=== PATIENT | male | born 1960 | race Caucasian/White ===

== ENCOUNTER 2017-07-09 11:06 | Inpatient (IN) ==
[2017-07-09] MEDS ORDERED: IOPAMIDOL 100 ML BOTTLE IJ ONE (11:07)
[2017-07-09] MEDS ORDERED: 0.9 % SODIUM CHLORIDE 1,000 ML IV ONE (11:12)
[2017-07-09] MEDS ORDERED: ONDANSETRON 4 MG/2 ML VIAL IV ONE (11:12)
[2017-07-09 11:42] LABS: Basophils # (Auto) 0.1 K/mcL (0.0-0.3); Basophils % (Auto) 0.5 % (0.0-2.0); Eosinophils # (Auto) 0 K/mcL (0.0-0.7); Eosinophils % (Auto) 0 % (0.0-7.0); Granulocytes % (Auto) 87.2 % (38.0-78.0); Lymphocytes # (Auto) 1.1 K/mcL (1.5-4.8); Lymphocytes % (Auto) 6.7 % (15.5-49.0); Mean Corpuscular HGB Conc 33.7 g/dL (31.0-36.0); Mean Corpuscular Hemoglobin 31.7 pg (26.0-34.0); Monocytes # (Auto) 0.9 K/mcL (0.1-0.9); Monocytes % (Auto) 5.6 % (1.0-12.0); Platelet Count 249 K/mcL (140-440); Red Cell Distribution Width 12.9 % (11.5-14.5)
[2017-07-09] MEDS ORDERED: HYDROmorphone 2 MG/ML SYRINGE IV SCH (11:45)
[2017-07-09 12:00] LABS: ALT/SGPT 34 U/l (0-40); Albumin 4.7 gm/dL (3.2-5.2); Albumin/Globulin Ratio 1.7 (1.0-2.3); Alkaline Phosphatase 79 U/L (39-117); Blood Urea Nitrogen 17 mg/dl (6-20); Lipase 16 U/L (7-60)
--- NOTE | 2017-07-09 12:22 | XRay Report ---
CLINICAL INFORMATION: Abdominal pain. Constipation. TECHNIQUE: Supine and upright AP abdomen COMPARISON: Previous examinations dated 05/24/2016, 05/23/2016. FINDINGS: There is a spinal cord stimulator present. Patient has undergone previous lumbar surgery with posterior decompression and spinal fusion from L2 through the sacrum. There is gas throughout small and large bowel. Colon is distended and measures approximately 7 cm in maximum cross-sectional diameter. No transition point identified. There is no pneumoperitoneum. No biliary or portal venous gas. No pneumatosis. Findings are essentially unchanged since previous examinations. 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 Generalized chronic ileus of uncertain etiology is possible. No acute or focal abnormalities. No interval change IMPRESSION: Gaseous distention of small and large bowel. Appearance is essentially unchanged since 05/23/2016 Interpreted and Authenticated by: Marcel Mae 07/09/17
[2017-07-09] MEDS ORDERED: HYDROmorphone 2 MG/ML SYRINGE IV PRN (13:50)
--- NOTE | 2017-07-09 14:05 | Cat Scan Report ---
CLINICAL INFORMATION: Abdominal pain. History of small bowel obstruction COMPARISON: Previous CT scan dated 05/23/2016. Previous plain film examination dated 07/09/2017 and 05/24/2016 TECHNIQUE: Axial images were obtained through the abdomen and pelvis. Sagittally and coronally reformatted images. 80 mL nonionic contrast material injected intravenously. Oral contrast material was administered FINDINGS: There is gas and fecal material within the colon. There is dilatation of jejunum and a portion of the ileum. There is dilute contrast material was in the jejunum and fluid within the ileum. There is small bowel feces sign. There is a transition point in the right side of the abdomen. Transition point appears to be best visualized on coronal image 63/154 and sagittal image 61/179. A definite closed loop obstruction is not identified appearance is consistent with mechanical small bowel structures in. This is probably partial and chronic or intermittent. There is no pneumoperitoneum. No pneumatosis. No biliary or portal venous gas. No localized wall thickening. No evidence for bowel ischemia. There is no free intraperitoneal fluid. I am not given a history of previous surgery. If there has been surgery this obstruction may be secondary to adhesions. Internal hernia is possible. Lung bases are negative for. No consolidation. No pleural fluid. No pericardial fluid. There is a small hiatal hernia. Stomach is distended and filled with contrast material. Liver is negative. No focal intrahepatic abnormality. There are surgical clips in the gallbladder fossa. No dilated bile ducts. Spleen is negative. No splenomegaly. Normal enhancement splenic and portal veins Negative pancreas. No pancreatic mass. No peripancreatic abnormality. Negative adrenal glands. Kidneys are negative. No solid or cystic mass. No hydronephrosis. There are bladder is negative. No bladder calculi. There are multiple phleboliths within the pelvis. No intra-abdominal abscess. No inguinal or anterior abdominal wall hernia. No retroperitoneal or mesenteric adenopathy. Patient has undergone previous lumbar surgery with posterior fusion extending from L3 through S1. There are spinal cord stimulator leads present. IMPRESSION: 1. Mechanical small bowel obstruction with transition point in the right side of the lower abdomen. There continues to be gas and fecal material within the colon consistent with partial mechanical small bowel obstruction which is probably chronic or recurrent 2. Obstruction is probably related to adhesions or internal hernia Interpreted and Authenticated by: Marcel Mae 07/09/17
--- NOTE | 2017-07-09 14:47 | Emergency Department Note ---
Abdominal Pain HPI - General Chief Complaint: Abdominal Pain Stated Complaint: L upper abd pain Time Seen by Provider: 07/09/17 11:12 Source: patient, EMS Mode of arrival: EMS Limitations: no limitations - History of Present Illness HPI Narrative: 56-year-old male presents with diffuse abdominal pain, worse in the left upper quadrant. Believes he has a bowel obstruction. States he has had around till 10 bowel obstructions and this is exactly what happens. Last bowel movement was small and hard and was a couple days ago. States he has adhesions and scar tissues which cause chronic bowel obstructions. Has been vomiting today. Abdominal pain for 3-4 days getting worse. No fever. Positive chills. No dysuria or frequency. No treatments prior to arrival. Consistency: constant, other (With distention) Location: diffuse Associated symptoms: Reports: nausea, vomiting, chills, constipation. Denies: diarrhea, fever, dysuria, hematemesis, hematochezia, hematuria, anorexia, syncope - Related Data Home Medications Medication Instructions Recorded Confirmed Albuterol Sulfate [Proair Hfa] 1 - 2 puff PO Q4HP PRN 05/23/16 07/09/17 Bisacodyl [Dulcolax] 5 mg PO BID 05/23/16 07/09/17 Cetirizine HCl [Zyrtec] 10 mg PO DAILY 05/23/16 07/09/17 Fexofenadine [Cindy] 180 mg PO DAILY 05/23/16 07/09/17 Montelukast Sodium [Singulair] 10 mg PO DAILY 05/23/16 07/09/17 Theophylline Anhydrous 400 mg PO BID@0900,1400 05/23/16 07/09/17 [Theophylline] Zolpidem Tartrate [Ambien Cr] 12.5 mg PO HS 05/23/16 07/09/17 Cholecalciferol (Vitamin D3) 50,000 unit PO UD 05/24/16 07/09/17 [Vitamin D3] EPINEPHrine [Adrenalin] 0.33 ml SQ PRN PRN 05/24/16 07/09/17 HYDROcodone/APAP 10/325MG [[place] 1 tab PO Q4H PRN 05/24/16 07/09/17 10/325Mg] Ipratropium/Albuterol Sulfate 2 puff INH QID 05/24/16 07/09/17 [Combivent] Ipratropium/Albuterol [Duoneb] 3 ml NEB Q4HP PRN 05/24/16 07/09/17 Nefazodone HCl 300 mg PO BID@0900,1400 05/24/16 07/09/17 Omeprazole [Prilosec] 40 mg PO ACB 05/24/16 07/09/17 buPROPion [Wellbutrin Sr] 100 mg PO DAILY 05/24/16 07/09/17 predniSONE [Prednisone] 10 mg PO QOD@09,15,21 05/24/16 07/09/17 Previous Rx's Medication Instructions Recorded Beclomethasone Dipropionate [Qvar 2 puff INH BID #1 inhaler 05/27/16 40] Allergies Allergy/AdvReac Type Severity Reaction Status Date / Time iodine Allergy Mild Hives Verified 07/09/17 11:11 morphine AdvReac Mild Itching Verified 07/09/17 15:28 NUTS Allergy Severe Anaphylaxis Uncoded 03/14/17 15:11 SHELLFISH Allergy Severe Anaphylaxis Uncoded 03/14/17 15:11 Review of Systems All systems ED: reviewed and negative except as stated. Abdominal Pain PMH - Past Medical History Medical history: Reports: asthma, other (chronic back pain uses pain clinic, hx of sbo- recurrent, asthma) Surgical history ED: Reports: other (back surgery) - Social History Smoking status: Former smoker Alcohol use: Reports: None Drug use: Reports: none Physical Exam Limitations: no limitations General appearance: alert, in no apparent distress Head: atraumatic, normocephalic, normal inspection Eye: Present: normal appearance. Absent: conjunctival injection ENT: normal exam, normal oropharynx, mucous membranes moist, TM's normal bilaterally, normal external ear exam Neck: Present: normal inspection, trachea midline. Absent: tenderness, lymphadenopathy Chest: Present: normal inspection, symmetric chest wall rise Respiratory: Present: normal lung sounds bilaterally. Absent: respiratory distress, wheezes, accessory muscle use Cardiovascular: Present: regular rate, normal heart sounds Abdominal: Present: distention, tenderness, hypoactive bowel sounds. Absent: guarding, rebound (Diffuse) Extremities: Present: normal inspection Neurological: Present: alert, oriented X3 Psychiatric: Present: normal affect, normal mood Skin: Present: warm, dry, intact, normal color. Absent: rash, cyanosis, diaphoresis, erythema Course Course Narrative: CT shows small bowel obstruction. Patient is required multiple doses of IV pain medication and nausea medication to keep pain and nausea under control. I did speak with Dr. Paul who agrees to admit patient. Vital Signs Temperature 97.8 F 07/09/17 11:07 Pulse Rate 71 07/09/17 11:07 Respiratory Rate 20 07/09/17 11:07 Blood Pressure 130/92 07/09/17 11:07 Temperature 97.8 F 07/09/17 11:07 Pulse Rate 63 07/09/17 15:01 Respiratory Rate 11 L 07/09/17 15:01 Blood Pressure 121/86 07/09/17 15:01 Pulse Oximetry (%) 94 07/09/17 15:01 Abdominal Pain - Lab Data Lab results reviewed: Yes I reviewed the patient's lab results. Result diagrams: 07/09/17 11:19 07/09/17 11:19 Lab Results 07/09/17 07/09/17 07/09/17 Range/Units 11:19 11:19 11:19 WBC 16.1 H (4.5-11.0) K/mcL RBC 5.60 (4.50-5.90) M/mcL Hgb 17.7 H (13.5-16.5) g/dL Hct 52.6 (41.0-55.0) % MCV 94.0 (80.0-100.0) fL MCH 31.7 (26.0-34.0) pg MCHC 33.7 (31.0-36.0) g/dL RDW 12.9 (11.5-14.5) % Plt Count 249 (140-440) K/mcL MPV 8.3 (7.4-10.4) fL Gran % 87.2 H (38.0-78.0) % Lymph % (Auto) 6.7 L (15.5-49.0) % Humphreys % (Auto) 5.6 (1.0-12.0) % Eos % (Auto) 0 (0.0-7.0) % Baso % (Auto) 0.5 (0.0-2.0) % Gran # 14.1 H (1.8-8.0) K/mcL Lymph # (Auto) 1.1 L (1.5-4.8) K/mcL Humphreys # (Auto) 0.9 (0.1-0.9) K/mcL Eos # (Auto) 0 (0.0-0.7) K/mcL Baso # (Auto) 0.1 (0.0-0.3) K/mcL VBG Lactic Acid 2.8 H (0.5-2.2) mmol/L Sodium 142 (133-145) mmol/L Potassium 4.0 (3.3-5.1) mmol/L Chloride 102 (96-108) mmol/L Carbon Dioxide 25 (22-30) mmol/L Anion Gap 15.0 (8-16) BUN 17 (6-20) mg/dl Creatinine 0.8 (0.7-1.2) mg/dl GFR Calculation 101 Glucose 140 H (70-105) mg/dL Calcium 10.1 (8.6-10.4) mg/dl Total Bilirubin 0.8 (0.0-1.0) mg/dL AST 25 (0-37) U/l ALT 34 (0-40) U/l Alkaline Phosphatase 79 (39-117) U/L Total Protein 7.5 (5.9-8.4) gm/dL Albumin 4.7 (3.2-5.2) gm/dL Globulin 2.8 (2.2-3.7) gm/dL Albumin/Globulin Ratio 1.7 (1.0-2.3) Lipase 16 (7-60) U/L - Radiology Data Radiology results reviewed: Yes I reviewed the patient's radiology results. Disposition Pt seen by [facility] only: Yes Clinical Impression: Abdominal pain, Vomiting, Small bowel obstruction Disposition: Home, Self-Care Condition: Fair Referrals: Ken Mena DO [Primary Care Provider] - Priya Paul MD [Physician] - Time of Disposition: 15:00
[2017-07-09] MEDS ORDERED: ONDANSETRON 4 MG/2 ML VIAL IV PRN (14:52)
--- NOTE | 2017-07-09 15:16 | Emergency Department Note ---
ED Note Addendum Note Addendum: PT EXAMINED AND LAB AND X RAY REVIEWED. AGREE WITH CONSULT TO DR ALEGRIA AND ADMISSION
[2017-07-09] MEDS ORDERED: ALBUTEROL SULFATE 1 PUFF INHALER INH PRN (15:24)
[2017-07-09] MEDS ORDERED: EPINEPHrine 1 MG/ML AMPUL SQ PRN (15:24)
[2017-07-09] MEDS ORDERED: PROMETHAZINE 25 MG/ML VIAL IV PRN (15:31)
[2017-07-09] MEDS ORDERED: METOPROLOL TARTRATE 5 MG/5 ML VIAL IV SCH (15:45)
[2017-07-09] MEDS: PANTOPRAZOLE 40 MG VIAL IV SCH (17:07)
[2017-07-09] MEDS: METOCLOPRAMIDE 10 MG/2 ML VIAL IV SCH (17:07)
[2017-07-09] MEDS: 0.9 % SODIUM CHLORIDE 1,000 ML IV SCH ×3 (17:41→21:22)
[2017-07-09] MEDS: NEFAZODONE PO SCH (17:42)
[2017-07-09] MEDS: HYDROmorphone 2 MG/ML SYRINGE IV PRN ×2 (17:42→21:20)
--- NOTE | 2017-07-09 17:48 | General Surg History&Physical ---
History of Present Illness Patient information: Note initiated : 07/09/17 at 5:44 pm Service Date, if different from initiated Date: [] Patient: Scott Bright a 56 y/o M admitted on 07/09/17 for L upper abd pain. Chief Complaint: [] HPI: Mr. Bright is a 56 year old M who was admitted with partial intestinal obstruction complicated by chronic narcotic use with narcotic induced constipation and ileus. The patient had onset of crampy diffuse abdominal pain about 1700 hrs. on 08 July. This was followed by large volume emesis which prompted him to finally come to the emergency room. In the emergency room he was noted to have a tender dilated abdomen with increased dilation of small bowel as well as colon with increased stool in his colon. His last bowel movement was 3 days ago but he has had flatus at least twice a day. He states that his pain is better his weight has been stable. The patient was admitted to this facility in May 2016 with a similar picture. He has a history of recurrent intestinal obstruction. 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 He has had multiple admissions to [facility] and has been treated primarily with decompression and bowel rest. He had his last operation at hospital in [facility] in January 2017. He had a adhesio lysis there. I last evaluated him in late March 2017 and he was doing well. He states that he did well as long as he took his MiraLAX but over the last few days he has not taken it as prescribed. He continues to take 60 mg of hydrocodone per day which is a major aggravating factor in addition to his adhesive disease. Review of Systems - Constitutional as per HPI - EENT Nose, mouth and throat: headache(s), no dysphagia, no sore throat - Cardiovascular palpatations, rapid heart rate, no chest pain, no dyspnea on exertion - Respiratory wheezing - Gastrointestinal abdominal pain, belching, bloating, change in bowel habits, change in stool character, constipation, dyspepsia, early satiety, heartburn, nausea, vomiting - Genitourinary no dysuria, no urinary frequency, no urinary incontinence, no urinary urgency - Musculoskeletal arthralgias, back pain, joint swelling, myalgias, stiffness - Integumentary no new lesions, no pruritus, no rash - Neurological no abnormal gait, no confusion, no dizziness - Psychiatric anxiety, depression, mood swings, panic attacks - Endocrine palpitations - Hematologic/Lymphatic no easy bleeding, no easy bruising, no lymphadenopathy - Allergic/Immunologic tongue swelling, throat swelling, uticaria, wheezing, lip swelling Past History Past medical history: History of idiopathic anaphylaxis History of chronic asthma with frequent exacerbations History of chronic low back pain History of recurrent small bowel obstruction Past surgical history: Exploratory laparotomy for volvulus 2 Exploratory laparotomy for adhesive disease 3 Small bowel resection 1 Lumbar fusion Spinal stimulator placement Past family history: Diabetes mellitus Coronary artery disease Past social history: former smoker Disabled No alcohol use No drug use Medications and Allergies Home Medications Medication Instructions Recorded Confirmed Type Albuterol Sulfate [Proair Hfa] 1 - 2 puff PO Q4HP PRN 05/23/16 07/09/17 History Bisacodyl [Dulcolax] 5 mg PO BID 05/23/16 07/09/17 History Cetirizine HCl [Zyrtec] 10 mg PO DAILY 05/23/16 07/09/17 History Fexofenadine [Cindy] 180 mg PO DAILY 05/23/16 07/09/17 History Montelukast Sodium [Singulair] 10 mg PO DAILY 05/23/16 07/09/17 History Theophylline Anhydrous 400 mg PO BID@0900,1400 05/23/16 07/09/17 History [Theophylline] Zolpidem Tartrate [Ambien Cr] 12.5 mg PO HS 05/23/16 07/09/17 History Cholecalciferol (Vitamin D3) 50,000 unit PO UD 05/24/16 07/09/17 History [Vitamin D3] EPINEPHrine [Adrenalin] 0.33 ml SQ PRN PRN 05/24/16 07/09/17 History HYDROcodone/APAP 10/325MG [[place] 1 tab PO Q4H PRN 05/24/16 07/09/17 History 10/325Mg] Ipratropium/Albuterol Sulfate 2 puff INH QID 05/24/16 07/09/17 History [Combivent] Ipratropium/Albuterol [Duoneb] 3 ml NEB Q4HP PRN 05/24/16 07/09/17 History Nefazodone HCl 300 mg PO BID@0900,1400 05/24/16 07/09/17 History Omeprazole [Prilosec] 40 mg PO ACB 05/24/16 07/09/17 History buPROPion [Wellbutrin Sr] 100 mg PO DAILY 05/24/16 07/09/17 History predniSONE [Prednisone] 10 mg PO QOD@09,15,21 05/24/16 07/09/17 History Beclomethasone Dipropionate [Qvar 2 puff INH BID #1 inhaler 05/27/16 07/09/17 Rx 40] Allergies Allergy/AdvReac Type Severity Reaction Status Date / Time iodine Allergy Mild Hives Verified 07/09/17 11:11 morphine AdvReac Mild Itching Verified 07/09/17 15:28 NUTS Allergy Severe Anaphylaxis Uncoded 03/14/17 15:11 SHELLFISH Allergy Severe Anaphylaxis Uncoded 03/14/17 15:11 Exam Temp Pulse Resp BP Pulse Ox 97.8 F 66 10 L 135/91 93 07/09/17 16:36 07/09/17 16:36 07/09/17 16:36 07/09/17 16:36 07/09/17 16:36 - General physical appearance well developed, well nourished, moderate distress, moderate pain, obese - Eyes PERRL, normal ocular movement. negative: icteric - ENT normal pinna, normal nares, normal mucosa, no hearing loss, no congestion, other (Mucosa moist) - Head Head exam IM: Present: atraumatic, normal inspection, normocephalic - Neck no masses, no bruits, trachea midline, no lymphadectomy, no venous distension - Cardiovascular Cardiovascular exam IM: Present: normal rate and rhythm - Respiratory normal expansion, normal respiratory effort, clear to percussion, other ( Scattered wheezes) - Abdomen Abdomen: Present: soft, tender (Moderate distention with tympany; diffuse tenderness; well-healed midline scar), bowel sounds Hernia: Present: none - Genitourinary Present: normal penis with no external lesions - Integumentary Present: no rash, no growths, no abnormal pigmentation - Neurologic Present: normal coordination, normal sensation, other (Nerves II through XII intact; no focal motor deficit) - Musculoskeletal Present: normal gait (; gait and stance intact), normal posture - Psychiatric Present: oriented to time, oriented to person, oriented to place, speech is normal, memory intact Assessment and Plan (1) Adynamic ileus Status: Acute (2) Small bowel obstruction Relistor 12 mg subcu daily 4 Repeat abdominal x-rays in the morning Reglan 10 mg IV every 6 IV narcotic analgesics for pain Status: Acute (3) JENNA (obstructive sleep apnea) Use CPAP as needed and supplemental O2 as needed Status: Chronic (4) Depression Continue home medication with sips of water Status: Chronic Qualifiers: Depression Type: major depressive disorder Major depression recurrence: recurrent Active/Remission status: currently active Psychotic features: without psychotic features (5) GERD (gastroesophageal reflux disease) Reglan 10 mg IV every 6 hours Status: Chronic Qualifiers: Esophagitis presence: without esophagitis Qualified Code(s): K21.9 - Gastro -esophageal reflux disease without esophagitis (6) Spinal stenosis Status: Chronic (7) Chronic asthma not affecting current episode of care DuoNeb every 6 hours as needed Status: Chronic (8) Idiopathic anaphylactic reaction Status: Chronic (9) Chronic lower back pain Status: Chronic Qualifiers: Back pain laterality: bilateral Sciatica presence: without sciatica Qualified Code(s): M54.5 - Low back pain; G89.29 - Other chronic pain
[2017-07-09] MEDS: METHYLNALTREXONE BROMIDE 12 MG/0.6 ML SYRINGE SQ SCH (17:59)
[2017-07-09] MEDS: BECLOMETHASONE DIPROPIONATE 40MCG INHALER INH SCH (21:23)
[2017-07-10] MEDS: METOCLOPRAMIDE 10 MG/2 ML VIAL IV SCH ×5 (00:02→23:40)
[2017-07-10] MEDS ORDERED: HYDROmorphone 2 MG/ML SYRINGE ONE ×2 (00:35→04:53)
[2017-07-10] MEDS: 0.9 % SODIUM CHLORIDE 1,000 ML IV SCH ×7 (01:28→23:41)
[2017-07-10] MEDS: HYDROmorphone 2 MG/ML SYRINGE IV PRN ×6 (04:51→23:06)
--- NOTE | 2017-07-10 05:58 | XRay Report ---
CLINICAL INFORMATION: Esophagogastric tube placement. Bowel obstruction TECHNIQUE: AP supine portable abdomen COMPARISON: Plain film examination and CT scan dated 07/09/2017 FINDINGS: Interval placement of an esophagogastric tube with its tip in the body of the stomach,. Persistent dilated gas-filled small bowel consistent with bowel obstruction. IMPRESSION: Esophagogastric tube in the stomach Interpreted and Authenticated by: aMrcel Mae 07/10/17
[2017-07-10] MEDS: PANTOPRAZOLE 40 MG VIAL IV SCH ×2 (07:02→16:50)
--- NOTE | 2017-07-10 08:20 | General Surgery Progress Note ---
Subjective Patient reports: feels better, pain is less, flatus, no bowel movement, nausea, vomiting, afebrile Narrative: Note initiated : 07/10/17 at 8:18 am Service Date, if different from initiated Date: [] Patient: Scott Bright 56 y/o M admitted on 07/09/17 for L upper abd pain. Chief Complaint: [The patient had increasing abdominal distention during the night and he finally relented to having nasogastric tube placed. Since that time he has put out over 1000 cc of nasogastric fluid. He states that he feels much better and his nausea has resolved. His abdomen is less distended and is much softer. His pain and reflux symptoms have also resolved. He has had a small amount of flatus but no bowel movements as yet; he has no other complaints.] Objective Temp Pulse Resp BP Pulse Ox 98.6 F 66 12 109/75 91 07/10/17 08:00 07/10/17 03:48 07/10/17 08:00 07/10/17 08:00 07/10/17 08:00 - Additional Data Intake & Output - Last 24 hours: Intake & Output 07/08/17 07/09/17 07/10/17 07/11/17 05:59 05:59 05:59 05:59 Intake Total 3825 / 3825 Output Total 1600 / 1600 Balance 2225 / 2225 Weight 211 lb - General physical appearance no distress, no pain, obese - Eyes PERRL - ENT no congestion - Neck no venous distension - Respiratory normal expansion, normal respiratory effort, clear to auscultation - Cardiovascular Cardiovascular exam: Present: normal rate and rhythm, JVD, RRR, +S1, +S2 - Abdomen soft, non tender, bowel sounds (Abdomen is softer but still distended; he has hyperactive bowel sounds. There is no tenderness.) - Integumentary no rash, no growths, no abnormal pigmentation - Neurologic normal coordination, normal sensation - Musculoskeletal normal gait, normal posture - Psychiatric oriented to time, oriented to person, oriented to place, speech is normal, memory intact - Labs 07/09/17 11:19 07/09/17 11:19 Diabetes panel 07/09/17 Range/Units 11:19 Sodium 142 (133-145) mmol/L Potassium 4.0 (3.3-5.1) mmol/L Chloride 102 (96-108) mmol/L Carbon Dioxide 25 (22-30) mmol/L BUN 17 (6-20) mg/dl Creatinine 0.8 (0.7-1.2) mg/dl Glucose 140 H (70-105) mg/dL Calcium 10.1 (8.6-10.4) mg/dl AST 25 (0-37) U/l ALT 34 (0-40) U/l Alkaline Phosphatase 79 (39-117) U/L Total Protein 7.5 (5.9-8.4) gm/dL Albumin 4.7 (3.2-5.2) gm/dL Calcium panel 07/09/17 Range/Units 11:19 Calcium 10.1 (8.6-10.4) mg/dl Albumin 4.7 (3.2-5.2) gm/dL Pituitary panel 07/09/17 Range/Units 11:19 Sodium 142 (133-145) mmol/L Potassium 4.0 (3.3-5.1) mmol/L Chloride 102 (96-108) mmol/L Carbon Dioxide 25 (22-30) mmol/L BUN 17 (6-20) mg/dl Creatinine 0.8 (0.7-1.2) mg/dl Glucose 140 H (70-105) mg/dL Calcium 10.1 (8.6-10.4) mg/dl Adrenal panel 07/09/17 Range/Units 11:19 Sodium 142 (133-145) mmol/L Potassium 4.0 (3.3-5.1) mmol/L Chloride 102 (96-108) mmol/L Carbon Dioxide 25 (22-30) mmol/L BUN 17 (6-20) mg/dl Creatinine 0.8 (0.7-1.2) mg/dl Glucose 140 H (70-105) mg/dL Calcium 10.1 (8.6-10.4) mg/dl Total Bilirubin 0.8 (0.0-1.0) mg/dL AST 25 (0-37) U/l ALT 34 (0-40) U/l Alkaline Phosphatase 79 (39-117) U/L Total Protein 7.5 (5.9-8.4) gm/dL Albumin 4.7 (3.2-5.2) gm/dL Assessment and Plan (1) Adynamic ileus Status: Acute Assessment and plan: Relistor will be continued Current Visit: Yes (2) Small bowel obstruction Status: Acute Assessment and plan: Nasogastric suction will be continued Current Visit: Yes (3) JENNA (obstructive sleep apnea) Status: Chronic Assessment and plan: Will use CPAP and supplemental oxygen as needed Current Visit: No (4) Depression Status: Chronic Current Visit: No (5) GERD (gastroesophageal reflux disease) Status: Chronic Assessment and plan: Continue present medication Current Visit: No (6) Spinal stenosis Status: Chronic Current Visit: No (7) Chronic asthma not affecting current episode of care Status: Chronic Current Visit: No (8) Idiopathic anaphylactic reaction Status: Chronic Current Visit: No (9) Chronic lower back pain Status: Chronic Current Visit: No - Time Spent With Patient Total time spent is greater than 50% in coordination of care (as documented) at patient's floor/unit and/or counseling patient:
[2017-07-10] MEDS: NEFAZODONE PO SCH ×2 (09:00→18:15)
[2017-07-10] MEDS ORDERED: FLU VACC QS2017-18 36MOS UP/PF 60 MCG/0.5 ML SYRINGE IM ONE (10:00)
[2017-07-10] MEDS: METHYLNALTREXONE BROMIDE 12 MG/0.6 ML SYRINGE SQ SCH (10:02)
[2017-07-10] MEDS: IPRATROPIUM/ALBUTEROL 3 ML AMPUL.NEB NEB PRN ×2 (11:36→22:24)
[2017-07-10] MEDS: BECLOMETHASONE DIPROPIONATE 40MCG INHALER INH SCH ×2 (12:45→21:39)
[2017-07-11] MEDS: HYDROmorphone 2 MG/ML SYRINGE IV PRN ×6 (03:58→23:31)
[2017-07-11] MEDS: 0.9 % SODIUM CHLORIDE 1,000 ML IV SCH ×5 (04:45→23:08)
[2017-07-11] MEDS: METOCLOPRAMIDE 10 MG/2 ML VIAL IV SCH ×4 (05:25→23:13)
[2017-07-11] MEDS: PANTOPRAZOLE 40 MG VIAL IV SCH ×2 (07:14→16:53)
[2017-07-11] MEDS: NEFAZODONE PO SCH ×2 (07:14→13:11)
[2017-07-11] MEDS: BECLOMETHASONE DIPROPIONATE 40MCG INHALER INH SCH ×2 (07:41→19:59)
[2017-07-11] MEDS: IPRATROPIUM/ALBUTEROL 3 ML AMPUL.NEB NEB PRN (07:41)
[2017-07-11] MEDS ORDERED: LORazepam 2 MG/ML VIAL IV ONE (08:08)
[2017-07-11 08:28] LABS: Basophils # (Auto) 0 K/mcL (0.0-0.3); Basophils % (Auto) 0.2 % (0.0-2.0); Eosinophils # (Auto) 0.1 K/mcL (0.0-0.7); Eosinophils % (Auto) 1.2 % (0.0-7.0); Granulocytes % (Auto) 68.7 % (38.0-78.0); Lymphocytes # (Auto) 2.3 K/mcL (1.5-4.8); Lymphocytes % (Auto) 20.9 % (15.5-49.0); Mean Cell Volume 94.4 fL (80.0-100.0); Mean Corpuscular HGB Conc 34.2 g/dL (31.0-36.0); Mean Corpuscular Hemoglobin 32.3 pg (26.0-34.0); Platelet Count 179 K/mcL (140-440); RBC 4.53 M/mcL (4.50-5.90); Red Cell Distribution Width 12.7 % (11.5-14.5)
--- NOTE | 2017-07-11 08:43 | XRay Report ---
CLINICAL INFORMATION: Small bowel obstruction TECHNIQUE: AP supine and upright abdomen COMPARISON: Previous CT scan dated 07/09/2017. Plain film examinations dated 07/09/2017 and 05/24/2016 FINDINGS: Esophagogastric tube within the gastric antrum or duodenal bulb. There is gas throughout the colon. There is some contrast material with in the colon secondary to previous CT scan. There continues to BE gas-filled small bowel with dilatation. Maximum cross-sectional diameter of the small bowel measures approximately 6 cm. Continued radiographic follow-up recommended. No pneumoperitoneum. No pneumatosis. No biliary or portal venous gas. IMPRESSION: 1. Improved abdomen. There is gas throughout the colon. 2. There continues to be gas-filled dilated small bowel. Follow-up radiograph recommended. Interpreted and Authenticated by: Marcel Mea 07/11/17
[2017-07-11 09:13] LABS: ALT/SGPT 22 U/l (0-40); Albumin 3.5 gm/dL (3.2-5.2); Albumin/Globulin Ratio 1.6 (1.0-2.3); Alkaline Phosphatase 67 U/L (39-117); Bilirubin,Direct 0.2 mg/dL (0.0-0.3); Blood Urea Nitrogen 15 mg/dl (6-20); Gamma Glutamyl Transpeptidase 17 U/L (8-61); Magnesium 2.1 mg/dL (1.6-2.5); Uric Acid 6.6 mg/dL (2.5-8.0)
[2017-07-11] MEDS ORDERED: LORazepam 1 MG TABLET PO PRN (09:46)
[2017-07-11] MEDS: METHYLNALTREXONE BROMIDE 12 MG/0.6 ML SYRINGE SQ SCH (10:48)
--- NOTE | 2017-07-11 17:22 | General Surgery Progress Note ---
Subjective Patient reports: feels better, pain is less, no flatus, no bowel movement, shortness of breath, afebrile Narrative: Note initiated : 07/11/17 at 5:19 pm Service Date, if different from initiated Date: [] Patient: Scott Bright 56 y/o M admitted on 07/09/17 for L Upper Abd Pain/Small Bowel Obstruction, Vomiting. Chief Complaint: [Patient is stable. He has much less abdominal pain. His abdomen is also softer and less distended. He has not had flatus or bowel movement. He has significant anxiety which is exacerbated by minimal situations. Associated with his anxiety is the onset of wheezing which appears to be more upper airway and parenchymal. His abdominal x-rays shows large volume of gas in his large intestines. Discussed with him the need for saline enema.] Objective Temp Pulse Resp BP Pulse Ox 98.6 F 65 12 147/76 95 07/11/17 16:00 07/11/17 07:42 07/11/17 16:00 07/11/17 16:00 07/11/17 16:00 - Additional Data Intake & Output - Last 24 hours: Intake & Output 07/09/17 07/10/17 07/11/17 07/12/17 05:59 05:59 05:59 05:59 Intake Total 3825 / 3825 1999 Output Total 1600 / 1600 3150 / 3150 725 / 725 Balance 2225 / 2225 -1150 / -1150 1268 / 1268 Weight 211 lb 213 lb - General physical appearance moderate distress, other (Moderate anxiety) - Eyes PERRL - ENT no congestion - Neck no venous distension - Respiratory other (Bilateral wheezes which are exacerbated by anxiety and resolves after antianxiety medications) - Cardiovascular Cardiovascular exam: Present: normal rate and rhythm, RRR, +S1, +S2 - Abdomen soft, non tender, bowel sounds (Good active bowel sounds and nontender abdomen; he is much less distended) - Integumentary no rash, no growths, no abnormal pigmentation - Neurologic normal coordination, normal sensation - Musculoskeletal normal gait, normal posture - Psychiatric oriented to time, oriented to person, oriented to place, speech is normal, memory intact, other (Moderately severe situational anxiety) - Labs 07/11/17 08:00 07/11/17 08:00 Diabetes panel 07/11/17 Range/Units 08:00 Sodium 144 (133-145) mmol/L Potassium 3.6 (3.3-5.1) mmol/L Chloride 106 (96-108) mmol/L Carbon Dioxide 26 (22-30) mmol/L BUN 15 (6-20) mg/dl Creatinine 0.8 (0.7-1.2) mg/dl Glucose 93 (70-105) mg/dL Calcium 8.5 L (8.6-10.4) mg/dl AST 14 (0-37) U/l ALT 22 (0-40) U/l Alkaline Phosphatase 67 (39-117) U/L Total Protein 5.7 L (5.9-8.4) gm/dL Albumin 3.5 (3.2-5.2) gm/dL Triglycerides 76 (<150) mg/dl Calcium panel 07/11/17 Range/Units 08:00 Calcium 8.5 L (8.6-10.4) mg/dl Phosphorus 2.7 (2.7-4.5) mg/dL Albumin 3.5 (3.2-5.2) gm/dL Pituitary panel 07/11/17 Range/Units 08:00 Sodium 144 (133-145) mmol/L Potassium 3.6 (3.3-5.1) mmol/L Chloride 106 (96-108) mmol/L Carbon Dioxide 26 (22-30) mmol/L BUN 15 (6-20) mg/dl Creatinine 0.8 (0.7-1.2) mg/dl Glucose 93 (70-105) mg/dL Calcium 8.5 L (8.6-10.4) mg/dl Adrenal panel 07/11/17 Range/Units 08:00 Sodium 144 (133-145) mmol/L Potassium 3.6 (3.3-5.1) mmol/L Chloride 106 (96-108) mmol/L Carbon Dioxide 26 (22-30) mmol/L BUN 15 (6-20) mg/dl Creatinine 0.8 (0.7-1.2) mg/dl Glucose 93 (70-105) mg/dL Calcium 8.5 L (8.6-10.4) mg/dl Total Bilirubin 0.8 (0.0-1.0) mg/dL AST 14 (0-37) U/l ALT 22 (0-40) U/l Alkaline Phosphatase 67 (39-117) U/L Total Protein 5.7 L (5.9-8.4) gm/dL Albumin 3.5 (3.2-5.2) gm/dL Assessment and Plan (1) Adynamic ileus Status: Acute Assessment and plan: Relistor will be continued Current Visit: Yes (2) Small bowel obstruction Status: Acute Assessment and plan: Nasogastric suction will be continued Current Visit: Yes (3) JENNA (obstructive sleep apnea) Status: Chronic Assessment and plan: Will use CPAP and supplemental oxygen as needed Current Visit: No (4) Depression Status: Chronic Current Visit: No (5) GERD (gastroesophageal reflux disease) Status: Chronic Assessment and plan: Continue present medication Current Visit: No (6) Spinal stenosis Status: Chronic Current Visit: No (7) Chronic asthma not affecting current episode of care Status: Chronic Current Visit: No (8) Idiopathic anaphylactic reaction Status: Chronic Current Visit: No (9) Chronic lower back pain Status: Chronic Current Visit: No - Time Spent With Patient Total time spent is greater than 50% in coordination of care (as documented) at patient's floor/unit and/or counseling patient:
[2017-07-12] MEDS: HYDROmorphone 2 MG/ML SYRINGE IV PRN ×4 (04:29→20:26)
[2017-07-12] MEDS: METOCLOPRAMIDE 10 MG/2 ML VIAL IV SCH ×4 (05:05→23:36)
[2017-07-12] MEDS: 0.9 % SODIUM CHLORIDE 1,000 ML IV SCH ×5 (05:44→22:40)
[2017-07-12] MEDS: IPRATROPIUM/ALBUTEROL 3 ML AMPUL.NEB NEB PRN ×2 (07:25→20:37)
[2017-07-12] MEDS: NEFAZODONE PO SCH ×2 (07:29→15:34)
[2017-07-12] MEDS: PANTOPRAZOLE 40 MG VIAL IV SCH ×2 (07:29→15:34)
[2017-07-12] MEDS: BECLOMETHASONE DIPROPIONATE 40MCG INHALER INH SCH ×2 (07:30→20:27)
--- NOTE | 2017-07-12 07:41 | XRay Report ---
CLINICAL INFORMATION: History of mechanical small bowel obstruction TECHNIQUE: Supine and upright abdomen COMPARISON: Previous plain film examinations dated 07/11/2017, 07/09/2017. Previous CT scan dated 07/09/2017 FINDINGS: No change in esophagogastric tube position. This remains in the gastric antrum or perhaps in the duodenal bulb. There continues to be gas throughout the colon. There is small bowel gas with some dilatation in the mid abdomen. This is improved. No pneumoperitoneum. No biliary or portal venous gas. No pneumatosis. IMPRESSION: 1. Interval improvement. 2. There continues to be dilated gas-filled small bowel but this is decreased since 07/11/2017. There is gas throughout the length of the colon Interpreted and Authenticated by: Marcel Mae 07/12/17
[2017-07-12] MEDS: METHYLNALTREXONE BROMIDE 12 MG/0.6 ML SYRINGE SQ SCH (11:45)
--- NOTE | 2017-07-12 14:28 | General Surgery Progress Note ---
Subjective Patient reports: feels better, still having pain, flatus, bowel movement, afebrile Narrative: Note initiated : 07/12/17 at 2:25 pm Service Date, if different from initiated Date: [] Patient: Scott Bright 56 y/o M admitted on 07/09/17 for L Upper Abd Pain/Small Bowel Obstruction, Vomiting. Chief Complaint: [Patient is clinically better. He is complaining of pain but he has more back pain than abdominal pain. He has had small liquid bowel movement and has passed a large amount of flatus. He still states that he has mid abdominal gaseous distention. He still has large volume output through his nasogastric tube. Abdominal x-ray shows gas extending into the colon distally but still with dilated loops of proximal small bowel. The distal small bowel does not appear to be dilated. Though he is anxious he does not have any evidence of respiratory difficulty. He has some forced wheezes which was noted when he becomes more anxious but it spontaneously disappears. He has had good relief with IV Ativan and will continue to use this until he can take p.o. medications. Small bowel follow-through will be ordered and a decision will be made about operative therapy based on the results of the study.] Objective Temp Pulse Resp BP Pulse Ox 98.4 F 75 16 127/79 96 07/12/17 12:00 07/12/17 07:39 07/12/17 12:00 07/12/17 12:00 07/12/17 12:00 - Additional Data Intake & Output - Last 24 hours: Intake & Output 07/10/17 07/11/17 07/12/17 07/13/17 05:59 05:59 05:59 05:59 Intake Total 3825 / 3825 1999 / 1999 4163 / 4163 Output Total 1600 / 1600 3150 / 3150 2075 / 2075 1425 / 1425 Balance 2225 / 2225 -1150 / -1150 2088 / 2088 -1425 / -1425 Weight 211 lb 213 lb 214 lb 11.2 oz - General physical appearance well developed, no distress, moderate pain - Eyes PERRL - ENT no congestion - Neck no venous distension - Respiratory other (Good air movement bilaterally but with some forced wheezes which resolved spontaneously without treatment) - Cardiovascular Cardiovascular exam: Present: normal rate and rhythm, RRR, +S1, +S2. Absent: irregular rhythm, JVD, systolic murmur - Abdomen soft, tender, bowel sounds (Mildly tender mid abdomen with hyperactive bowel sounds; moderate distention) - Integumentary no rash, no growths, no abnormal pigmentation - Neurologic normal coordination, normal sensation - Musculoskeletal normal gait, normal posture - Psychiatric oriented to time, oriented to person, oriented to place, speech is normal, memory intact - Labs 07/11/17 08:00 07/11/17 08:00 Assessment and Plan (1) Adynamic ileus Status: Acute Assessment and plan: Relistor will be continued Small bowel follow-through will be ordered Current Visit: Yes (2) Small bowel obstruction Status: Acute Assessment and plan: Nasogastric suction will be continued Current Visit: Yes (3) JENNA (obstructive sleep apnea) Status: Chronic Assessment and plan: Will use CPAP and supplemental oxygen as needed Current Visit: No (4) Depression Status: Chronic Current Visit: No (5) GERD (gastroesophageal reflux disease) Status: Chronic Assessment and plan: Continue present medication Current Visit: No (6) Spinal stenosis Status: Chronic Current Visit: No (7) Chronic asthma not affecting current episode of care Status: Chronic Current Visit: No (8) Idiopathic anaphylactic reaction Status: Chronic Current Visit: No (9) Chronic lower back pain Status: Chronic Current Visit: No - Time Spent With Patient Total time spent is greater than 50% in coordination of care (as documented) at patient's floor/unit and/or counseling patient:
--- NOTE | 2017-07-12 15:20 | XRay Report ---
CLINICAL INFORMATION: Probable ileus. Abnormal radiographs with dilated small and large bowel TECHNIQUE: Water-soluble contrast material was placed in the stomach through an esophagogastric tube. Overhead imaging was performed. COMPARISON: Multiple plain film examinations including most recent dated 07/12/2017 FINDINGS: There is dilated small bowel. Jejunum measures approximately 4 cm in diameter. Ileum is not significantly dilated. Despite jejunal dilatation contrast passes readily through the small bowel into the colon. There is contrast material in the distal sigmoid colon x 1 h post injection. There is no mechanical small bowel obstruction. There is change in caliber between the jejunum and the ileum. A well-defined focal transition point is difficult to identify. IMPRESSION: 1. No obstruction. There is contrast material within the distal sigmoid colon x 1 h post contrast injection 2. Dilated ileum as above Interpreted and Authenticated by: Marcel Mae 07/12/17
[2017-07-12] MEDS ORDERED: DIATRIZOATE MEGLU/DIATRIZO SOD 30 ML BOTTLE PO ONE (15:25)
[2017-07-13] MEDS: HYDROmorphone 2 MG/ML SYRINGE IV PRN ×3 (01:31→09:30)
[2017-07-13] MEDS: 0.9 % SODIUM CHLORIDE 1,000 ML IV SCH ×3 (04:21→08:43)
[2017-07-13] MEDS: METOCLOPRAMIDE 10 MG/2 ML VIAL IV SCH ×2 (05:25→12:32)
[2017-07-13 06:00] LABS: Basophils # (Auto) 0 K/mcL (0.0-0.3); Basophils % (Auto) 0.2 % (0.0-2.0); Eosinophils # (Auto) 0.1 K/mcL (0.0-0.7); Eosinophils % (Auto) 1.4 % (0.0-7.0); Granulocytes % (Auto) 71.6 % (38.0-78.0); Lymphocytes # (Auto) 1.6 K/mcL (1.5-4.8); Lymphocytes % (Auto) 16.2 % (15.5-49.0); Mean Cell Volume 94.8 fL (80.0-100.0); Mean Corpuscular HGB Conc 34.1 g/dL (31.0-36.0); Mean Corpuscular Hemoglobin 32.4 pg (26.0-34.0); Monocytes # (Auto) 1.1 K/mcL (0.1-0.9); Monocytes % (Auto) 10.6 % (1.0-12.0); Platelet Count 183 K/mcL (140-440); RBC 4.22 M/mcL (4.50-5.90); Red Cell Distribution Width 12.5 % (11.5-14.5)
[2017-07-13 06:06] LABS: ALT/SGPT 20 U/l (0-40); Albumin 3.5 gm/dL (3.2-5.2); Albumin/Globulin Ratio 1.6 (1.0-2.3); Alkaline Phosphatase 71 U/L (39-117); Bilirubin,Direct 0.2 mg/dL (0.0-0.3); Blood Urea Nitrogen 9 mg/dl (6-20); Gamma Glutamyl Transpeptidase 30 U/L (8-61); Magnesium 2.2 mg/dL (1.6-2.5); Uric Acid 6.9 mg/dL (2.5-8.0)
[2017-07-13] MEDS: PANTOPRAZOLE 40 MG VIAL IV SCH (07:22)
[2017-07-13] MEDS: NEFAZODONE PO SCH (07:22)
[2017-07-13] MEDS: IPRATROPIUM/ALBUTEROL 3 ML AMPUL.NEB NEB PRN (07:44)
[2017-07-13] MEDS: BECLOMETHASONE DIPROPIONATE 40MCG INHALER INH SCH (07:44)
--- NOTE | 2017-07-13 09:42 | XRay Report ---
CLINICAL INFORMATION: Small bowel obstruction TECHNIQUE: AP supine and upright abdomen COMPARISON: Previous examinations dated 07/12/2017 and 07/11/2017. Comparison made previous CT scan dated 07/09/2017 FINDINGS: There is contrast material throughout the colon from previous CT scan. There continues to be prominent gas-filled small bowel. Appearance is nonconsistent with complete obstruction. Findings are probably secondary to ileus. No pneumatosis. No biliary or portal venous gas. No pneumoperitoneum IMPRESSION: 1. Bowel gas pattern is essentially unchanged 2. Contrast material throughout the colon. There continues to be prominent gas-filled small bowel. Interpreted and Authenticated by: Marcel Mae 07/13/17
--- NOTE | 2017-07-13 12:37 | Discharge Summary ---
Providers - Providers Patient information: Note initiated : 07/13/17 at 12:34 pm Service Date, if different from initiated Date: [] Patient: Scott Bright 56 y/o M admitted on 07/09/17 for L Upper Abd Pain/Small Bowel Obstruction, Vomiting. 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 He had partial obstruction in January and was operated on in [facility] with adhesiolysis. He did well until 3 days prior to admission when he developed increasing abdominal pain and distention. He later developed nausea and vomiting. He presented to the emergency room with dilated small bowel with questionable transition point in mid small bowel. He was placed on nasogastric suction, started on Relistor, had Reglan every 6 hours. Over the next few days he started having flatus and small bowel movements. His gas moved to his colon and he was given soapsuds enema which led to evacuation. Small bowel follow-through was done and the contrast reached the colon in 1 hour. He has had multiple bowel movements since then but still has dilated proximal small bowel. He has tolerated full liquid diet without difficulty and does not have any discomfort. He is discharged home in satisfactory condition. Discharge diagnosis: Partial small bowel obstruction Secondary discharge diagnosis: Intestinal adhesive disease Reason for admission: Small bowel obstruction with nausea and vomiting Pertinent studies/significant findings: Contrast small bowel follow-through Complications: None Exam Temp Pulse Resp BP Pulse Ox 98.6 F 68 18 146/89 98 07/13/17 12:23 07/13/17 12:23 07/13/17 12:23 07/13/17 12:23 07/13/17 12:23 - General physical appearance well developed, well nourished, no distress - Eyes PERRL, normal ocular movement - ENT normal pinna, normal nares, normal mucosa, no hearing loss, no congestion - Head Head exam IM: Present: atraumatic, normocephalic - Neck no masses, no bruits, trachea midline, no lymphadectomy, no venous distension - Cardiovascular Cardiovascular exam IM: Present: normal rate and rhythm - Respiratory normal expansion, normal respiratory effort, clear to percussion, clear to auscultation - Abdomen Abdomen: Present: soft, non tender, bowel sounds, distended (Abdomen is distended and tympanitic but he does not have any tenderness or guarding. He has good active bowel sounds) Hernia: Present: none - Genitourinary Present: normal penis with no external lesions - Integumentary Present: no rash, no growths, no abnormal pigmentation - Neurologic Present: normal coordination, normal sensation - Musculoskeletal Present: normal gait, normal posture - Psychiatric Present: oriented to time, oriented to person, oriented to place, speech is normal, memory intact Discharge Plan - Patient/Caregiver Discharge Instructions Activity: increase activity as tolerated Diet: Regular Diet Additional Instructions: Patient is to advance diet slowly. MiraLAX 17 g in liquid 3-4 times daily Milk of magnesia 3 tablespoons once to twice weekly to keep bowel active Follow-up with primary care physician as needed - Follow up Plan Follow up with: Ken Mena DO [Primary Care Provider] - Priya Paul MD [Physician] - Disposition: Home, Self-Care Prognosis: Good Rehab Potential: Good I certify that the patient requires SNF services.: No Overall status at discharge: patient is not back to baseline Pending Studies Resuscitation Status Full Code Diet NPO Except Ice Chips Diet (NOW) Start SatJul 10 Lunch Albuterol Sulfate (Ventolin) 1 - 2 puff INH Q4HP PRN PRN Reason: Shortness Of Breath Last Admin: 07/10/17 22:23 Dose: 0.5 puff Albuterol/Ipratropium (Duoneb) 3 ml NEB Q4HP PRN PRN Reason: sob Last Admin: 07/13/17 07:44 Dose: 3 ml Admin: 07/12/17 20:37 Dose: 3 ml Admin: 07/12/17 07:25 Dose: 3 ml Admin: 07/11/17 07:41 Dose: 3 ml Admin: 07/10/17 22:24 Dose: 3 ml Admin: 07/10/17 11:36 Dose: 3 ml Beclomethasone Dipropionate (Qvar 40) 2 puff INH BID BRAD Last Admin: 07/13/17 07:44 Dose: 2 puff Admin: 07/12/17 20:27 Dose: 2 puff Admin: 07/12/17 07:30 Dose: 2 puff Admin: 07/11/17 19:59 Dose: 2 puff Admin: 07/11/17 07:41 Dose: 2 puff Admin: 07/10/17 21:39 Dose: 2 puff Admin: 07/10/17 12:45 Dose: 2 puff Admin: 07/09/17 21:23 Dose: Hydromorphone HCl (Dilaudid) 1 mg IV Q2HP PRN PRN Reason: Pain Last Admin: 07/13/17 09:30 Dose: 1 mg Admin: 07/13/17 04:40 Dose: 1 mg Admin: 07/13/17 01:31 Dose: 1 mg Admin: 07/12/17 20:26 Dose: 1 mg Admin: 07/12/17 15:30 Dose: 1 mg Admin: 07/12/17 13:05 Dose: 1 mg Admin: 07/12/17 04:29 Dose: 1 mg Admin: 07/11/17 23:31 Dose: 1 mg Admin: 07/11/17 19:52 Dose: 1 mg Admin: 07/11/17 16:28 Dose: 1 mg Admin: 07/11/17 11:43 Dose: 1 mg Admin: 07/11/17 08:05 Dose: 1 mg Admin: 07/11/17 03:58 Dose: 1 mg Admin: 07/10/17 23:06 Dose: 1 mg Admin: 07/10/17 19:46 Dose: 1 mg Admin: 07/10/17 16:12 Dose: 1 mg Admin: 07/10/17 12:36 Dose: 1 mg Admin: 07/10/17 09:20 Dose: 1 mg Admin: 07/10/17 04:51 Dose: 1 mg Sodium Chloride (Sodium Chloride 0.9%) 1,000 mls @ 150 mls/hr IV .Q6H40M BRAD Last Admin: 07/13/17 08:43 Dose: 150 mls/hr Infusion: 07/13/17 08:43 Dose: 150 mls/hr Admin: 07/13/17 05:30 Dose: 150 mls/hr Infusion: 07/13/17 05:21 Dose: 150 mls/hr Admin: 07/13/17 04:21 Dose: Not Given Admin: 07/12/17 22:40 Dose: 150 mls/hr Infusion: 07/12/17 22:18 Dose: 150 mls/hr Admin: 07/12/17 20:27 Dose: Not Given Admin: 07/12/17 15:37 Dose: 150 mls/hr Admin: 07/12/17 13:49 Dose: Not Given Infusion: 07/12/17 12:25 Dose: 150 mls/hr Admin: 07/12/17 05:44 Dose: 150 mls/hr Infusion: 07/12/17 05:44 Dose: 150 mls/hr Admin: 07/11/17 23:08 Dose: 150 mls/hr Infusion: 07/11/17 23:08 Dose: 150 mls/hr Admin: 07/11/17 16:28 Dose: 150 mls/hr Infusion: 07/11/17 12:59 Dose: 150 mls/hr Admin: 07/11/17 11:50 Dose: Not Given Admin: 07/11/17 06:18 Dose: 150 mls/hr Infusion: 07/11/17 06:18 Dose: 150 mls/hr Admin: 07/11/17 04:45 Dose: Not Given Admin: 07/10/17 23:41 Dose: 150 mls/hr Infusion: 07/10/17 23:31 Dose: 150 mls/hr Admin: 07/10/17 21:39 Dose: Not Given Admin: 07/10/17 16:50 Dose: 150 mls/hr Infusion: 07/10/17 16:43 Dose: 150 mls/hr Admin: 07/10/17 10:02 Dose: 150 mls/hr Metoclopramide HCl (Reglan) 10 mg IV Q6 BRAD Last Admin: 07/13/17 12:32 Dose: 10 mg Admin: 07/13/17 05:25 Dose: 10 mg Admin: 07/12/17 23:36 Dose: 10 mg Admin: 07/12/17 16:03 Dose: 10 mg Admin: 07/12/17 11:45 Dose: 10 mg Admin: 07/12/17 05:05 Dose: 10 mg Admin: 07/11/17 23:13 Dose: 10 mg Admin: 07/11/17 16:53 Dose: 10 mg Admin: 07/11/17 11:54 Dose: 10 mg Admin: 07/11/17 05:25 Dose: 10 mg Admin: 07/10/17 23:40 Dose: 10 mg Admin: 07/10/17 18:13 Dose: 10 mg Admin: 07/10/17 12:36 Dose: 10 mg Admin: 07/10/17 05:03 Dose: 10 mg Admin: 07/10/17 00:02 Dose: 10 mg Admin: 07/09/17 17:07 Dose: 10 mg Pantoprazole Sodium (Protonix) 40 mg IV BIDAC [facility] Last Admin: 07/13/17 07:22 Dose: 40 mg Admin: 07/12/17 15:34 Dose: 40 mg Admin: 07/12/17 07:29 Dose: 40 mg Admin: 07/11/17 16:53 Dose: 40 mg Admin: 07/11/17 07:14 Dose: 40 mg Admin: 07/10/17 16:50 Dose: 40 mg Admin: 07/10/17 07:02 Dose: 40 mg Admin: 07/09/17 17:07 Dose: 40 mg Nefazodone (Serzone) (150 Mg Tab) 2 dose PO BID@0700,1400 [facility] Last Admin: 07/13/17 07:22 Dose: 2 dose Admin: 07/12/17 15:34 Dose: 2 dose Admin: 07/12/17 07:29 Dose: 2 dose Admin: 07/11/17 13:11 Dose: 2 dose Admin: 07/11/17 07:14 Dose: 2 dose Admin: 07/10/17 18:15 Dose: 2 dose Admin: 07/10/17 09:00 Dose: 2 dose Admin: 07/09/17 17:42 Dose: 2 dose Shift Summary 07/13/17 03:07 Shift Summary by Alicia Payne Addendum entered by Alicia Payne, RHerb 07/13/17 04:42: Patient reported having 2 small, liquid BM's tonight. 1mg Dilaudid given again for back pain rated 6/10. Original Note: A&O. Pleasant and cooperative w/ cares. c/o chronic lower back pain rated 6-7/ 10. Gave 1mg IV Dilaudid x2 w/ good results. No c/o abdominal pain. Abdomen round, soft, non-tender. Pt reports passing flatus. Scheduled reglan given. He is up ad kai. Walked in the hallway independently tonight. IV in RFA infusing NS @ 150. Has been tolerating full liquid diet. Initialized on 07/13/17 03:07 - END OF NOTE
== END 2017-07-13 14:20 | disposition home or self-care (01) | DRG 389 ==
LOC: ED 11:06 → MEDSUR 16:25
PROVIDERS: ADMIT Family Medicine Adult Medicine; ATTEND Family Medicine Adult Medicine

== ENCOUNTER 2018-04-07 15:11 | Observation (INO) ==
[2018-04-07] MEDS ORDERED: 0.9 % SODIUM CHLORIDE 1,000 ML IV ONE (15:37)
--- NOTE | 2018-04-07 15:40 | Emergency Department Note ---
Abdominal Pain HPI - General Chief Complaint: Constipation Stated Complaint: Small Bowel Obstruction Time Seen by Provider: 04/07/18 15:16 Source: patient Mode of arrival: ambulatory Limitations: no limitations - History of Present Illness HPI Narrative: 57-year-old male presents with abdominal pain, nausea, vomiting, and bloating since last Saturday. He has a history of small bowel obstructions and has been able to get through them in the past but has not been able to this time. It started on Saturday with the bloating and the vomiting and he tried to drink just clear liquids as well as nothing by mouth for a while. He last night was doing well and thought he was through this but tried to eat and ice cream sandwich and had vomiting bloating and pain. He has had about 4 surgeries because of this. He went to urgent care at [facility] and they did a CT scan which showed small bowel obstruction again. He denies any pain or nausea at this time. Last time he had any stool was on Saturday. He also has not passed gas for at least 3 days. - Related Data Home Medications Medication Instructions Recorded Confirmed Albuterol Sulfate [Proair Hfa] 1 - 2 puff PO Q4HP PRN 05/23/16 07/09/17 Bisacodyl [Dulcolax] 5 mg PO BID 05/23/16 07/09/17 Cetirizine HCl [Zyrtec] 10 mg PO DAILY 05/23/16 07/09/17 Fexofenadine [Cindy] 180 mg PO DAILY 05/23/16 07/09/17 Montelukast Sodium [Singulair] 10 mg PO DAILY 05/23/16 07/09/17 Theophylline Anhydrous 400 mg PO BID@0900,1400 05/23/16 07/09/17 [Theophylline] Zolpidem Tartrate [Ambien Cr] 12.5 mg PO HS 05/23/16 07/09/17 Cholecalciferol (Vitamin D3) 50,000 unit PO UD 05/24/16 07/09/17 [Vitamin D3] EPINEPHrine [Adrenalin] 0.33 ml SQ PRN PRN 05/24/16 07/09/17 HYDROcodone/APAP 10/325MG [[place] 1 tab PO Q4H PRN 05/24/16 07/09/17 10-325Mg] Ipratropium/Albuterol Sulfate 2 puff INH QID 05/24/16 07/09/17 [Combivent] Ipratropium/Albuterol [Duoneb] 3 ml NEB Q4HP PRN 05/24/16 07/09/17 Nefazodone HCl 300 mg PO BID@0900,1400 05/24/16 07/09/17 Omeprazole [Prilosec] 40 mg PO ACB 05/24/16 07/09/17 buPROPion [Wellbutrin Sr] 100 mg PO DAILY 05/24/16 07/09/17 predniSONE [Prednisone] 10 mg PO QOD@09,15,21 05/24/16 07/09/17 Previous Rx's Medication Instructions Recorded Beclomethasone Dipropionate [Qvar 2 puff INH BID #1 inhaler 05/27/16 40] Allergies Allergy/AdvReac Type Severity Reaction Status Date / Time iodine Allergy Mild Hives Verified 07/09/17 11:11 morphine AdvReac Mild Itching Verified 07/09/17 15:28 NUTS Allergy Severe Anaphylaxis Uncoded 03/14/17 15:11 SHELLFISH Allergy Severe Anaphylaxis Uncoded 03/14/17 15:11 Review of Systems All systems ED: reviewed and negative except as stated. Abdominal Pain PMH - Past Medical History Medical history: Reports: asthma, other (chronic back pain uses pain clinic, hx of sbo- recurrent, asthma) Surgical history ED: Reports: cholecystectomy, other (Multiple bowel surgeries from small bowel obstruction) Psychiatric history: Reports: no psych history Family history: Reports: no significant family history - Social History Smoking status: Former smoker Alcohol use: Reports: None Drug use: Reports: none Physical Exam Limitations: no limitations General appearance: alert, in no apparent distress Head: atraumatic Eye: Present: normal appearance. Absent: conjunctival injection Neck: Present: normal inspection, full ROM Chest: Present: normal inspection, symmetric chest wall rise Respiratory: Present: normal lung sounds bilaterally Cardiovascular: Present: regular rate, normal heart sounds Abdominal: Present: soft, distention (mild), tenderness, diminished bowel sounds. Absent: guarding, rebound, rigidity Abdominal tenderness: Present: epigastrium, mild Extremities: Present: normal inspection, full ROM Neurological: Present: alert, oriented X3 Psychiatric: Present: normal affect, normal mood Skin: Present: warm, dry, intact Course Course Narrative: Dr. Paul will admit the patient to evaluate for small bowel obstruction. The patient had labs done and abdomen x-ray at [facility]. 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
[2018-04-07] MEDS ORDERED: ONDANSETRON 4 MG/2 ML VIAL IV PRN ×2 (16:59→17:08)
[2018-04-07] MEDS ORDERED: PROMETHAZINE 25 MG/ML VIAL IV PRN (17:08)
--- NOTE | 2018-04-07 17:30 | General Surg History&Physical ---
History of Present Illness Patient information: Note initiated : 04/07/18 at 5:29 pm Service Date, if different from initiated Date: [] Patient: Scott Bright a 57 y/o M admitted on for Small Bowel Obstruction. Chief Complaint: [] HPI: Mr. Bright is a 57 year old M referred to our emergency room for evaluation small bowel obstruction. The patient has had multiple partial and complete his bowel obstructions in the past. He has a six-day history of abdominal distention with bloating with nausea and vomiting. His last bowel movement was 5 days prior to admission and his last flatus was 3 days prior to admission. He was seen at an outpatient facility and had x-rays done which showed dilated loops of small bowel suggestive of small bowel obstruction. CT was done and this also suggests small bowel obstruction. He is seen in the emergency room where he is having moderate amount of crampy abdominal pain with nausea but no vomiting. He is admitted and will have a small bowel follow-through. Review of the x-rays shows that there is gas traversing through the transverse and descending colon suggesting that his obstruction is partial and not complete. Review of Systems - Constitutional headache(s), no weight gain, no weight loss - EENT Nose, mouth and throat: no dysphagia, no sore throat - Cardiovascular no irregular heart rhythm, no palpatations, no rapid heart rate, no syncope - Respiratory no dyspnea, no wheezing, no chest congestion - Gastrointestinal abdominal pain, bloating, cramping, nausea, vomiting - Genitourinary no urinary frequency, no urinary incontinence - Musculoskeletal no abnormal gait, no back pain, no joint swelling, no muscle cramps, no stiffness - Integumentary no changing lesions, no new lesions, no pruritus, no rash - Neurological headache(s), no abnormal gait, no abnormal hearing, no dizziness, no syncope, no tremor(s) - Psychiatric anxiety, depression, mood swings, panic attacks - Endocrine palpitations - Hematologic/Lymphatic no easy bleeding, no easy bruising, no lymphadenopathy - Allergic/Immunologic no tongue swelling, no throat swelling, no uticaria, no wheezing, no lip swelling Past History Past medical history: History of idiopathic anaphylaxis History of chronic asthma with frequent exacerbations History of chronic low back pain History of recurrent small bowel obstruction Past surgical history: Exploratory laparotomy with volvulus 2 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 3 Small bowel resection 1 Lumbar fusion Lumbar spinal stimulator placement Past family history: Diabetes mellitus Coronary artery disease Past social history: Former smoker Disabled No alcohol use No drug use Medications and Allergies Home Medications Medication Instructions Recorded Confirmed Type Albuterol Sulfate [Proair Hfa] 1 - 2 puff PO Q4HP PRN 05/23/16 04/07/18 History Bisacodyl [Dulcolax] 5 mg PO BID 05/23/16 04/07/18 History Cetirizine HCl [Zyrtec] 10 mg PO DAILY 05/23/16 04/07/18 History Fexofenadine [Cindy] 180 mg PO DAILY 05/23/16 04/07/18 History Montelukast Sodium [Singulair] 10 mg PO DAILY 05/23/16 04/07/18 History Theophylline Anhydrous 400 mg PO BID@0900,1400 05/23/16 04/07/18 History [Theophylline] Zolpidem Tartrate [Ambien Cr] 12.5 mg PO HS 05/23/16 04/07/18 History Cholecalciferol (Vitamin D3) 50,000 unit PO UD 05/24/16 04/07/18 History [Vitamin D3] EPINEPHrine [Adrenalin] 0.33 ml SQ PRN PRN 05/24/16 04/07/18 History HYDROcodone/APAP 10/325MG [Dwight 1 tab PO Q4H PRN 05/24/16 04/07/18 History 10-325Mg] Ipratropium/Albuterol Sulfate 2 puff INH QID 05/24/16 04/07/18 History [Combivent] Ipratropium/Albuterol [Duoneb] 3 ml NEB Q4HP PRN 05/24/16 04/07/18 History Nefazodone HCl 300 mg PO BID@0900,1400 05/24/16 04/07/18 History Omeprazole [Prilosec] 40 mg PO ACB 05/24/16 04/07/18 History buPROPion [Wellbutrin Sr] 100 mg PO DAILY 05/24/16 04/07/18 History predniSONE [Prednisone] 10 mg PO DAILY 05/24/16 04/07/18 History Beclomethasone Dipropionate [Qvar 2 puff INH BID #1 inhaler 05/27/16 04/07/18 Rx 40] Allergies Allergy/AdvReac Type Severity Reaction Status Date / Time iodine Allergy Mild Hives Verified 07/09/17 11:11 morphine AdvReac Mild Itching Verified 07/09/17 15:28 NUTS Allergy Severe Anaphylaxis Uncoded 03/14/17 15:11 SHELLFISH Allergy Severe Anaphylaxis Uncoded 03/14/17 15:11 Exam Temp Pulse Resp BP Pulse Ox 98.1 F 59 L 18 129/83 92 04/07/18 15:11 04/07/18 15:54 04/07/18 15:11 04/07/18 15:54 04/07/18 15:54 - General physical appearance well developed, well nourished, moderate distress, moderate pain - Eyes PERRL, normal ocular movement - ENT normal pinna, normal nares, normal mucosa, no hearing loss, no congestion - Head Head exam IM: Present: atraumatic, normal inspection, normocephalic - Neck no masses, no bruits, trachea midline, no lymphadectomy, no venous distension - Cardiovascular Cardiovascular exam IM: Present: normal rate and rhythm, JVD, RRR, +S1, +S2. Absent: irregular rhythm, systolic murmur, tachycardia - Respiratory normal expansion, normal respiratory effort, clear to percussion, clear to auscultation - Abdomen Abdomen: Present: soft, non tender ( ), tender ( ), bowel sounds Hernia: Present: none - Genitourinary Present: normal penis with no external lesions - Integumentary Present: no rash, no growths, no abnormal pigmentation - Neurologic Present: normal coordination, normal sensation - Musculoskeletal Present: normal gait, normal posture - Psychiatric Present: oriented to time, oriented to person, oriented to place, speech is normal, memory intact Assessment and Plan (1) Small bowel obstruction Status: Acute (2) COPD (chronic obstructive pulmonary disease) Status: Chronic Qualifiers: (3) Depression Status: Chronic (4) JENNA (obstructive sleep apnea) Status: Chronic
[2018-04-07] MEDS: ERTAPENEM 1 GM in 0.9 % SODIUM CHLORIDE 50 ML IV SCH (17:47)
[2018-04-07] MEDS: 0.9 % SODIUM CHLORIDE 1,000 ML IV SCH ×2 (17:50→21:35)
--- NOTE | 2018-04-07 17:58 | XRay Report ---
HISTORY: ITS.REASON: preop evaluation for small bowel obstruction FINDINGS: Lungs are clear normally expanded. The heart size and pulmonary vasculature are normal. There is an electrode in the midthoracic spinal canal. Cervical fusion has been performed in the lower neck. The mediastinum and sterling are normal. IMPRESSION: Normal chest Interpreted and Authenticated by: Wilner Freedman 04/07/18
[2018-04-07] MEDS ORDERED: DIATRIZOATE MEGLU/DIATRIZO SOD 30 ML BOTTLE PO ONE (18:16)
[2018-04-07 18:31] LABS: ALT/SGPT 20 U/l (0-40); Albumin 3.8 gm/dL (3.2-5.2); Albumin/Globulin Ratio 1.8 (1.0-2.3); Alkaline Phosphatase 75 U/L (39-117); Bilirubin,Direct < 0.2 mg/dL (0.0-0.3); Blood Urea Nitrogen 12 mg/dl (6-20); Gamma Glutamyl Transpeptidase 19 U/L (8-61); Uric Acid 9.1 mg/dL (2.5-8.0)
[2018-04-07] MEDS: METOCLOPRAMIDE 10 MG/2 ML VIAL IV SCH ×2 (19:21→23:28)
[2018-04-07] MEDS: HYDROmorphone 2 MG/ML VIAL IV PRN ×2 (19:41→23:28)
[2018-04-07] MEDS: 0.9 % SODIUM CHLORIDE 10 ML SYRINGE IV SCH (20:51)
[2018-04-08] MEDS: 0.9 % SODIUM CHLORIDE 1,000 ML IV SCH ×4 (01:06→15:56)
[2018-04-08] MEDS: 0.9 % SODIUM CHLORIDE 10 ML SYRINGE IV SCH ×3 (04:57→21:53)
[2018-04-08] MEDS: METOCLOPRAMIDE 10 MG/2 ML VIAL IV SCH ×4 (05:25→23:04)
[2018-04-08] MEDS: HYDROmorphone 2 MG/ML VIAL IV PRN ×4 (06:07→22:06)
[2018-04-08 06:11] LABS: Mean Cell Volume 93.9 fL (80.0-100.0); Mean Corpuscular HGB Conc 34.3 g/dL (31.0-36.0); Mean Corpuscular Hemoglobin 32.2 pg (26.0-34.0); Platelet Count 186 K/mcL (140-440); RBC 4.31 M/mcL (4.50-5.90); Red Cell Distribution Width 12.4 % (11.5-14.5)
[2018-04-08] MEDS: PANTOPRAZOLE 40 MG VIAL IV SCH ×2 (07:16→17:48)
[2018-04-08 07:43] LABS: Eosinophils % (Manual) 2 % (0-7); Lymphocytes % 19 % (15-49); Monocytes % (Manual) 7 % (1-12); Platelet Estimate NORMAL (NORMAL); RBC Morphology NORMAL (NORMAL); Segmented Neutrophils % 72 % (38-78)
[2018-04-08] MEDS: ERTAPENEM 1 GM in 0.9 % SODIUM CHLORIDE 50 ML IV SCH (09:55)
[2018-04-08] MEDS: ENOXAPARIN 40 MG/0.4 ML SYRINGE SQ SCH (09:55)
[2018-04-08] MEDS: IPRATROPIUM/ALBUTEROL SULFATE 1 PUFF INHALER INH SCH ×3 (14:36→21:55)
[2018-04-08] MEDS: THEOPHYLLINE ANHYDROUS 400 MG TAB.XL.24H PO SCH (14:40)
--- NOTE | 2018-04-08 16:31 | General Surgery Progress Note ---
Subjective Patient reports: feels better, pain is less, tolerating liquids well, flatus, bowel movement, afebrile Narrative: Note initiated : 04/08/18 at 4:29 pm Service Date, if different from initiated Date: [] Patient: Scott Bright 57 y/o M admitted on 04/07/18 for Small Bowel Obstruction. 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 He had a small bowel follow-through which showed transit through the small bowel at 2 hours and into the colon at 2-1/2 hours. He has had multiple bowel movements and passed large volume of flatus. He has significant distention still but he does not have pain. He has tolerated liquid diet without difficulty.] Objective Temp Pulse Resp BP Pulse Ox 97.2 F 61 16 137/84 96 04/08/18 15:56 04/08/18 15:56 04/08/18 15:56 04/08/18 15:56 04/08/18 15:56 - Additional Data Intake & Output - Last 24 hours: Intake & Output 04/06/18 04/07/18 04/08/18 04/09/18 05:59 05:59 05:59 05:59 Intake Total 3029 / 3029 1000 / 1000 Balance 3029 / 3029 1000 / 1000 Weight 214 lb - General physical appearance well developed, well nourished, no distress, severe distress - Eyes PERRL, normal ocular movement - ENT normal pinna, normal nares, normal mucosa, no hearing loss, no congestion - Neck no masses, no bruits, trachea midline, no lymphadectomy, no venous distension - Respiratory normal expansion, normal respiratory effort, clear to percussion, clear to auscultation - Cardiovascular Cardiovascular exam: Present: normal rate and rhythm, RRR, +S1, +S2. Absent: JVD, tachycardia - Abdomen tender ( no tenderness noted), bowel sounds ( hyperactive bowel sounds), surgical scars (none), masses (none) - Integumentary no rash, no growths, no abnormal pigmentation - Neurologic normal coordination, normal sensation - Musculoskeletal normal gait, normal posture - Psychiatric oriented to time, oriented to person, oriented to place, speech is normal, memory intact - Labs 04/08/18 04:15 04/07/18 17:36 Diabetes panel 04/07/18 Range/Units 17:36 Sodium 137 (133-145) mmol/L Potassium 3.5 (3.3-5.1) mmol/L Chloride 99 (96-108) mmol/L Carbon Dioxide 28 (22-30) mmol/L BUN 12 (6-20) mg/dl Creatinine 0.8 (0.7-1.2) mg/dl Glucose 84 (70-105) mg/dL Calcium 8.7 (8.6-10.4) mg/dl AST 17 (0-37) U/l ALT 20 (0-40) U/l Alkaline Phosphatase 75 (39-117) U/L Total Protein 5.9 (5.9-8.4) gm/dL Albumin 3.8 (3.2-5.2) gm/dL Triglycerides 73 (<150) mg/dl Calcium panel 04/07/18 Range/Units 17:36 Calcium 8.7 (8.6-10.4) mg/dl Phosphorus 2.8 (2.7-4.5) mg/dL Albumin 3.8 (3.2-5.2) gm/dL Pituitary panel 04/07/18 Range/Units 17:36 Sodium 137 (133-145) mmol/L Potassium 3.5 (3.3-5.1) mmol/L Chloride 99 (96-108) mmol/L Carbon Dioxide 28 (22-30) mmol/L BUN 12 (6-20) mg/dl Creatinine 0.8 (0.7-1.2) mg/dl Glucose 84 (70-105) mg/dL Calcium 8.7 (8.6-10.4) mg/dl Adrenal panel 04/07/18 Range/Units 17:36 Sodium 137 (133-145) mmol/L Potassium 3.5 (3.3-5.1) mmol/L Chloride 99 (96-108) mmol/L Carbon Dioxide 28 (22-30) mmol/L BUN 12 (6-20) mg/dl Creatinine 0.8 (0.7-1.2) mg/dl Glucose 84 (70-105) mg/dL Calcium 8.7 (8.6-10.4) mg/dl Total Bilirubin 0.8 (0.0-1.0) mg/dL AST 17 (0-37) U/l ALT 20 (0-40) U/l Alkaline Phosphatase 75 (39-117) U/L Total Protein 5.9 (5.9-8.4) gm/dL Albumin 3.8 (3.2-5.2) gm/dL Assessment and Plan (1) Small bowel obstruction Status: Acute Assessment and plan: Obstructive symptoms have resolved and patient is now having liquid bowel movements.. Will follow-up x-rays in the morning to assure that the obstructive pattern has resolved Current Visit: No (2) COPD (chronic obstructive pulmonary disease) Status: Chronic Assessment and plan: Home medications started Current Visit: No (3) Depression Status: Chronic Assessment and plan: Home medications restarted Current Visit: No (4) JENNA (obstructive sleep apnea) Status: Chronic Current Visit: No - Time Spent With Patient Total time spent is greater than 50% in coordination of care (as documented) at patient's floor/unit and/or counseling patient:
[2018-04-08] MEDS: NEFAZODONE HCL PO SCH (16:39)
[2018-04-08] MEDS ORDERED: ZOLPIDEM 5 MG TABLET PO SCH (21:00)
[2018-04-09] MEDS: HYDROmorphone 2 MG/ML VIAL IV PRN ×3 (04:59→14:18)
[2018-04-09] MEDS: 0.9 % SODIUM CHLORIDE 10 ML SYRINGE IV SCH ×2 (05:01→14:23)
[2018-04-09] MEDS: METOCLOPRAMIDE 10 MG/2 ML VIAL IV SCH ×2 (05:01→11:59)
[2018-04-09 05:50] LABS: Basophils # (Auto) 0.1 K/mcL (0.0-0.3); Basophils % (Auto) 0.6 % (0.0-2.0); Eosinophils # (Auto) 0.3 K/mcL (0.0-0.7); Eosinophils % (Auto) 3.1 % (0.0-7.0); Granulocytes % (Auto) 61.9 % (38.0-78.0); Lymphocytes % (Auto) 23.1 % (15.5-49.0); Mean Cell Volume 91.7 fL (80.0-100.0); Mean Corpuscular Hemoglobin 32.1 pg (26.0-34.0); Monocytes % (Auto) 11.3 % (1.0-12.0); Platelet Count 189 K/mcL (140-440); RBC 4.41 M/mcL (4.50-5.90); Red Cell Distribution Width 12.1 % (11.5-14.5)
[2018-04-09 06:08] LABS: ALT/SGPT 18 U/l (0-40); Albumin 3.6 gm/dL (3.2-5.2); Albumin/Globulin Ratio 1.8 (1.0-2.3); Alkaline Phosphatase 75 U/L (39-117); Bilirubin,Direct < 0.2 mg/dL (0.0-0.3); Blood Urea Nitrogen 6 mg/dl (6-20); Gamma Glutamyl Transpeptidase 17 U/L (8-61); Uric Acid 7.5 mg/dL (2.5-8.0)
[2018-04-09] MEDS: PANTOPRAZOLE 40 MG VIAL IV SCH (06:56)
[2018-04-09] MEDS ORDERED: POTASSIUM CHLORIDE 20 MEQ TABLET PO ONE (07:32)
[2018-04-09] MEDS ORDERED: predniSONE 10 MG TABLET PO SCH (08:00)
[2018-04-09] MEDS ORDERED: MONTELUKAST 10 MG TABLET PO SCH (09:00)
[2018-04-09] MEDS ORDERED: buPROPion 100 MG TAB.SR.12H PO SCH (09:00)
--- NOTE | 2018-04-09 09:12 | XRay Report ---
HISTORY: Follow-up small bowel obstruction FINDINGS: Most of the Gastrografin contrast which the patient drank yesterday has cleared from the bowel. There is a small amount residual contrast in nondistended colon. There are still distended segments of small intestine which measure up to 4.6 mm. There are several air-fluid levels in both large and small intestine. No free intra-abdominal air is present. IMPRESSION: Improving incomplete small bowel obstruction Interpreted and Authenticated by: Wilner Freedman 04/09/18
[2018-04-09] MEDS: NEFAZODONE HCL PO SCH ×2 (09:20→14:18)
[2018-04-09] MEDS: THEOPHYLLINE ANHYDROUS 400 MG TAB.XL.24H PO SCH ×2 (09:20→14:18)
[2018-04-09] MEDS: ERTAPENEM 1 GM in 0.9 % SODIUM CHLORIDE 50 ML IV SCH (09:21)
[2018-04-09] MEDS: 0.9 % SODIUM CHLORIDE 1,000 ML IV SCH ×2 (09:21)
[2018-04-09] MEDS: ENOXAPARIN 40 MG/0.4 ML SYRINGE SQ SCH (09:21)
[2018-04-09] MEDS: IPRATROPIUM/ALBUTEROL SULFATE 1 PUFF INHALER INH SCH ×2 (09:30→14:25)
--- NOTE | 2018-04-09 14:09 | Discharge Summary ---
Providers - Providers Patient information: Note initiated : 04/09/18 at 2:05 pm Service Date, if different from initiated Date: [] Patient: Scott Bright 57 y/o M admitted on 04/07/18 for Small Bowel Obstruction. Chief Complaint: [] Date of admission: 04/07/18 Discharge date: 04/09/18 Attending physician: Priya Paul Hospitalization Hospital course: 57-year-old male who was admitted on 07 April with complaints of recurrent nausea and abdominal pain followed by vomiting. He was symptomatic for at least 5 days prior to being seen in the emergency room.. CT scan suggested partial small bowel obstruction. He has had multiple complete partial small bowel obstructions in the past and has had 3 operative procedures for adhesiolysis or small bowel resection. He has not been seen for over a year. He states that during this time he had been asymptomatic. He denies having flatus or bowel movement for about 5 days prior to coming to the emergency room. When I reviewed his CT there was gas in the colon extending to the rectum and it was felt that he had a partial small bowel obstruction rather than complete. A small bowel follow-through was done and this showed transit through the small bowel into the colon at 2 hours with bowel through the colon at 2-1/2 hours. This was followed by multiple liquid bowel movements and large volume of flatus. He had no difficulty with diet as tolerated this without problems. He had 2 bowel movements today and is asymptomatic.. He had an episode of nausea earlier this morning but that has subsequently resolved.. Patient is stable and can be discharged home. Discharge diagnosis: partial small bowel obstruction Secondary discharge diagnosis: Idiopathic anaphylaxis Chronic asthma Chronic low back pain Reason for admission: abdominal pain with nausea and vomiting Procedures: Then Pertinent studies/significant findings: CT of abdomen and pelvis with contrast Small bowel follow-through Complications: None Exam Temp Pulse Resp BP Pulse Ox 97.9 F 52 L 14 113/77 95 04/09/18 11:34 04/09/18 11:34 04/09/18 11:34 04/09/18 11:34 04/09/18 11:34 - General physical appearance well developed, well nourished, no distress - Eyes PERRL, normal ocular movement - ENT normal pinna, normal nares, normal mucosa, no hearing loss, no congestion - Head Head exam IM: Present: atraumatic, normocephalic - Neck no masses, no bruits, trachea midline, no lymphadectomy, no venous distension - Cardiovascular Cardiovascular exam IM: Present: normal rate and rhythm - Respiratory normal expansion, normal respiratory effort, clear to percussion, clear to auscultation - Abdomen Abdomen: Present: soft, non tender, bowel sounds, distended (mild distention but abdomen is primarily soft with normal active bowel sounds) Hernia: Present: none - Genitourinary Present: normal penis with no external lesions - Integumentary Present: no rash, no growths, no abnormal pigmentation - Neurologic Present: normal coordination, normal sensation - Musculoskeletal Present: normal gait, normal posture - Psychiatric Present: oriented to time, oriented to person, oriented to place, speech is normal, memory intact Discharge Plan - Patient/Caregiver Discharge Instructions Activity: increase activity as tolerated Diet: Regular Diet - Follow up Plan Follow up with: Ken Mena DO [Primary Care Provider] - Disposition: Home, Self-Care Prognosis: Good Rehab Potential: Good I certify that the patient requires SNF services.: No Overall status at discharge: patient is back to baseline Pending Studies Resuscitation Status Full Code Diet Full Liquid Diet Start SatApr 08 1227 Albuterol/Ipratropium (Combivent) 2 puff INH QID [facility] Last Admin: 04/09/18 09:30 Dose: 2 puff Admin: 04/08/18 21:55 Dose: 2 puff Admin: 04/08/18 16:44 Dose: Not Given Admin: 04/08/18 14:36 Dose: Not Given Bupropion HCl (Wellbutrin Sr) 100 mg PO DAILY [facility] Last Admin: 04/09/18 09:20 Dose: 100 mg Enoxaparin Sodium (Lovenox) 40 mg SQ DAILY [facility] Last Admin: 04/09/18 09:21 Dose: 40 mg Admin: 04/08/18 09:55 Dose: 40 mg Hydromorphone HCl (Dilaudid) 1 mg IV Q2HP PRN PRN Reason: PAIN LEVEL > 6 Last Admin: 04/09/18 09:27 Dose: 1 mg Admin: 04/09/18 04:59 Dose: 1 mg Admin: 04/08/18 22:06 Dose: 1 mg Admin: 04/08/18 18:02 Dose: 1 mg Admin: 04/08/18 11:39 Dose: 1 mg Admin: 04/08/18 06:07 Dose: 1 mg Admin: 04/07/18 23:28 Dose: 1 mg Admin: 04/07/18 19:41 Dose: 1 mg Ertapenem 1 gm/ Sodium (Chloride) 50 mls @ 100 mls/hr IV Q24H BRAD Last Infusion: 04/09/18 12:01 Dose: 0 mls/hr Admin: 04/09/18 09:21 Dose: 100 mls/hr Infusion: 04/08/18 10:25 Dose: 0 mls/hr Admin: 04/08/18 09:55 Dose: 100 mls/hr Infusion: 04/07/18 18:23 Dose: 0 mls/hr Admin: 04/07/18 17:47 Dose: 100 mls/hr Sodium Chloride (Sodium Chloride 0.9%) 1,000 mls @ 125 mls/hr IV .Q8H BRAD Last Admin: 04/09/18 09:21 Dose: 125 mls/hr Infusion: 04/09/18 08:00 Dose: 125 mls/hr Admin: 04/09/18 00:00 Dose: 125 mls/hr Infusion: 04/08/18 23:56 Dose: 125 mls/hr Admin: 04/08/18 15:56 Dose: 125 mls/hr Infusion: 04/08/18 13:25 Dose: 125 mls/hr Admin: 04/08/18 10:01 Dose: Not Given Admin: 04/08/18 05:25 Dose: 125 mls/hr Infusion: 04/08/18 05:25 Dose: 125 mls/hr Admin: 04/08/18 01:06 Dose: Not Given Admin: 04/07/18 21:35 Dose: 125 mls/hr Infusion: 04/07/18 21:31 Dose: 0 mls/hr Admin: 04/07/18 17:50 Dose: 125 mls/hr Metoclopramide HCl (Reglan) 10 mg IV Q6 BRAD Last Admin: 04/09/18 11:59 Dose: 10 mg Admin: 04/09/18 05:01 Dose: 10 mg Admin: 04/08/18 23:04 Dose: 10 mg Admin: 04/08/18 17:48 Dose: 10 mg Admin: 04/08/18 11:31 Dose: 10 mg Admin: 04/08/18 05:25 Dose: 10 mg Admin: 04/07/18 23:28 Dose: 10 mg Admin: 04/07/18 19:21 Dose: 10 mg Montelukast Sodium (Singular) 10 mg PO DAILY [facility] Last Admin: 04/09/18 09:20 Dose: 10 mg Pantoprazole Sodium (Protonix) 40 mg IV BIDAC [facility] Last Admin: 04/09/18 06:56 Dose: 40 mg Admin: 04/08/18 17:48 Dose: 40 mg Admin: 04/08/18 07:16 Dose: 40 mg Nefazodone Hcl 300 (Mg Tab) 1 dose PO BID@0900,1400 [facility] Last Admin: 04/09/18 09:20 Dose: 1 dose Admin: 04/08/18 16:39 Dose: Not Given Prednisone (Prednisone) 10 mg PO [facility] Last Admin: 04/09/18 08:03 Dose: 10 mg Sodium Chloride (Saline Flush) 10 ml IV Q8 [facility] Last Admin: 04/09/18 05:01 Dose: Not Given Admin: 04/08/18 21:53 Dose: Not Given Admin: 04/08/18 14:36 Dose: Not Given Admin: 04/08/18 04:57 Dose: Not Given Admin: 04/07/18 20:51 Dose: Not Given Theophylline (Uniphyll) 400 mg PO BID@0900,1400 [facility] Last Admin: 04/09/18 09:20 Dose: 400 mg Admin: 04/08/18 14:40 Dose: 400 mg Zolpidem Tartrate (Ambien) 10 mg PO [facility] Last Admin: 04/08/18 21:52 Dose: 10 mg Shift Summary 04/09/18 04:43 Shift Summary by Jessica Tavarez&Ox4. VSS on RA. Up independently in room. Full liquid diet. Patient had 1 BM this shift. Scheduled for abdominal X-ray this morning. Patient rated 2/10 abdominal pain this shift. Medicated with Dilaudid IV x1 for 7/10 back pain. 20 gauge to LAC with NS at 125 ml/hr. Will update at bedside. Initialized on 04/09/18 04:43 - END OF NOTE
--- NOTE | 2018-04-11 11:01 | XRay Report ---
HISTORY: small bowel obstruction FINDINGS: Str[employer] Operator film of the abdomen reveals air in nondilated colon and air in a few loops of dilated small bowel in the left mid abdomen. The small bowel loops measure up to 5 cm in diameter. Patient was given a cup of diluted Gastrografin contrast to drink. Serial images were obtained following the contrast pass through stomach and small bowel into the colon. Delayed fluoroscopic images were obtained. The contrast passed into the ascending colon at 2 1/2 hours. There is dilatation of the small intestine. The proximal small bowel is more dilated than the ileum. The terminal ileum appears normal. No transition point is identified. There is no evidence of an intraluminal mass. The mucosal folds do not appear to be thickened or inflamed. 45 seconds of fluoroscopy time is used. IMPRESSION: Resolving distal small bowel obstruction. No obstruction point is identified Interpreted and Authenticated by: Wilner Freedman 04/08/18
== END 2018-04-09 15:45 | disposition home or self-care (01) ==
LOC: ED 15:11 → MEDSUR 15:11
PROVIDERS: ADMIT Family Medicine Adult Medicine; ATTEND Family Medicine Adult Medicine

== ENCOUNTER 2022-08-11 15:18 | Inpatient (IN) ==
[2022-08-11] MEDS ORDERED: IOPAMIDOL 100 ML BOTTLE IV ONE (15:19)
--- NOTE | 2022-08-11 15:25 | Emergency Department Note ---
Abdominal Pain HPI General Chief Complaint: Abdominal Pain Stated Complaint: Abd pain Time Seen by Provider: 08/11/22 15:21 Mode of arrival: ambulatory Limitations: no limitations History of Present Illness HPI Narrative: Narrative: Patient is a 61-year-old male who presents to the emergency department today by EMS with complaint of abdominal distention, abdominal pain that started today. He has a history of small bowel obstruction. He feels that the pain is similar to previous small bowel obstruction that he has had. He reports he had some vomiting and diarrhea over the last 2 days and reports his last bowel movement was yesterday. He denies any melena or hematochezia. He has not passed any gas today. He describes aching and sharp pain to the center of his abdomen. He has not had any fevers or chills. He has not had any chest pain, shortness of breath, or difficulty breathing. Related Data Home Medications Medication Instructions Recorded Confirmed albuterol sulfate 90 mcg/actuation 1 - 2 puff PO Q4HP PRN Shortness 05/23/16 08/11/22 aerosol inhaler Of Breath cetirizine 10 mg capsule 10 mg PO DAILY 05/23/16 08/11/22 fexofenadine 180 mg tablet 180 mg PO DAILY 05/23/16 08/11/22 zolpidem 12.5 mg tablet,extended 12.5 mg PO HS 05/23/16 08/11/22 release,multiphase epinephrine 1 mg/mL (1 mL) 0.33 ml SQ PRN PRN Anaphylactic 05/24/16 08/11/22 injection solution Shock hydrocodone 10 mg-acetaminophen 1 tab PO Q4H PRN Pain 05/24/16 08/11/22 325 mg tablet ipratropium 0.5 mg-albuterol 3 mg 3 ml NEB Q4HP PRN sob 05/24/16 08/11/22 (2.5 mg base)/3 mL nebulization soln ipratropium 20 mcg-albuterol 100 2 puff INH QID 05/24/16 08/11/22 mcg/actuation mist for inhalation prednisone 5 mg tablet 10 mg PO DAILY 05/24/16 08/11/22 beclomethasone dipropionate 80 2 inh inhalation BID 06/29/22 08/11/22 mcg/actuation HFA breath activated aerosol (Qvar RediHaler) bupropion HCl 100 mg tablet,12 hr 100 mg PO BID 06/29/22 08/11/22 sustained-release clonidine HCl 0.1 mg tablet 0.1 mg PO TID 06/29/22 08/11/22 escitalopram oxalate 10 mg tablet 10 mg PO QDAY 06/29/22 08/11/22 ipratropium 20 mcg-albuterol 100 1 puff inhalation QID 06/29/22 08/11/22 mcg/actuation mist for inhalation (Combivent Respimat) ipratropium bromide 42 mcg (0.06 See Rx Instructions intranasal QID 06/29/22 07/18/22 %) nasal spray PRN Allergy Symptoms omeprazole 40 mg capsule,delayed 40 mg PO QDAY 06/29/22 08/11/22 release quetiapine 25 mg tablet 50 mg PO QHS 06/29/22 08/11/22 theophylline 400 mg 800 mg PO QDAY 06/29/22 08/11/22 tablet,extended release 24 hr polyethylene glycol 3350 17 4 g PO QDAY 07/10/22 08/11/22 gram/dose oral powder (Miralax) Allergies Allergy/AdvReac Type Severity Reaction Status Date / Time povidone-iodine Allergy Severe Unknown Verified 08/11/22 15:25 [From Betadine] iodine Allergy Mild Hives Verified 08/11/22 15:25 morphine AdvReac Mild Itching Verified 08/11/22 15:25 NUTS Allergy Severe Anaphylaxis Uncoded 07/18/22 16:01 SHELLFISH Allergy Severe Anaphylaxis Uncoded 07/18/22 16:01 Review of Systems ROS ROS Narrative: Narrative: All systems ED: reviewed and negative except as stated. [facility] Narrative Patient History Narrative: Narrative: Medical/Surgical/Family History All Active Problems Small bowel obstruction (Acute) Hypoxia (Chronic) Other obesity due to excess calories (Chronic) History of colon polyps (Chronic) Opioid dependence (Chronic) care home (current) use of systemic steroids (Chronic) Seasonal allergies (Chronic) Personal history of anaphylaxis (Chronic) Chronic use of opiate drug for therapeutic purpose (Chronic) Failed back syndrome (Chronic) Lumbar stenosis with neurogenic claudication (Chronic) Muscle weakness (Chronic) Osteoporosis (Chronic) Bronchitis (Chronic) Dizziness (Chronic) Vertigo (Chronic) Spondylosis without myelopathy or radiculopathy, lumbar region (Chronic) Other low back pain (Chronic) Hearing loss (Chronic) Rapid heart beat (Chronic) Chest pain (Chronic) Migraine (Chronic) Vomiting (Chronic) Small bowel obstruction (Chronic) Adynamic ileus (Chronic) COVID-19 (Chronic) Restless leg syndrome (Chronic) Lumbar radiculopathy (Chronic) JENNA (obstructive sleep apnea) (Chronic) Abdominal pain (Chronic) Cholelithiasis (Chronic) Chronic pain (Chronic) Idiopathic anaphylaxis (Chronic) PTSD (post-traumatic stress disorder) (Chronic) Reactive airway disease (Chronic) COPD (chronic obstructive pulmonary disease) (Chronic) Depression (Chronic) Anxiety (Chronic) GERD (gastroesophageal reflux disease) (Chronic) Insomnia (Chronic) Neuropathy (Chronic) Carpal tunnel syndrome (Chronic) Spinal stenosis (Chronic) Asthma (Chronic) Hyperthyroidism (Chronic) Vitamin D deficiency (Chronic) Nausea (Chronic) Bowel obstruction (Chronic) Chronic asthma not affecting current episode of care (Chronic) Idiopathic anaphylactic reaction (Chronic) Chronic lower back pain (Chronic) Small bowel obstruction due to postoperative adhesions (Chronic) Medical History Abdominal pain Anxiety Asthma Bowel obstruction X3 Bronchitis Carpal tunnel syndrome Chest pain Cholelithiasis Chronic asthma not affecting current episode of care Chronic lower back pain Chronic pain Chronic use of opiate drug for therapeutic purpose COPD (chronic obstructive pulmonary disease) Depression Dizziness Failed back syndrome GERD (gastroesophageal reflux disease) Hearing loss History of colon polyps Hyperthyroidism Hypoxia Idiopathic anaphylactic reaction Idiopathic anaphylaxis Insomnia [employer] (current) use of systemic steroids Lumbar radiculopathy Lumbar stenosis with neurogenic claudication Migraine Muscle weakness Nausea Neuropathy Opioid dependence JENNA (obstructive sleep apnea) Osteoporosis Other low back pain Other obesity due to excess calories Personal history of anaphylaxis PTSD (post-traumatic stress disorder) Rapid heart beat Reactive airway disease Restless leg syndrome Seasonal allergies Small bowel obstruction Small bowel obstruction due to postoperative adhesions Spinal stenosis Spondylosis without myelopathy or radiculopathy, lumbar region Vertigo Vitamin D deficiency Surgical History History of bowel resection History of cholecystectomy (~2016) History of exploratory laparotomy (02/17/17) History of laparoscopic cholecystectomy (12/27/16) History of lumbar spinal fusion L2-L5 History of neck surgery bone spur History of surgery 11/13 SCS Permanent TS 11/27/1311/13 SCS Trial w/sed 11/04/201305/11 LESI #1, L3-4 w/ sed 05/11 SURYA #1 w/sed 05/06/09 History of vasectomy Family History Father Diabetes mellitus, type II Mother Diabetes mellitus, type II Social History Smoking Status: Former smoker Alcohol Intake Frequency: does not drink Substance Use: does not use Exam Narrative Narrative: Narrative: General Limitations: no limitations General appearance: Present alert and grimacing Eye Eye: Present normal appearance; Absent scleral icterus ENT ENT: Present normal oropharynx and mucous membranes moist Chest Chest: Present normal inspection and symmetric chest wall rise; Absent tenderness Respiratory Respiratory: Present normal lung sounds bilaterally; Absent respiratory distress, rales/crackles, wheezes or accessory muscle use Cardiovascular Cardiovascular: Present regular rate, normal rhythm and normal heart sounds Adbominal Abdominal: Present other (Abdomen distended with hypoactive bowel sounds. No mass. No hernia or sign of trauma. There is tenderness with palpation all 4 quadrants.); Absent organomegaly, ascites or pulsatile mass Extremities Extremities: Present normal inspection and full ROM; Absent pedal edema or cyanosis Back Back: Absent CVA tenderness (R) or CVA tenderness (L) Neurological Neurological: Present alert and oriented X3 Psychiatric Psychiatric: Present normal affect and normal mood Skin Skin: Present warm (WNL), dry and normal color Course Vital Signs Vital signs: Vital Signs Temperature 97.9 F 08/11/22 15:20 Pulse Rate 78 08/11/22 15:20 Respiratory Rate 22 08/11/22 15:20 Blood Pressure 142/107 08/11/22 15:20 Pulse Oximetry (%) 96 08/11/22 15:20 Oxygen Delivery Method 08/11/22 15:20 Temperature 98.6 F 08/12/22 16:00 Pulse Rate 75 08/12/22 16:00 Respiratory Rate 16 08/12/22 16:00 Blood Pressure 120/108 08/12/22 16:00 Pulse Oximetry (%) 95 08/12/22 16:00 Oxygen Delivery Method 08/12/22 16:00 Oxygen Flow Rate (L/min) 3 08/12/22 08:00 MDM MDM Narrative Medical decision making narrative: Narrative: Patient is a 61-year-old male who presented to emergency department today by EMS with complaint of abdominal distention and abdominal pain that started today. He has had some vomiting and diarrhea 2 days ago and reports last bowel movement yesterday. He has a history of small bowel obstructions and was indicating that this felt similar to his small bowel obstruction in the past. He was given 1 L normal saline upon arrival with 4 mg of ondansetron for his nausea. Proceeded with a abdomen pelvis CT scan with contrast that shows a recurrent mechanical small bowel obstruction with transition point in the right lower quadrant. Terminal and distal ileum appear normal. No closed-loop obstruction. Patient has had previous small bowel obstruction with surgical colectomy. He does not have colostomy or any acute surgical procedure done. On examination he has some abdominal distention. He was given 15 mg of Toradol IV for pain management. Given his small bowel obstruction we will like to consider admission for this patient. I was able to speak with general surgeon, Dr. Paul today who agrees to accept patient for hospital admission at [facility] as an inpatient for small bowel obstruction. He recommended to place holding orders and have patient n.p.o. and he will begin to see the patient krish mock on the MedSurg floor at [facility]. Lab Data Result diagrams: 08/12/22 05:22 08/12/22 05:22 Labs: Lab Results 08/11/22 08/11/22 08/11/22 Range/Units 15:31 15:42 15:42 WBC 12.2 H (4.5-11.0) K/mcL RBC 6.20 H (4.63-6.08) M/mcL Hgb 18.8 H (13.7-17.5) g/dL Hct 54.3 H (40.1-51.0) % POC Hct 56.0 H (41-55) MCV 87.6 (80.0-100.0) fL MCH 30.3 (26.0-34.0) pg MCHC 34.6 (31.0-36.0) g/dL RDW 12.4 (11.5-14.5) % Plt Count 233 (140-440) K/mcL MPV 10.6 (8.8-12.5) fL Immature Gran % (Auto) 0.5 (0.0-0.5) % Neut % (Auto) 71.0 (38.0-78.0) % Lymph % (Auto) 17.1 (15.5-49.0) % [place] % (Auto) 10.8 (1.0-12.0) % Eos % (Auto) 0.3 (0.0-7.0) % Baso % (Auto) 0.3 (0.0-2.0) % Lymph # (Auto) 2.09 (1.50-4.80) K/mcL [place] # (Auto) 1.32 H (0.10-0.90) K/mcL Eos # (Auto) 0.04 (0.00-0.70) K/mcL Baso # (Auto) 0.04 (0.00-0.30) K/mcL Immature Gran # 0.06 H (0.00-0.05) K/mcl Absolute Neutrophils 8.65 H (1.80-8.00) K/mcL POC Sodium 141 (133-145) POC Potassium 3.6 (3.3-5.1) POC Chloride 103 (96-108) POC Total CO2 24.0 (22-30) POC BUN 15 (6-20) POC Creatinine 0.8 (0.6-1.2) POC Glucose 149 H (70-105) POC WB Ioniz Calcium 1.14 L (1.16-1.32) Total Bilirubin 0.6 (0.1-1.0) mg/dL Direct Bilirubin 0.2 (<0.3) mg/dL AST 23 (<40) U/L ALT 31 (<40) U/L Alkaline Phosphatase 105 (39-117) U/L Total Protein 7.3 (5.9-8.4) gm/dL Albumin 4.2 (3.2-5.2) gm/dL Globulin 3.1 (2.2-3.7) gm/dL Lipase 14 (7-60) U/L Radiology Data Radiology results reviewed: Yes I reviewed the patient's radiology results. Radiology results narrative: Ordering Physician:Arsenio Santo Date of Service:08/11/22 Procedure(s):CT abdomen pelvis w con INDICATION: Abdominal pain COMPARISON: Previous examination dated 04/07/2018 TECHNIQUE: Axial images were obtained through the abdomen and pelvis. Sagittally and coronally reformatted images. 80 mL Isovue 370 injected intravenously. Oral contrast material was not administered FINDINGS: Lung bases:Linear parenchymal density in the right lower lobe consistent with atelectasis. There is no pleural effusion. No pericardial effusion. Liver:Severe hepatic steatosis. No focal mass. Gallbladder, bilary:Surgical clips in the gallbladder fossa. No dilated bile ducts Spleen:No splenomegaly. Normal enhancement of splenic and portal veins. Pancreas:No pancreatic mass. No peripancreatic abnormality Adrenal glands:Negative Kidneys,ureters,bladder:No solid renal mass. No hydronephrosis. No obstructing or nonobstructing calculi. No hydroureter. No ureteral calculus. No bladder stone. No detectable bladder mass. Gastrointestinal:Colon is negative. There is no diverticulitis. No detectable colonic mass Findings consistent with mechanical small bowel obstruction. Small bowel is fluid-filled and distended. Small bowel is dilated to approximately 5.5 cm. Small bowel feces sign in the right lower quadrant probably represents dilated small bowel just proximal to a transition point. Transition point is not well visualized. There is no closed loop obstruction. No evidence for small bowel ischemia. Terminal ileum and distal ileum are normal. Stomach is dilated and fluid-filled Appendix: The appendix is negative Vascular:Negative abdominal aorta. Superior mesenteric artery and celiac trunk are normal. Normal opacification of the inferior mesenteric artery Lymphatic:No retroperitoneal or mesenteric adenopathy Mesentery, peritoneum: No free intraperitoneal fluid. No mesenteric or retroperitoneal mass. No intra-abdominal abscess. Reproductive:Normal Musculoskeletal:Previous lumbar fusion from L2 through L5. No lumbar compression fractures. No abdominal wall or inguinal hernia IMPRESSION: 1. Recurrent mechanical small bowel obstruction with transition point in the right lower quadrant. Terminal and distal ileum appear normal 2. No closed loop obstruction 3. Hepatic steatosis 4. Right lower lobe atelectasis The exam was performed using radiation dose optimization techniques including, but not limited to, automated exposure control, adjustment of the mA and/or kV according to patient size and use of iterative reconstruction technique. Interpreted and Authenticated by: Marcel Mae 08/11/22 Discharge Plan Patient/Caregiver Discharge Instructions Pt seen by SENIOR NET DEVELOPER ARCHITECT/PA only: No Clinical Impression: Small bowel obstruction Patient Disposition: Xfer As Inpt ([facility]) Discharge Date/Time: 08/11/22 18:01
[2022-08-11] MEDS ORDERED: 0.9 % SODIUM CHLORIDE 1,000 ML IV ONE (15:30)
[2022-08-11] MEDS ORDERED: ONDANSETRON 4 MG/2 ML VIAL IV ONE (15:32)
[2022-08-11 15:35] LABS: POC Calcium, Ionized 1.14 (1.16-1.32); POC Creatinine 0.8 (0.6-1.2); POC Potassium 3.6 (3.3-5.1)
[2022-08-11] MEDS ORDERED: KETOROLAC 30 MG/ML VIAL IV ONE (16:00)
--- NOTE | 2022-08-11 16:33 | Cat Scan Report ---
INDICATION: Abdominal pain COMPARISON: Previous examination dated 04/07/2018 TECHNIQUE: Axial images were obtained through the abdomen and pelvis. Sagittally and coronally reformatted images. 80 mL Isovue 370 injected intravenously. Oral contrast material was not administered FINDINGS: Lung bases:Linear parenchymal density in the right lower lobe consistent with atelectasis. There is no pleural effusion. No pericardial effusion. Liver:Severe hepatic steatosis. No focal mass. Gallbladder, bilary:Surgical clips in the gallbladder fossa. No dilated bile ducts Spleen:No splenomegaly. Normal enhancement of splenic and portal veins. Pancreas:No pancreatic mass. No peripancreatic abnormality Adrenal glands:Negative Kidneys,ureters,bladder:No solid renal mass. No hydronephrosis. No obstructing or nonobstructing calculi. No hydroureter. No ureteral calculus. No bladder stone. No detectable bladder mass. Gastrointestinal:Colon is negative. There is no diverticulitis. No detectable colonic mass Findings consistent with mechanical small bowel obstruction. Small bowel is fluid-filled and distended. Small bowel is dilated to approximately 5.5 cm. Small bowel feces sign in the right lower quadrant probably represents dilated small bowel just proximal to a transition point. Transition point is not well visualized. There is no closed loop obstruction. No evidence for small bowel ischemia. Terminal ileum and distal ileum are normal. Stomach is dilated and fluid-filled Appendix: The appendix is negative Vascular:Negative abdominal aorta. Superior mesenteric artery and celiac trunk are normal. Normal opacification of the inferior mesenteric artery Lymphatic:No retroperitoneal or mesenteric adenopathy Mesentery, peritoneum: No free intraperitoneal fluid. No mesenteric or retroperitoneal mass. No intra-abdominal abscess. Reproductive:Normal Musculoskeletal:Previous lumbar fusion from L2 through L5. No lumbar compression fractures. No abdominal wall or inguinal hernia IMPRESSION: 1. Recurrent mechanical small bowel obstruction with transition point in the right lower quadrant. Terminal and distal ileum appear normal 2. No closed loop obstruction 3. Hepatic steatosis 4. Right lower lobe atelectasis The exam was performed using radiation dose optimization techniques including, but not limited to, automated exposure control, adjustment of the mA and/or kV according to patient size and use of iterative reconstruction technique. Interpreted and Authenticated by: Marcel Mae 08/11/22
[2022-08-11 17:15] LABS: Basophils # (Auto) 0.04 K/mcL (0.00-0.30); Basophils % (Auto) 0.3 % (0.0-2.0); Eosinophils # (Auto) 0.04 K/mcL (0.00-0.70); Eosinophils % (Auto) 0.3 % (0.0-7.0); Hematocrit 54.3 % (40.1-51.0); Hemoglobin 18.8 g/dL (13.7-17.5); Lymphocytes # (Auto) 2.09 K/mcL (1.50-4.80); Lymphocytes % (Auto) 17.1 % (15.5-49.0); Mean Cell Volume 87.6 fL (80.0-100.0); Mean Corpuscular HGB Conc 34.6 g/dL (31.0-36.0); Mean Platelet Volume 10.6 fL (8.8-12.5); Monocytes # (Auto) 1.32 K/mcL (0.10-0.90); Monocytes % (Auto) 10.8 % (1.0-12.0); Platelet Count 233 K/mcL (140-440); Red Cell Distribution Width 12.4 % (11.5-14.5); WBC 12.2 K/mcL (4.5-11.0)
[2022-08-11] MEDS ORDERED: 0.9 % SODIUM CHLORIDE 1,000 ML IV SCH (17:30)
[2022-08-11 17:43] LABS: ALT/SGPT 31 U/L (<40); AST/SGOT 23 U/L (<40); Albumin 4.2 gm/dL (3.2-5.2); Alkaline Phosphatase 105 U/L (39-117); Bilirubin,Direct 0.2 mg/dL (<0.3); Bilirubin,Total 0.6 mg/dL (0.1-1.0); Globulin 3.1 gm/dL (2.2-3.7)
[2022-08-11] MEDS: HYDROmorphone 0.5 MG/0.5 ML SYRINGE IV PRN ×4 (17:46→23:46)
[2022-08-11] MEDS ORDERED: ONDANSETRON 4 MG/2 ML VIAL IV PRN (19:35)
[2022-08-11] MEDS ORDERED: ALBUTEROL SULFATE 60 PUFF INHALER INH PRN (19:44)
--- NOTE | 2022-08-11 20:00 | General Surg History&Physical ---
HPI History of Present Illness Patient information: Note initiated : 08/11/22 at 7:47 pm Service Date, if different from initiated Date: [] Patient: Scott Bright a 61 y/o M admitted on 08/11/22 for Abd pain. Chief Complaint: [] Chief complaint: Partial small bowel obstruction History of present illness: Mr. Bright is a 61 year old M admitted for small bowel obstruction or severe ileus made worse by chronic narcotic use. The patient has a long history of a chronic narcotic use with multiple episodes of narcotic induced constipation and ileus. He states that he and his had viral syndrome 2 days ago. He had some nausea vomiting and actually had diarrhea up until yesterday. He has not passed gas or had a bowel movement in the past 24 hours. He complains of a constant nausea, recurrent reflux symptoms and crampy abdominal pain. He has had multiple operations in the past dating back to 2015. 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 His last admission to this facility was in April 2018. He had narcotic induced adynamic ileus with obstructive symptoms which was treated nonoperatively. He does not appear to be toxic and there is no evidence of infection at this time. Patient will be given a trial of nonoperative management. Constitutional Constitutional: Present fatigue, malaise and snoring EENT Eyes: Absent loss of vision Ears: Absent decreased hearing or tinnitus Nose, mouth and throat: Present nasal congestion and post-nasal drip; Absent hoarseness Cardiovascular Cardiovascular: Present dyspnea on exertion; Absent chest pain or paroxysmal nocturnal dyspnea Respiratory Respiratory: Present cough, dyspnea, dyspnea on exertion and wheezing Gastrointestinal Gastrointestinal: Present abdominal pain, bloating, change in stool character, cramping, nausea and vomiting Musculoskeletal Musculoskeletal: Absent abnormal gait, muscle weakness or myalgias Integumentary Integumentary: Absent changing lesions, skin ulcer or swelling Neurological Neurological: Absent abnormal gait, convulsions, dizziness, focal weakness, numbness, syncope or vertigo Psychiatric Psychiatric: Absent confusion, memory loss or mood swings Endocrine Endocrine: Present as per HPI Hematologic/Lymphatic Hematologic/Lymphatic: Absent easy bleeding, easy bruising or lymphadenopathy Allergic/Immunologic Allergic/Immunologic: Absent tongue swelling, throat swelling, itchy eyes, uticaria, wheezing or lip swelling PFSH PFSH All Active Problems Small bowel obstruction (Acute) Hypoxia (Chronic) Other obesity due to excess calories (Chronic) History of colon polyps (Chronic) Opioid dependence (Chronic) [facility] (current) use of systemic steroids (Chronic) Seasonal allergies (Chronic) Personal history of anaphylaxis (Chronic) Chronic use of opiate drug for therapeutic purpose (Chronic) Failed back syndrome (Chronic) Lumbar stenosis with neurogenic claudication (Chronic) Muscle weakness (Chronic) Osteoporosis (Chronic) Bronchitis (Chronic) Dizziness (Chronic) Vertigo (Chronic) Spondylosis without myelopathy or radiculopathy, lumbar region (Chronic) Other low back pain (Chronic) Hearing loss (Chronic) Rapid heart beat (Chronic) Chest pain (Chronic) Migraine (Chronic) Vomiting (Chronic) Small bowel obstruction (Chronic) Adynamic ileus (Chronic) COVID-19 (Chronic) Restless leg syndrome (Chronic) Lumbar radiculopathy (Chronic) JENNA (obstructive sleep apnea) (Chronic) Abdominal pain (Chronic) Cholelithiasis (Chronic) Chronic pain (Chronic) Idiopathic anaphylaxis (Chronic) PTSD (post-traumatic stress disorder) (Chronic) Reactive airway disease (Chronic) COPD (chronic obstructive pulmonary disease) (Chronic) Depression (Chronic) Anxiety (Chronic) GERD (gastroesophageal reflux disease) (Chronic) Insomnia (Chronic) Neuropathy (Chronic) Carpal tunnel syndrome (Chronic) Spinal stenosis (Chronic) Asthma (Chronic) Hyperthyroidism (Chronic) Vitamin D deficiency (Chronic) Nausea (Chronic) Bowel obstruction (Chronic) Chronic asthma not affecting current episode of care (Chronic) Idiopathic anaphylactic reaction (Chronic) Chronic lower back pain (Chronic) Small bowel obstruction due to postoperative adhesions (Chronic) Medical History Abdominal pain Anxiety Asthma Bowel obstruction X3 Bronchitis Carpal tunnel syndrome Chest pain Cholelithiasis Chronic asthma not affecting current episode of care Chronic lower back pain Chronic pain Chronic use of opiate drug for therapeutic purpose COPD (chronic obstructive pulmonary disease) Depression Dizziness Failed back syndrome GERD (gastroesophageal reflux disease) Hearing loss History of colon polyps Hyperthyroidism Hypoxia Idiopathic anaphylactic reaction Idiopathic anaphylaxis Insomnia [facility] (current) use of systemic steroids Lumbar radiculopathy Lumbar stenosis with neurogenic claudication Migraine Muscle weakness Nausea Neuropathy Opioid dependence JENNA (obstructive sleep apnea) Osteoporosis Other low back pain Other obesity due to excess calories Personal history of anaphylaxis PTSD (post-traumatic stress disorder) Rapid heart beat Reactive airway disease Restless leg syndrome Seasonal allergies Small bowel obstruction Small bowel obstruction due to postoperative adhesions Spinal stenosis Spondylosis without myelopathy or radiculopathy, lumbar region Vertigo Vitamin D deficiency Surgical History History of bowel resection History of cholecystectomy (~2016) History of exploratory laparotomy (02/17/17) History of laparoscopic cholecystectomy (12/27/16) History of lumbar spinal fusion L2-L5 History of neck surgery bone spur History of surgery 11/13 [facility] Permanent [facility] 11/27/1311/13 [facility] Trial w/sed 11/04/201305/11 LESI #1, L3-4 w/ sed 05/11 SURYA #1 w/sed 05/06/09 History of vasectomy Family History Father Diabetes mellitus, type II Mother Diabetes mellitus, type II Social History marital status: education level: college occupational status: retired and disabled occupation: [employer] physical activity: none smoking status: Former smoker quit date: 09/02/95 pack-years: 12 alcohol intake frequency: does not drink substance use type: does not use MEDS/ALLERGIES Home Medications and Allergies Home Medications Medication Instructions Recorded Confirmed Type albuterol sulfate 90 mcg/actuation 1 - 2 puff PO Q4HP PRN Shortness 05/23/16 08/11/22 History aerosol inhaler Of Breath cetirizine 10 mg capsule 10 mg PO DAILY 05/23/16 08/11/22 History fexofenadine 180 mg tablet 180 mg PO DAILY 05/23/16 08/11/22 History zolpidem 12.5 mg tablet,extended 12.5 mg PO HS 05/23/16 08/11/22 History release,multiphase epinephrine 1 mg/mL (1 mL) 0.33 ml SQ PRN PRN Anaphylactic 05/24/16 08/11/22 History injection solution Shock hydrocodone 10 mg-acetaminophen 1 tab PO Q4H PRN Pain 05/24/16 08/11/22 History 325 mg tablet ipratropium 0.5 mg-albuterol 3 mg 3 ml NEB Q4HP PRN sob 05/24/16 08/11/22 History (2.5 mg base)/3 mL nebulization soln ipratropium 20 mcg-albuterol 100 2 puff INH QID 05/24/16 08/11/22 History mcg/actuation mist for inhalation prednisone 5 mg tablet 10 mg PO DAILY 05/24/16 08/11/22 History beclomethasone dipropionate 80 2 inh inhalation BID 06/29/22 08/11/22 History mcg/actuation HFA breath activated aerosol (Qvar RediHaler) bupropion HCl 100 mg tablet,12 hr 100 mg PO BID 06/29/22 08/11/22 History sustained-release clonidine HCl 0.1 mg tablet 0.1 mg PO TID 06/29/22 08/11/22 History escitalopram oxalate 10 mg tablet 10 mg PO QDAY 06/29/22 08/11/22 History ipratropium 20 mcg-albuterol 100 1 puff inhalation QID 06/29/22 08/11/22 History mcg/actuation mist for inhalation (Combivent Respimat) ipratropium bromide 42 mcg (0.06 See Rx Instructions intranasal QID 06/29/22 07/18/22 History %) nasal spray PRN omeprazole 40 mg capsule,delayed 40 mg PO QDAY 06/29/22 08/11/22 History release quetiapine 25 mg tablet 50 mg PO QHS 06/29/22 08/11/22 History theophylline 400 mg 800 mg PO QDAY 06/29/22 08/11/22 History tablet,extended release 24 hr diphenhydramine HCl [Benadryl] PO PRN anaphylaxis 07/10/22 07/18/22 History polyethylene glycol 3350 17 4 g PO QDAY 07/10/22 08/11/22 History gram/dose oral powder (Miralax) Allergies Allergy/AdvReac Type Severity Reaction Status Date / Time povidone-iodine Allergy Severe Unknown Verified 08/11/22 15:25 [From Betadine] iodine Allergy Mild Hives Verified 08/11/22 15:25 morphine AdvReac Mild Itching Verified 08/11/22 15:25 NUTS Allergy Severe Anaphylaxis Uncoded 07/18/22 16:01 SHELLFISH Allergy Severe Anaphylaxis Uncoded 07/18/22 16:01 Physical Examination Vital Signs Vital signs: Temp Pulse Resp BP Pulse Ox O2 Del Method 98.4 F 70 16 145/94 97 08/11/22 18:15 08/11/22 18:15 08/11/22 18:15 08/11/22 18:15 08/11/22 18:15 08/11/22 18:15 General physical appearance General physical exam: moderate distress, moderate pain and obese Eyes Eye exam: PERRL and normal ocular movement ENT ENT exam: normal mucosa and no congestion; negative mucosal exudate Head Head exam IM: Present atraumatic, normal inspection and normocephalic Neck Neck exam: no masses, no bruits, trachea midline, no lymphadenopathy and no venous distension Cardiovascular Cardiovascular exam IM: Present normal rate and rhythm, RRR, +S1 and +S2; Absent JVD Respiratory Respiratory exam: normal expansion, normal respiratory effort and clear to auscultation Abdomen Abdomen: Present tender (Diffuse tenderness throughout), bowel sounds (Hypoactive bowel sounds), surgical scars (Well-healed midline surgical scar) and distended (Diffuse distention with tympany) Integumentary Integumentary: Present no rash, no growths and no abnormal pigmentation Neurologic Neurologic: Present normal coordination and normal sensation Musculoskeletal Musculoskeletal: Present normal gait and normal posture Psychiatric Psychiatric: Present oriented to time, oriented to person, oriented to place, sp eech is normal, memory intact and other Results Labs Result diagrams: 08/11/22 15:42 Labs: Abnormal lab results 08/11/22 08/11/22 Range/Units 15:31 15:42 WBC 12.2 H (4.5-11.0) K/mcL RBC 6.20 H (4.63-6.08) M/mcL Hgb 18.8 H (13.7-17.5) g/dL Hct 54.3 H (40.1-51.0) % POC Hct 56.0 H (41-55) Lawrence # (Auto) 1.32 H (0.10-0.90) K/mcL Immature Gran # 0.06 H (0.00-0.05) K/mcl Absolute Neutrophils 8.65 H (1.80-8.00) K/mcL POC Glucose 149 H (70-105) POC WB Ioniz Calcium 1.14 L (1.16-1.32) Diabetes panel 08/11/22 Range/Units 15:42 AST 23 (<40) U/L ALT 31 (<40) U/L Alkaline Phosphatase 105 (39-117) U/L Total Protein 7.3 (5.9-8.4) gm/dL Albumin 4.2 (3.2-5.2) gm/dL Calcium panel 08/11/22 Range/Units 15:42 Albumin 4.2 (3.2-5.2) gm/dL Adrenal panel 08/11/22 Range/Units 15:42 Total Bilirubin 0.6 (0.1-1.0) mg/dL AST 23 (<40) U/L ALT 31 (<40) U/L Alkaline Phosphatase 105 (39-117) U/L Total Protein 7.3 (5.9-8.4) gm/dL Albumin 4.2 (3.2-5.2) gm/dL All other labs normal. 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 (3) Personal history of anaphylaxis: Status: Chronic (4) Chronic use of opiate drug for therapeutic purpose: Status: Chronic (5) Adynamic ileus: Status: Chronic (6) COPD (chronic obstructive pulmonary disease): Status: Chronic Plan NG tube moderate intermittent suction RELISTOR 12 mg subcu daily Metoclopramide 10 mg IV every 6 hours Continue with narcotic analgesics IV for pain control 2 view abdominal x-ray in the morning Solu-Medrol IV every 12 hours until prednisone can be restarted Sepsis Sepsis Identified: No Time Spent With Patient Time: Total time spent is greater than 50% in coordination of care (as documented) at patient's floor/unit and/or counseling patient:
[2022-08-11] MEDS: 0.9 % SODIUM CHLORIDE 1,000 ML IV SCH (20:27)
[2022-08-11] MEDS ORDERED: IPRATROPIUM ALBUTEROL INH SCH (21:00)
[2022-08-11] MEDS ORDERED: methylPREDNISolone SOD SUCC 40 MG/ML VIAL IV ONE ×2 (21:52→21:57)
[2022-08-11] MEDS: METHYLNALTREXONE BROMIDE 12 MG/0.6 ML SYRINGE SQ SCH (21:54)
[2022-08-11] MEDS: BECLOMETHASONE DIPROPIONATE INH SCH (21:55)
[2022-08-11] MEDS: Ipratropium-Albuterol [Combivent Respimat] 20-100 INH SCH (21:59)
[2022-08-11] MEDS: 0.9 % SODIUM CHLORIDE 10 ML SYRINGE IV SCH ×2 (22:01→22:02)
[2022-08-11] MEDS: methylPREDNISolone SOD SUCC 125 MG/2 ML VIAL IV SCH (22:01)
[2022-08-11] MEDS: cloNIDine HCL 0.1 MG TABLET PO SCH (22:02)
[2022-08-11] MEDS: ONDANSETRON 4 MG/2 ML VIAL IV PRN (23:46)
[2022-08-11] MEDS: METOCLOPRAMIDE 10 MG/2 ML VIAL IV SCH (23:52)
[2022-08-12] MEDS: HYDROmorphone 0.5 MG/0.5 ML SYRINGE IV PRN ×8 (02:06→22:26)
[2022-08-12] MEDS: 0.9 % SODIUM CHLORIDE 1,000 ML IV SCH ×4 (04:35→20:49)
--- NOTE | 2022-08-12 05:53 | XRay Report ---
INDICATION: confirm NG placement TECHNIQUE: Supine abdomen. COMPARISON: Previous CT scan dated 08/11/2022 FINDINGS:CT scan demonstrated recurrent small bowel obstruction. Interval placement of an esophagogastric tube in the left upper quadrant, consistent with intragastric location. Examination was initially interpreted by [facility] IMPRESSION: Esophagogastric tube in the stomach Interpreted and Authenticated by: Marcel Mae 08/12/22
[2022-08-12] MEDS: METOCLOPRAMIDE 10 MG/2 ML VIAL IV SCH ×3 (06:05→17:38)
[2022-08-12] MEDS: 0.9 % SODIUM CHLORIDE 10 ML SYRINGE IV SCH ×5 (06:07→22:26)
[2022-08-12 07:09] LABS: Basophils # (Auto) 0.01 K/mcL (0.00-0.30); Basophils % (Auto) 0.1 % (0.0-2.0); Eosinophils # (Auto) 0 K/mcL (0.00-0.70); Eosinophils % (Auto) 0 % (0.0-7.0); Hemoglobin 16.9 g/dL (13.7-17.5); Lymphocytes # (Auto) 0.84 K/mcL (1.50-4.80); Mean Cell Volume 89.1 fL (80.0-100.0); Mean Corpuscular HGB Conc 34.5 g/dL (31.0-36.0); Mean Platelet Volume 10.5 fL (8.8-12.5); Monocytes # (Auto) 0.23 K/mcL (0.10-0.90); Monocytes % (Auto) 1.9 % (1.0-12.0); Neutrophils % (Auto) 90.5 % (38.0-78.0); Platelet Count 225 K/mcL (140-440); Red Cell Distribution Width 12.4 % (11.5-14.5)
[2022-08-12 07:43] LABS: ALT/SGPT 27 U/L (<40); AST/SGOT 20 U/L (<40); Albumin 3.4 gm/dL (3.2-5.2); Albumin/Globulin Ratio 1.1 (1.0-2.3); Alkaline Phosphatase 79 U/L (39-117); Bilirubin,Direct < 0.2 mg/dL (0-0.3); Bilirubin,Total 0.5 mg/dL (0.1-1.0); Blood Urea Nitrogen 14 mg/dL (6-20); Carbon Dioxide 25 mmol/L (22-30); Chloride 102 mmol/L (96-108); Glomerular Filtration Rate 92; Glucose 152 mg/dL (70-105); Lactate Dehydrogenase 184 U/L (135-225); Phosphorous 3.3 mg/dL (2.5-4.5); Triglycerides 69 mg/dL (<150); Uric Acid 10.1 mg/dL (2.5-8.0)
[2022-08-12] MEDS: ONDANSETRON 4 MG/2 ML VIAL IV PRN (08:03)
[2022-08-12] MEDS: methylPREDNISolone SOD SUCC 125 MG/2 ML VIAL IV SCH ×2 (08:51→20:50)
[2022-08-12] MEDS: cloNIDine HCL 0.1 MG TABLET PO SCH ×3 (08:53→20:51)
[2022-08-12] MEDS: Ipratropium-Albuterol [Combivent Respimat] 20-100 INH SCH ×4 (08:58→20:52)
--- NOTE | 2022-08-12 09:15 | XRay Report ---
INDICATION: Small bowel obstruction TECHNIQUE: Supine and upright abdomen. COMPARISON: Previous plain film examination dated 08/11/2022. Previous CT scan dated 08/11/2022 FINDINGS:Persistent dilated gas-filled small bowel. In the right upper quadrant small bowel measures approximately 5 cm in cross-sectional diameter. There is a small amount of colonic gas. No biliary or portal venous gas. There is no pneumoperitoneum. Esophagogastric tube remains in the stomach IMPRESSION: 1. Persistent abnormal bowel gas pattern consistent with small bowel obstruction 2. Follow-up recommended Interpreted and Authenticated by: Marcel Mae 08/12/22
[2022-08-12] MEDS: BECLOMETHASONE DIPROPIONATE INH SCH ×2 (09:25→20:52)
[2022-08-12] MEDS: IPRATROPIUM/ALBUTEROL 3 ML AMPUL.NEB NEB PRN ×2 (11:26→23:09)
--- NOTE | 2022-08-12 11:42 | General Surgery Progress Note ---
SUBJECTIVE Subjective Patient information: Note initiated : 08/12/22 at 11:38 am Service Date, if different from initiated Date: [] Patient: Scott Bright 61 y/o M admitted on 08/11/22 for Abd pain. Chief Complaint: [] Principal diagnosis: Partial small bowel obstruction Interval history: Patient states that he feels better. His abdomen is much softer. He has had about 1800 cc of output since admission. He denies having flatus. He denies nausea. Constitutional Vitals: Vital Signs Temp Pulse Resp BP Pulse Ox O2 Del Method O2 Flow Rate 98.8 F 70 18 143/97 94 3 08/12/22 11:08 08/12/22 11:28 08/12/22 11:28 08/12/22 11:08 08/12/22 11:28 08/12/22 11:28 08/12/22 08:00 Period Temp Pulse Resp BP Sys/Herr Pulse Ox O2 Del Method O2 Flow Rate Last 24 Hr 97.9 F-98.8 F 62-82 - 128-153/73-107 92-97 Nasal Cannula- Room Air 3-3 Intake and Output 08/11/22 08/12/22 08/12/22 19:59 03:59 11:59 Intake Total 1000 1050 Output Total 1350 1300 Balance -350 -250 Weight 249 lb Intake & Output: Intake & Output 08/11/22 08/12/22 08/12/22 19:59 03:59 11:59 Intake Total 1000 1050 Output Total 1350 1300 Balance -350 -250 Weight 249 lb Intake: IV 1000 1000 Sodium Chloride 0.9% 1,000 ml @ 1000 1000 Wide Open IV BOLUS ONE Rx#: [id number] Oral 50 Tube Feeding 0 0 Output: Gastric Drainage 1000 900 Right Nare 1000 900 Void Amount 350 400 Other: Urine Appearance Clear Clear Urine Color Light Haydee Light Haydee ENT ENT exam: Present mucous membranes moist and normal oropharynx Neck Neck exam: Present full ROM and normal inspection Respiratory Respiratory exam: Present normal respiratory exam; Absent rales, rhonchi or wheezes Cardiovascular Cardiovascular exam: Present normal rate and rhythm, RRR, +S1 and +S2; Absent gallop or JVD GI/Abdominal GI/Abdominal exam: Present normal bowel sounds (Active bowel sounds) and distended (Distended but much softer) Extremities Exam Extremities exam: Present normal inspection and neurovascular intact Neurological Exam Neurological exam: Present oriented X3 and reflexes normal; Absent motor sensory deficit Psychiatric Psychiatric exam: Present normal affect and normal mood A/P Assessment and plan (1) Small bowel obstruction: Status: Acute (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
[2022-08-12] MEDS: METHYLNALTREXONE BROMIDE 12 MG/0.6 ML SYRINGE SQ SCH (20:50)
[2022-08-13] MEDS: METOCLOPRAMIDE 10 MG/2 ML VIAL IV SCH ×5 (00:30→23:27)
[2022-08-13] MEDS: HYDROmorphone 0.5 MG/0.5 ML SYRINGE IV PRN ×7 (01:58→23:27)
[2022-08-13] MEDS: 0.9 % SODIUM CHLORIDE 1,000 ML IV SCH ×5 (03:33→23:33)
[2022-08-13] MEDS: 0.9 % SODIUM CHLORIDE 10 ML SYRINGE IV SCH ×3 (07:53→21:33)
[2022-08-13] MEDS: methylPREDNISolone SOD SUCC 125 MG/2 ML VIAL IV SCH ×2 (08:49→21:29)
[2022-08-13] MEDS: Ipratropium-Albuterol [Combivent Respimat] 20-100 INH SCH ×4 (08:51→21:28)
[2022-08-13] MEDS: BECLOMETHASONE DIPROPIONATE INH SCH ×2 (08:52→19:32)
[2022-08-13] MEDS: cloNIDine HCL 0.1 MG TABLET PO SCH ×6 (10:26→21:30)
--- NOTE | 2022-08-13 12:57 | General Surgery Progress Note ---
SUBJECTIVE Subjective Patient information: Note initiated : 08/13/22 at 12:56 pm Service Date, if different from initiated Date: [] Patient: Scott Bright 61 y/o M admitted on 08/11/22 for Abd pain. Chief Complaint: [] Principal diagnosis: Partial small bowel obstruction Interval history: Patient states that he feels much better. He is states that he has not passed gas but his abdomen is significantly softer. He still has large volume nasogastric output. The small bowel follow-through was started earlier this morning and contrast appears to be in the distal small bowel. There is not appear to be any contrast in the colon. He denies nausea with the nasogastric tube clamped Constitutional Vitals: Vital Signs Temp Pulse Resp BP Pulse Ox O2 Del Method O2 Flow Rate 98.1 F 78 16 130/88 96 2.5 08/13/22 10:53 08/13/22 12:01 08/13/22 12:01 08/13/22 10:53 08/13/22 12:01 08/13/22 12:01 08/13/22 12:01 Period Temp Pulse Resp BP Sys/Herr Pulse Ox O2 Del Method O2 Flow Rate Last 24 Hr 98.1 F-98.8 F 57-88 14-18 120-136/84-108 94-96 Nasal Cannula- Room Air 2.5-2.5 Intake and Output 08/13/22 08/13/22 08/13/22 03:59 11:59 19:59 Intake Total 2029 1018 Output Total 1000 300 Balance 1030 718 Intake & Output: Intake & Output 08/13/22 08/13/22 08/13/22 03:59 11:59 19:59 Intake Total 2029 1018 Output Total 1000 300 Balance 1030 718 Intake: IV 1999 1018 Sodium Chloride 0.9% 1,000 ml @ 2000 1018 150 mls/hr IV .Q6H40M [facility] Rx#: [id number] Oral 30 Tube Feeding 0 Output: Gastric Drainage 600 Right Nare 600 Void Amount 400 300 Other: Urine Appearance Clear Clear Urine Color [place] Yellow Eye Eye exam: Present EOMI, normal appearance and PERRL ENT ENT exam: Present normal oropharynx Neck Neck exam: Present full ROM and normal inspection; Absent tenderness Respiratory Respiratory exam: Present normal respiratory exam and CTAB; Absent wheezes Cardiovascular Cardiovascular exam: Present normal rate and rhythm, RRR, +S1 and +S2; Absent JVD GI/Abdominal GI/Abdominal exam: Present normal bowel sounds, soft and distended (Distention is much less tenderness); Absent tenderness (No tenderness noted throughout abdomen) Extremities Exam Extremities exam: Present normal inspection and neurovascular intact A/P Assessment and plan (1) Small bowel obstruction: Status: Acute (2) Opioid dependence: Status: Chronic (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 Based on the slow progress through the small bowel it is probable that he will need operative intervention but will make that decision tomorrow. Time Spent With Patient Time: Total time spent is greater than 50% in coordination of care (as documented) at patient's floor/unit and/or counseling patient:
[2022-08-13] MEDS ORDERED: DIATRIZOATE MEGLU/DIATRIZO SOD 120 ML BOTTLE PO ONE (14:38)
[2022-08-13] MEDS ORDERED: POLYETHYLENE GLYCOL 3350 17 GM PACKET PO SCH (16:00)
--- NOTE | 2022-08-13 18:53 | XRay Report ---
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 Findings are compatible with high-grade partial small bowel obstruction of mid ileum. Delayed film shows a small contrast admitted into the distal ileum. IMPRESSION: Persistent high-grade small bowel obstruction in the mid ileum in the right lower quadrant likely related to adhesions or stricture. Interpreted and Authenticated by: Marcel Fitzpatrick 08/13/22
--- NOTE | 2022-08-13 18:55 | XRay Report ---
CLINICAL INFORMATION: small bowel follow through COMPARISON: None. FINDINGS: Delayed film following NG decompression of the stomach and duodenum shows moderate dilatation of the distal jejunum and ileum. There is a small amount of contrast admitted into the colon. IMPRESSION: High-grade partial mid ileal obstruction Interpreted and Authenticated by: Marcel Fitzpatrick 08/13/22
[2022-08-13] MEDS: ZOLPIDEM 5 MG TABLET PO SCH (21:29)
[2022-08-13] MEDS: buPROPion 100 MG TAB.SR.12H PO SCH (21:31)
[2022-08-13] MEDS: QUEtiapine 25 MG TABLET PO SCH (21:38)
[2022-08-13] MEDS: IPRATROPIUM/ALBUTEROL 3 ML AMPUL.NEB NEB PRN (21:47)
[2022-08-13] MEDS: METHYLNALTREXONE BROMIDE 12 MG/0.6 ML SYRINGE SQ SCH (22:07)
[2022-08-14] MEDS: 0.9 % SODIUM CHLORIDE 10 ML SYRINGE IV SCH ×3 (04:23→22:00)
[2022-08-14] MEDS: METOCLOPRAMIDE 10 MG/2 ML VIAL IV SCH ×4 (05:34→23:23)
[2022-08-14] MEDS: 0.9 % SODIUM CHLORIDE 1,000 ML IV SCH ×4 (06:17→19:47)
[2022-08-14 07:36] LABS: Basophils # (Auto) 0.01 K/mcL (0.00-0.30); Basophils % (Auto) 0.1 % (0.0-2.0); Eosinophils # (Auto) 0 K/mcL (0.00-0.70); Eosinophils % (Auto) 0 % (0.0-7.0); Hematocrit 41.1 % (40.1-51.0); Hemoglobin 13.6 g/dL (13.7-17.5); Lymphocytes # (Auto) 1.25 K/mcL (1.50-4.80); Lymphocytes % (Auto) 11.8 % (15.5-49.0); Mean Cell Volume 92.8 fL (80.0-100.0); Mean Corpuscular HGB Conc 33.1 g/dL (31.0-36.0); Mean Platelet Volume 10.8 fL (8.8-12.5); Monocytes # (Auto) 0.54 K/mcL (0.10-0.90); Monocytes % (Auto) 5.1 % (1.0-12.0); Neutrophils % (Auto) 82.4 % (38.0-78.0); Platelet Count 181 K/mcL (140-440); RBC 4.43 M/mcL (4.63-6.08); Red Cell Distribution Width 12.5 % (11.5-14.5); WBC 10.6 K/mcL (4.5-11.0)
[2022-08-14 07:53] LABS: ALT/SGPT 33 U/L (<40); AST/SGOT 20 U/L (<40); Albumin 3.2 gm/dL (3.2-5.2); Albumin/Globulin Ratio 1.5 (1.0-2.3); Alkaline Phosphatase 56 U/L (39-117); Bilirubin,Direct < 0.2 mg/dL (0-0.3); Bilirubin,Total 0.5 mg/dL (0.1-1.0); Blood Urea Nitrogen 18 mg/dL (6-20); Calcium 8.7 mg/dL (8.6-10.4); Carbon Dioxide 25 mmol/L (22-30); Chloride 107 mmol/L (96-108); Globulin 2.1 gm/dL (2.2-3.7); Glomerular Filtration Rate 102; Glucose 139 mg/dL (70-105); Lactate Dehydrogenase 153 U/L (135-225); Phosphorous 3.5 mg/dL (2.5-4.5); Triglycerides 84 mg/dL (<150); Uric Acid 7.6 mg/dL (2.5-8.0)
[2022-08-14] MEDS ORDERED: PNEUMOCOCCAL 23-VAL P-SAC VAC 0.5 ML SYRINGE IM ONE (09:00)
[2022-08-14] MEDS: HYDROmorphone 0.5 MG/0.5 ML SYRINGE IV PRN ×4 (09:22→21:59)
[2022-08-14] MEDS: cloNIDine HCL 0.1 MG TABLET PO SCH ×3 (09:23→21:58)
[2022-08-14] MEDS: ESCITALOPRAM 10 MG TABLET PO SCH (09:24)
[2022-08-14] MEDS: buPROPion 100 MG TAB.SR.12H PO SCH ×2 (09:24→21:56)
[2022-08-14] MEDS: methylPREDNISolone SOD SUCC 125 MG/2 ML VIAL IV SCH ×2 (09:25→21:54)
[2022-08-14] MEDS: Ipratropium-Albuterol [Combivent Respimat] 20-100 INH SCH ×4 (09:25→21:58)
--- NOTE | 2022-08-14 09:26 | XRay Report ---
CLINICAL INFORMATION: Follow-up of small bowel obstruction COMPARISON: None. FINDINGS: A few loops of small bowel in central abdomen remain moderately dilated but decreased. Enteric contrast, administered for yesterday's small bowel exam is now entirely within the colon which appears normal.. There is no free air, soft tissue mass, organomegaly or pathologic calcification. IMPRESSION: Distal partial small bowel obstruction-improving from yesterday Interpreted and Authenticated by: Marcel Fitzpatrick 08/14/22
[2022-08-14] MEDS: BECLOMETHASONE DIPROPIONATE INH SCH ×2 (11:11→21:55)
--- NOTE | 2022-08-14 12:46 | General Surgery Progress Note ---
SUBJECTIVE Subjective Patient information: Note initiated : 08/14/22 at 12:41 pm Service Date, if different from initiated Date: [] Patient: Scott Bright 61 y/o M admitted on 08/11/22 for Abd pain. Chief Complaint: [] Principal diagnosis: Partial small bowel obstruction Interval history: Patient has continued to have liquid bowel movements since yesterday. He had 5 bowel movements last night and 3 today. Abdominal distention is less. He is complaining about diarrhea but he is advised that he needs to remove all of the liquid from his colon to make sure that he has enough opening in his bowel to advance his diet. White blood count 10.6, hemoglobin 13.6, hematocrit 41.1. Abdominal x-rays shows clearing of contrast from small bowel with remainder of contrast in his large bowel:. Constitutional Vitals: Vital Signs Temp Pulse Resp BP Pulse Ox O2 Del Method O2 Flow Rate 97.5 F 57 L 16 112/71 98 2 08/14/22 07:46 08/14/22 07:46 08/14/22 07:46 08/14/22 07:46 08/14/22 07:46 08/14/22 07:46 08/13/22 21:47 Period Temp Pulse Resp BP Sys/Herr Pulse Ox O2 Del Method O2 Flow Rate Last 24 Hr 97.5 F-98.8 F 50-66 16-20 112-142/71-86 93-98 Room Air-Room Air 2 Intake and Output 08/14/22 08/14/22 08/14/22 03:59 11:59 19:59 Intake Total 1530 1000 Output Total 225 Balance 1305 1000 Intake & Output: Intake & Output 08/14/22 08/14/22 08/14/22 03:59 11:59 19:59 Intake Total 1530 1000 Output Total 225 Balance 1305 1000 Intake: IV 980 1000 Sodium Chloride 0.9% 1,000 ml @ 980 1000 150 mls/hr IV .Q6H40M [facility] Rx#: [id number] Oral 550 Output: Void Amount 225 Other: Urine Appearance Clear Urine Color Yellow Stool Size Small Stool Color Yellow Stool Consistency Liquid Watery Loose # Bowel Movements 1 ENT ENT exam: Present mucous membranes moist and normal oropharynx Neck Neck exam: Present full ROM and normal inspection Respiratory Respiratory exam: Present normal respiratory exam; Absent rales, rhonchi or wheezes Cardiovascular Cardiovascular exam: Present normal rate and rhythm, RRR, +S1 and +S2; Absent gallop or JVD GI/Abdominal GI/Abdominal exam: Present diminished bowel sounds and distended; Absent tenderness Extremities Exam Extremities exam: Present neurovascular intact A/P Assessment and plan (1) Partial small bowel obstruction: Status: Acute (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
[2022-08-14] MEDS: POLYETHYLENE GLYCOL 3350 17 GM PACKET PO SCH ×2 (13:08→23:38)
[2022-08-14] MEDS: THEOPHYLLINE ANHYDROUS 400 MG TAB.XL.24H PO SCH (18:33)
[2022-08-14] MEDS: ZOLPIDEM 5 MG TABLET PO SCH (21:56)
[2022-08-14] MEDS: QUEtiapine 25 MG TABLET PO SCH (21:56)
[2022-08-15] MEDS: HYDROmorphone 0.5 MG/0.5 ML SYRINGE IV PRN ×7 (04:04→21:58)
[2022-08-15] MEDS: 0.9 % SODIUM CHLORIDE 1,000 ML IV SCH ×5 (04:06→17:17)
[2022-08-15] MEDS: 0.9 % SODIUM CHLORIDE 10 ML SYRINGE IV SCH ×3 (04:06→21:51)
[2022-08-15] MEDS: METOCLOPRAMIDE 10 MG/2 ML VIAL IV SCH ×3 (06:19→17:43)
--- NOTE | 2022-08-15 09:08 | XRay Report ---
CLINICAL INFORMATION: Follow-up of small bowel obstruction COMPARISON: 08/14/2022 FINDINGS: A few loops of small bowel in central abdomen remain moderately dilated but decreased from yesterday. Enteric contrast has nearly cleared from the colon with minimal residual the right colon and rectosigmoid.yesterday's small bowel exam is now entirely within the colon which appears normal.. There is no free air, soft tissue mass, organomegaly or pathologic calcification. IMPRESSION: Distal partial small bowel obstruction-continued improvement from yesterday. Interpreted and Authenticated by: Marcel Fitzpatrick 08/15/22
[2022-08-15] MEDS: methylPREDNISolone SOD SUCC 125 MG/2 ML VIAL IV SCH ×2 (09:11→21:52)
[2022-08-15] MEDS: ESCITALOPRAM 10 MG TABLET PO SCH (09:12)
[2022-08-15] MEDS: buPROPion 100 MG TAB.SR.12H PO SCH ×2 (09:12→21:53)
[2022-08-15] MEDS: cloNIDine HCL 0.1 MG TABLET PO SCH ×3 (09:12→21:53)
[2022-08-15] MEDS: Ipratropium-Albuterol [Combivent Respimat] 20-100 INH SCH ×4 (09:12→21:53)
[2022-08-15] MEDS: THEOPHYLLINE ANHYDROUS 400 MG TAB.XL.24H PO SCH ×2 (09:13→15:21)
[2022-08-15] MEDS: BECLOMETHASONE DIPROPIONATE INH SCH ×2 (09:13→21:51)
[2022-08-15] MEDS: POLYETHYLENE GLYCOL 3350 17 GM PACKET PO SCH (13:16)
--- NOTE | 2022-08-15 14:16 | General Surgery Progress Note ---
SUBJECTIVE Subjective Patient information: Note initiated : 08/15/22 at 2:12 pm Service Date, if different from initiated Date: [] Patient: cSott Bright 62 y/o M admitted on 08/11/22 for Abd pain. Chief Complaint: [] Principal diagnosis: Partial small bowel obstruction Interval history: Patient has developed more abdominal distention since last evening. He did not have much passage of flatus and he has not had a bowel movement since yesterday. He complains of more tightness in his abdomen. X-rays shows increased small bowel and colon gas. Discussed with him the possibility that he will need to have laparotomy tomorrow if his clinical picture does not improve. Constitutional Vitals: Vital Signs Temp Pulse Resp BP Pulse Ox O2 Del Method O2 Flow Rate 98.2 F 58 L 16 129/77 96 2.5 08/15/22 12:00 08/15/22 12:00 08/15/22 12:00 08/15/22 12:00 08/15/22 12:00 08/15/22 12:00 08/15/22 06:13 Period Temp Pulse Resp BP Sys/Herr Pulse Ox O2 Del Method O2 Flow Rate Last 24 Hr 97.6 F-98.4 F 47-60 16-16 113-137/73-93 96-99 Nasal Cannula- Room Air 2.5-2.5 Intake and Output 08/15/22 08/15/22 08/15/22 03:59 11:59 19:59 Intake Total 450 1494 480 Output Total 1700 1200 Balance -1250 294 480 Intake & Output: Intake & Output 08/15/22 08/15/22 08/15/22 03:59 11:59 19:59 Intake Total 450 1494 480 Output Total 1700 1200 Balance -1250 294 480 Intake: IV 454 Sodium Chloride 0.9% 1,000 ml @ 454 50 mls/hr IV .Q20H [facility] Rx#: [id number] Oral 450 1040 480 Output: Void Amount 1700 1200 Other: Meal Breakfast Lunch Percent of Meal Consumed 100% 100% Feeding Ability Independent Urine Appearance Clear Clear Urine Color Pale Bright Yellow Urine Odor Normal Normal ENT ENT exam: Present mucous membranes moist and normal oropharynx Neck Neck exam: Present normal inspection Respiratory Respiratory exam: Present normal respiratory exam and CTAB Cardiovascular Cardiovascular exam: Present normal rate and rhythm, RRR, +S1 and +S2; Absent JVD GI/Abdominal GI/Abdominal exam: Present normal bowel sounds and distended Additional comments: Abdomen is significantly distended and tympanitic though he does not have much tenderness Extremities Exam Extremities exam: Present normal inspection and neurovascular intact A/P Assessment and plan (1) MCC (current) use of systemic steroids: Status: Chronic (2) Chronic use of opiate drug for therapeutic purpose: Status: Chronic (3) Adynamic ileus: Status: Chronic (4) JENNA (obstructive sleep apnea): Status: Chronic Plan Patient has not shown any improvement over the past 24 hours Diet is decreased to clear liquids Milk of magnesia x4 doses Check a.m. labs Abdominal x-ray in the morning Patient has been informed that he would probably need laparotomy with adhesiolysis. This decision will be made based on clinical evaluation tomorrow Time Spent With Patient Time: Total time spent is greater than 50% in coordination of care (as documented) at patient's floor/unit and/or counseling patient:
[2022-08-15] MEDS: MAGNESIUM HYDROXIDE 30 ML ORAL.SUSP PO SCH ×3 (14:31→18:36)
[2022-08-15] MEDS: ZOLPIDEM 5 MG TABLET PO SCH (21:53)
[2022-08-15] MEDS: QUEtiapine 25 MG TABLET PO SCH (21:53)
[2022-08-16] MEDS: HYDROmorphone 0.5 MG/0.5 ML SYRINGE IV PRN ×9 (00:05→21:21)
[2022-08-16] MEDS: METOCLOPRAMIDE 10 MG/2 ML VIAL IV SCH ×5 (00:05→17:27)
[2022-08-16] MEDS: POLYETHYLENE GLYCOL 3350 17 GM PACKET PO SCH ×2 (00:05→11:29)
[2022-08-16] MEDS: 0.9 % SODIUM CHLORIDE 1,000 ML IV SCH ×4 (00:11→20:21)
[2022-08-16] MEDS: 0.9 % SODIUM CHLORIDE 10 ML SYRINGE IV SCH ×3 (04:50→21:21)
[2022-08-16 06:33] LABS: Basophils # (Auto) 0.02 K/mcL (0.00-0.30); Basophils % (Auto) 0.2 % (0.0-2.0); Eosinophils # (Auto) 0.01 K/mcL (0.00-0.70); Eosinophils % (Auto) 0.1 % (0.0-7.0); Hematocrit 47.3 % (40.1-51.0); Lymphocytes # (Auto) 0.88 K/mcL (1.50-4.80); Lymphocytes % (Auto) 7.1 % (15.5-49.0); Mean Cell Volume 90.1 fL (80.0-100.0); Mean Corpuscular HGB Conc 33.8 g/dL (31.0-36.0); Monocytes # (Auto) 0.51 K/mcL (0.10-0.90); Monocytes % (Auto) 4.1 % (1.0-12.0); Platelet Count 211 K/mcL (140-440); RBC 5.25 M/mcL (4.63-6.08); Red Cell Distribution Width 12.2 % (11.5-14.5); WBC 12.4 K/mcL (4.5-11.0)
[2022-08-16 06:59] LABS: ALT/SGPT 124 U/L (<40); AST/SGOT 47 U/L (<40); Albumin 3.8 gm/dL (3.2-5.2); Albumin/Globulin Ratio 1.8 (1.0-2.3); Alkaline Phosphatase 68 U/L (39-117); Bilirubin,Direct 0.4 mg/dL (<0.3); Blood Urea Nitrogen 16 mg/dL (8-23); Carbon Dioxide 31 mmol/L (22-30); Chloride 99 mmol/L (96-108); Globulin 2.1 gm/dL (2.2-3.7); Glomerular Filtration Rate 102; Glucose 156 mg/dL (70-105); Lactate Dehydrogenase 194 U/L (135-225); Phosphorous 3.8 mg/dL (2.5-4.5); Triglycerides 93 mg/dL (<150); Uric Acid 7.9 mg/dL (2.5-8.0)
[2022-08-16] MEDS: cloNIDine HCL 0.1 MG TABLET PO SCH ×3 (08:29→21:20)
[2022-08-16] MEDS: ESCITALOPRAM 10 MG TABLET PO SCH (08:29)
[2022-08-16] MEDS: buPROPion 100 MG TAB.SR.12H PO SCH (08:29)
[2022-08-16] MEDS: methylPREDNISolone SOD SUCC 125 MG/2 ML VIAL IV SCH ×2 (08:29→21:20)
[2022-08-16] MEDS: Ipratropium-Albuterol [Combivent Respimat] 20-100 INH SCH ×4 (08:30→21:20)
[2022-08-16] MEDS: THEOPHYLLINE ANHYDROUS 400 MG TAB.XL.24H PO SCH (08:31)
[2022-08-16] MEDS: BECLOMETHASONE DIPROPIONATE INH SCH ×2 (08:33→21:20)
[2022-08-16] MEDS: PIPERACILLIN SODIUM/TAZOBACTAM 3.375 GM in DEXTROSE 5% IN WATER 50 ML IV SCH ×3 (09:23→17:30)
--- NOTE | 2022-08-16 09:43 | XRay Report ---
CLINICAL INFORMATION: Follow-up of small bowel obstruction COMPARISON: 08/14/2022 FINDINGS: Loops of mildly dilated small bowel in the central abdomen with air-fluid levels appreciated. There are also air-fluid levels within nondilated colon. Caliber of the small bowel has decreased from yesterday's exam suggesting mild improvement. There is no free air. IMPRESSION: Distal partial small bowel obstruction-continued improvement from yesterday. Interpreted and Authenticated by: Marcel Fitzpatrick 08/16/22
--- NOTE | 2022-08-16 12:54 | General Surgery Progress Note ---
SUBJECTIVE Subjective Patient information: Note initiated : 08/16/22 at 12:51 pm Service Date, if different from initiated Date: [] Patient: Scott Bright 62 y/o M admitted on 08/11/22 for Abd pain. Chief Complaint: [] Principal diagnosis: Partial small bowel obstruction Interval history: Patient had crampy abdominal pain with the milk of magnesia. He did have passage of flatus and small bowel movement however he continues to have crampy pain and major distention. Abdominal x-rays revealed dilated loops of small bowel in mid abdomen with some gas in his colon but the small bowel dilation is quite prominent. Discussed with him the need to proceed with laparotomy and adhesiolysis. He is agreeable. Constitutional Vitals: Vital Signs Temp Pulse Resp BP Pulse Ox O2 Del Method O2 Flow Rate 97.9 F 61 16 140/89 95 3 08/16/22 07:33 08/16/22 07:33 08/16/22 07:33 08/16/22 03:20 08/16/22 07:33 08/16/22 07:33 08/16/22 03:20 Period Temp Pulse Resp BP Sys/Herr Pulse Ox O2 Del Method O2 Flow Rate Last 24 Hr 97.9 F-98.8 F 58-87 16-16 124-157/55-105 94-97 Nasal Cannula- Room Air 3 Intake and Output 08/16/22 08/16/22 08/16/22 03:59 11:59 19:59 Intake Total 345 50 Output Total 450 725 Balance -105 -675 Intake & Output: Intake & Output 08/16/22 08/16/22 08/16/22 03:59 11:59 19:59 Intake Total 345 50 Output Total 450 725 Balance -105 -675 Intake: IV 345 50 Sodium Chloride 0.9% 1,000 ml @ 345 50 mls/hr IV .Q20H [facility] Rx#: [id number] Zosyn 3.375 gm In Dextrose 5% 50 in Water 50 ml @ 100 mls/hr IV Q6H [facility] Rx#:[id number] Oral 0 Output: Void Amount 450 725 Other: Urine Appearance Clear Clear Urine Color Dark Yellow Dark Yellow Stool Size Moderate Stool Color Yellow Stool Consistency Watery # Bowel Movements 3 ENT ENT exam: Present mucous membranes moist and normal oropharynx Neck Neck exam: Present normal inspection; Absent tenderness Respiratory Respiratory exam: Present normal respiratory exam and CTAB; Absent wheezes Cardiovascular Cardiovascular exam: Present normal rate and rhythm, JVD, +S1 and +S2; Absent RRR GI/Abdominal GI/Abdominal exam: Present diminished bowel sounds and distended Extremities Exam Extremities exam: Present normal inspection and neurovascular intact Neurological Exam Neurological exam: Present alert and oriented X3; Absent motor sensory deficit Psychiatric Psychiatric exam: Present normal affect A/P Assessment and plan (1) Small bowel obstruction: Status: Acute (2) Chronic use of opiate drug for therapeutic purpose: Status: Chronic Plan Patient has been counseled for emergency laparotomy. He gets his informed consent and it will be performed later today Sepsis Sepsis Identified: No Time Spent With Patient Time: Total time spent is greater than 50% in coordination of care (as documented) at patient's floor/unit and/or counseling patient:
[2022-08-16] MEDS ORDERED: MAGNESIUM SULFATE 2 GM/50 ML BAG IV ONE (13:10)
[2022-08-16] MEDS ORDERED: LIDOCAINE HCL/PF 100 MG/5 ML SYRINGE IV ONE (13:10)
[2022-08-16] MEDS ORDERED: SUGAMMADEX SODIUM 200 MG/2 ML VIAL IV ONE (13:10)
[2022-08-16] MEDS ORDERED: DEXAMETHASONE 10 MG/ML VIAL ONE (13:10)
[2022-08-16] MEDS ORDERED: fentaNYL 100 MCG/2 ML VIAL IV ONE (13:10)
[2022-08-16] MEDS ORDERED: PROPOFOL 200 MG/20 ML VIAL IV ONE (13:10)
[2022-08-16] MEDS ORDERED: ONDANSETRON 4 MG/2 ML VIAL ONE (13:10)
[2022-08-16] MEDS ORDERED: KETAMINE 50 MG/ML Syringe (ANEST) IV ONE (13:10)
[2022-08-16] MEDS ORDERED: ROCURONIUM 10 MG/ML ML IV ONE (13:10)
[2022-08-16] MEDS ORDERED: NALOXONE HCL 0.4 MG/ML VIAL IV PRN (14:13)
[2022-08-16] MEDS ORDERED: LACTATED RINGERS 250 ML IV PRN (14:13)
[2022-08-16] MEDS ORDERED: ONDANSETRON 4 MG/2 ML VIAL IV PRN (14:13)
[2022-08-16] MEDS ORDERED: diphenhydrAMINE 50 MG/ML VIAL IV PRN (14:13)
[2022-08-16] MEDS ORDERED: MEPERIDINE 25 MG/ML VIAL IV PRN (14:13)
[2022-08-16] MEDS ORDERED: IPRATROPIUM/ALBUTEROL 3 ML AMPUL.NEB NEB PRN (14:13)
[2022-08-16] MEDS ORDERED: PROMETHAZINE 25 MG/ML VIAL IV PRN (14:13)
[2022-08-16] MEDS ORDERED: ACETAMINOPHEN 1,000 MG/100 ML BAG IV ONE (14:13)
[2022-08-16] MEDS ORDERED: LACTATED RINGERS 1,000 ML IV SCH (14:15)
--- NOTE | 2022-08-16 14:24 | Brief Operative Note ---
Brief Operative Note Date of procedure: 08/16/22 Pre-op diagnosis: SMALL BOWEL OBSTRUCTION Post-op diagnosis: other (SMALL BOWEL OBSTRUCTION DUE TO EXTENSIVE ADHESIONS) Procedure: EXPLORATORY LAPAROTOMY WITH ADHESIOLYSIS Grafts/Implants: No Anesthesia: GETA Findings: 6 AREAS OF NEAR COMPLETE OBSTRUCTION DUE TO ADHESIONS Complications: none Surgeon: Priya Paul Estimated blood loss (cc): 10 Specimens Removed/Pathology: none sent Condition: stable Disposition: PACU
[2022-08-16] MEDS: fentaNYL 100 MCG/2 ML VIAL IV PRN ×4 (14:33→14:49)
[2022-08-16] MEDS ORDERED: KETOROLAC 30 MG/ML VIAL IV ONE (14:33)
[2022-08-17] MEDS: PIPERACILLIN SODIUM/TAZOBACTAM 3.375 GM in DEXTROSE 5% IN WATER 50 ML IV SCH ×4 (00:27→17:47)
[2022-08-17] MEDS: METOCLOPRAMIDE 10 MG/2 ML VIAL IV SCH ×4 (00:27→17:47)
[2022-08-17] MEDS: HYDROmorphone 0.5 MG/0.5 ML SYRINGE IV PRN ×9 (00:32→22:07)
[2022-08-17] MEDS: 0.9 % SODIUM CHLORIDE 1,000 ML IV SCH ×4 (02:38→20:35)
[2022-08-17] MEDS: 0.9 % SODIUM CHLORIDE 10 ML SYRINGE IV SCH ×3 (05:55→20:36)
[2022-08-17 07:49] LABS: ALT/SGPT 85 U/L (<40); AST/SGOT 22 U/L (<40); Albumin 3.5 gm/dL (3.2-5.2); Albumin/Globulin Ratio 1.9 (1.0-2.3); Alkaline Phosphatase 59 U/L (39-117); Bilirubin,Direct 0.4 mg/dL (<0.3); Bilirubin,Total 1.2 mg/dL (0.1-1.0); Blood Urea Nitrogen 14 mg/dL (8-23); Calcium 8.5 mg/dL (8.6-10.4); Carbon Dioxide 30 mmol/L (22-30); Chloride 99 mmol/L (96-108); Globulin 1.8 gm/dL (2.2-3.7); Glomerular Filtration Rate 102; Glucose 154 mg/dL (70-105); Lactate Dehydrogenase 215 U/L (135-225); Phosphorous 3.5 mg/dL (2.5-4.5); Triglycerides 82 mg/dL (<150); Uric Acid 5.8 mg/dL (2.5-8.0)
[2022-08-17] MEDS: cloNIDine HCL 0.1 MG TABLET PO SCH ×3 (08:08→20:34)
[2022-08-17] MEDS: methylPREDNISolone SOD SUCC 125 MG/2 ML VIAL IV SCH ×2 (08:08→20:35)
[2022-08-17] MEDS: Ipratropium-Albuterol [Combivent Respimat] 20-100 INH SCH ×4 (08:09→20:36)
[2022-08-17] MEDS: BECLOMETHASONE DIPROPIONATE INH SCH ×2 (08:10→20:36)
[2022-08-17] MEDS: IPRATROPIUM/ALBUTEROL 3 ML AMPUL.NEB NEB PRN (11:19)
--- NOTE | 2022-08-17 12:55 | EKG ---
[facility] Test Date: 2022-08-16 Pat Name: Scott Bright Department: [facility] Room: 126 Gender: Male Processing Inspector: : 1960 Requested By: Priya Paul Order Number: [id number] Reading MD: Marcel Freedman M.D. Measurements Intervals Devers Rate: 60 P: 48 IN: 190 QRS: 47 QRSD: 89 T: 29 QT: 410 QTc: 411 Interpretive Statements Sinus rhythm Low voltage, extremity leads Electronically Signed On 08-17-2022 12:55:19 PST by Marcel Freedman M.D. /[email or web address]/[email or web address]/[id number]
--- NOTE | 2022-08-17 15:09 | General Surgery Progress Note ---
SUBJECTIVE Subjective Patient information: Note initiated : 08/17/22 at 3:05 pm Service Date, if different from initiated Date: [] Patient: Scott Bright 62 y/o M admitted on 08/11/22 for Abd pain. Chief Complaint: [] Principal diagnosis: Partial small bowel obstruction Interval history: Patient is feeling better. His pain is controlled. He had some gas and bowel movement earlier today. Constitutional Vitals: Vital Signs Temp Pulse Resp BP Pulse Ox O2 Del Method O2 Flow Rate 97.9 F 85 18 136/96 98 2 08/17/22 12:00 08/17/22 14:47 08/17/22 14:47 08/17/22 12:00 08/17/22 14:47 08/17/22 14:47 08/17/22 14:47 Period Temp Pulse Resp BP Sys/Herr Pulse Ox O2 Del Method O2 Flow Rate Last 24 Hr 97.9 F-98.9 F 59-85 9-20 107-143/73-96 93-98 Nasal Cannula- Room Air 2-4 Intake and Output 08/17/22 08/17/22 08/17/22 03:59 11:59 19:59 Intake Total 1050 1100 Output Total 1850 1375 400 Balance -800 -275 -400 Weight 254 lb Intake & Output: Intake & Output 08/17/22 08/17/22 08/17/22 03:59 11:59 19:59 Intake Total 1050 1100 Output Total 1850 1375 400 Balance -800 -275 -400 Weight 254 lb Intake: IV 1050 1100 Sodium Chloride 0.9% 1,000 ml @ 1000 1000 150 mls/hr IV .Q6H40M [facility] Rx#: [id number] Zosyn 3.375 gm In Dextrose 5% 50 100 in Water 50 ml @ 100 mls/hr IV Q6H [facility] Rx#:[id number] Oral 0 Output: Gastric Drainage 1000 950 NG/OG 1000 950 Void Amount 850 425 400 Other: Urine Appearance Clear Clear Urine Color Light Haydee Bright Yellow Dark Yellow Urine Odor Normal Stool Size Moderate Stool Consistency Liquid ENT ENT exam: Present mucous membranes moist and normal oropharynx Neck Neck exam: Present full ROM and normal inspection Respiratory Respiratory exam: Present normal respiratory exam and CTAB; Absent rales Cardiovascular Cardiovascular exam: Present normal rate and rhythm, RRR, +S1 and +S2; Absent JVD GI/Abdominal GI/Abdominal exam: Present diminished bowel sounds, distended (Abdomen is less distended) and tenderness (Moderate incisional tenderness) Extremities Exam Extremities exam: Present normal inspection and neurovascular intact Neurological Exam Neurological exam: Present alert and oriented X3; Absent motor sensory deficit Psychiatric Psychiatric exam: Present normal affect and normal mood A/P Assessment and plan (1) Small bowel obstruction: Status: Acute (2) Adynamic ileus: Status: Chronic Plan Patient is improved. Will clamp nasogastric tube and give 3 doses of milk of magnesia; continue metoclopramide 2 view abdominal x-ray in a.m. Sepsis Sepsis Identified: No Time Spent With Patient Time: Total time spent is greater than 50% in coordination of care (as documented) at patient's floor/unit and/or counseling patient:
[2022-08-17] MEDS ORDERED: MAGNESIUM HYDROXIDE 30 ML ORAL.SUSP ONE (20:24)
[2022-08-17] MEDS: MAGNESIUM HYDROXIDE 30 ML ORAL.SUSP PO SCH (20:35)
[2022-08-18] MEDS: METOCLOPRAMIDE 10 MG/2 ML VIAL IV SCH ×5 (00:08→23:36)
[2022-08-18] MEDS: PIPERACILLIN SODIUM/TAZOBACTAM 3.375 GM in DEXTROSE 5% IN WATER 50 ML IV SCH ×5 (00:08→23:36)
[2022-08-18] MEDS: MAGNESIUM HYDROXIDE 30 ML ORAL.SUSP PO SCH ×3 (00:08→09:11)
[2022-08-18] MEDS: HYDROmorphone 0.5 MG/0.5 ML SYRINGE IV PRN ×10 (00:09→23:35)
[2022-08-18] MEDS: 0.9 % SODIUM CHLORIDE 1,000 ML IV SCH ×6 (02:48→22:33)
[2022-08-18] MEDS: 0.9 % SODIUM CHLORIDE 10 ML SYRINGE IV SCH ×3 (05:27→21:20)
[2022-08-18 07:44] LABS: Basophils # (Auto) 0.03 K/mcL (0.00-0.30); Basophils % (Auto) 0.2 % (0.0-2.0); Eosinophils # (Auto) 0 K/mcL (0.00-0.70); Eosinophils % (Auto) 0 % (0.0-7.0); Hematocrit 44.9 % (40.1-51.0); Hemoglobin 15.2 g/dL (13.7-17.5); Lymphocytes # (Auto) 1.17 K/mcL (1.50-4.80); Lymphocytes % (Auto) 8.7 % (15.5-49.0); Mean Cell Volume 91.3 fL (80.0-100.0); Mean Corpuscular HGB Conc 33.9 g/dL (31.0-36.0); Mean Platelet Volume 11.2 fL (8.8-12.5); Monocytes # (Auto) 0.79 K/mcL (0.10-0.90); Monocytes % (Auto) 5.9 % (1.0-12.0); Neutrophils % (Auto) 83.9 % (38.0-78.0); Platelet Count 190 K/mcL (140-440); RBC 4.92 M/mcL (4.63-6.08); Red Cell Distribution Width 12.2 % (11.5-14.5); WBC 13.5 K/mcL (4.5-11.0)
[2022-08-18 08:07] LABS: ALT/SGPT 64 U/L (<40); AST/SGOT 17 U/L (<40); Albumin 3.3 gm/dL (3.2-5.2); Albumin/Globulin Ratio 1.6 (1.0-2.3); Alkaline Phosphatase 58 U/L (39-117); Bilirubin,Direct 0.3 mg/dL (<0.3); Blood Urea Nitrogen 14 mg/dL (8-23); Calcium 8.4 mg/dL (8.6-10.4); Carbon Dioxide 35 mmol/L (22-30); Chloride 99 mmol/L (96-108); Globulin 2.1 gm/dL (2.2-3.7); Glomerular Filtration Rate 102; Glucose 137 mg/dL (70-105); Lactate Dehydrogenase 232 U/L (135-225); Triglycerides 86 mg/dL (<150); Uric Acid 5.6 mg/dL (2.5-8.0)
[2022-08-18] MEDS: methylPREDNISolone SOD SUCC 125 MG/2 ML VIAL IV SCH ×2 (09:11→21:18)
[2022-08-18] MEDS: Ipratropium-Albuterol [Combivent Respimat] 20-100 INH SCH ×4 (09:12→19:52)
[2022-08-18] MEDS: BECLOMETHASONE DIPROPIONATE INH SCH ×2 (09:13→19:52)
[2022-08-18] MEDS: cloNIDine HCL 0.1 MG TABLET PO SCH ×4 (09:13→21:17)
--- NOTE | 2022-08-18 10:50 | XRay Report ---
CLINICAL INFORMATION: FOR F/U OF ILEUS COMPARISON: 08/16/2022 FINDINGS: NG tip overlies the distal gastric antrum. Multiple loops of small bowel in the central abdomen are mildly dilated with air-fluid levels. There is less colonic gas in today's exam with only minimal in the hepatic flexure and scattered within the descending and transverse colon. IMPRESSION: Recurrent partial distal small bowel obstruction pattern Interpreted and Authenticated by: Marcel Fitzpatrick 08/18/22
--- NOTE | 2022-08-18 12:10 | General Surgery Progress Note ---
SUBJECTIVE Subjective Patient information: Note initiated : 08/18/22 at 12:04 pm Service Date, if different from initiated Date: [] Patient: Scott Bright 62 y/o M admitted on 08/11/22 for Abd pain. Chief Complaint: [] Seems to feel well this this AM, minimal pain, no flatus at this time but tole rating NGT clapmping thus far Principal diagnosis: Partial small bowel obstruction Constitutional Vitals: Vital Signs Temp Pulse Resp BP Pulse Ox O2 Del Method O2 Flow Rate 98.4 F 59 L 20 145/74 93 2 08/18/22 11:50 08/18/22 11:50 08/18/22 11:50 08/18/22 11:50 08/18/22 11:57 08/18/22 11:57 08/18/22 11:57 Period Temp Pulse Resp BP Sys/Herr Pulse Ox O2 Del Method O2 Flow Rate Last 24 Hr 97.2 F-98.4 F 58-85 16-20 132-150/65-93 93-98 Nasal Cannula- Nasal Cannula 2-2 Intake and Output 08/18/22 08/18/22 08/18/22 03:59 11:59 19:59 Intake Total 1150 1050 Output Total 1175 400 Balance -25 650 Weight 253 lb 3 oz Intake & Output: Intake & Output 08/18/22 08/18/22 08/18/22 03:59 11:59 19:59 Intake Total 1150 1050 Output Total 1175 400 Balance -25 650 Weight 253 lb 3 oz Intake: IV 1050 1050 Sodium Chloride 0.9% 1,000 ml @ 1000 1000 150 mls/hr IV .Q6H40M [facility] Rx#: [id number] Zosyn 3.375 gm In Dextrose 5% 50 50 in Water 50 ml @ 100 mls/hr IV Q6H [facility] Rx#:[id number] Oral 100 Tube Feeding 0 0 Output: Void Amount 1125 400 Stool 50 Other: Urine Appearance Clear Urine Color Light Haydee Exam: Looks well, NAD, pleasantly conversant Respiratory Additional comments: normal effort, non labored Cardiovascular Cardiovascular exam: Present RRR GI/Abdominal Additional comments: soft and non tender, significant distension new dressing in place looks dry and intact Extremities Exam Additional comments: well perfused A/P Assessment and plan (1) Partial small bowel obstruction: Status: Acute Plan POD #2 Ex Lap, Lysis of Adhesions for SBO Doing Well this AM Plain films consistent with bowel function not yet normalized Increase activity as able (non ambulatory at home) Leave NGT in place for now Re check labs in AM Time Spent With Patient Time: Total time spent is greater than 50% in coordination of care (as documented) at patient's floor/unit and/or counseling patient:
[2022-08-18] MEDS ORDERED: CETIRIZINE 10 MG TABLET PO PRN (14:35)
[2022-08-18] MEDS ORDERED: FEXOFENADINE 180 MG TABLET PO PRN (14:39)
[2022-08-18] MEDS: predniSONE 10 MG TABLET PO SCH (15:46)
[2022-08-18] MEDS: OMEPRAZOLE 20 MG CAPSULE PO SCH (15:46)
[2022-08-18] MEDS: ESCITALOPRAM 10 MG TABLET PO SCH (15:46)
[2022-08-18] MEDS: buPROPion 100 MG TAB.SR.12H PO SCH (15:46)
[2022-08-18] MEDS: THEOPHYLLINE ANHYDROUS 400 MG TAB.XL.24H PO SCH (15:52)
[2022-08-18] MEDS: IPRATROPIUM/ALBUTEROL 3 ML AMPUL.NEB NEB PRN (19:27)
[2022-08-18] MEDS: QUEtiapine 25 MG TABLET PO SCH (21:17)
[2022-08-19] MEDS: 0.9 % SODIUM CHLORIDE 1,000 ML IV SCH ×4 (03:10→21:50)
[2022-08-19] MEDS: HYDROmorphone 0.5 MG/0.5 ML SYRINGE IV PRN ×9 (03:10→21:49)
[2022-08-19] MEDS: 0.9 % SODIUM CHLORIDE 10 ML SYRINGE IV SCH ×3 (05:29→21:38)
[2022-08-19] MEDS: METOCLOPRAMIDE 10 MG/2 ML VIAL IV SCH ×3 (05:29→17:05)
[2022-08-19] MEDS: PIPERACILLIN SODIUM/TAZOBACTAM 3.375 GM in DEXTROSE 5% IN WATER 50 ML IV SCH ×3 (05:29→17:05)
[2022-08-19 06:49] LABS: Basophils # (Auto) 0.03 K/mcL (0.00-0.30); Basophils % (Auto) 0.2 % (0.0-2.0); Eosinophils # (Auto) 0.01 K/mcL (0.00-0.70); Eosinophils % (Auto) 0.1 % (0.0-7.0); Hematocrit 45.7 % (40.1-51.0); Hemoglobin 15.4 g/dL (13.7-17.5); Lymphocytes # (Auto) 0.71 K/mcL (1.50-4.80); Lymphocytes % (Auto) 5.6 % (15.5-49.0); Mean Cell Volume 92.1 fL (80.0-100.0); Mean Corpuscular HGB Conc 33.7 g/dL (31.0-36.0); Mean Platelet Volume 11.3 fL (8.8-12.5); Monocytes # (Auto) 0.42 K/mcL (0.10-0.90); Monocytes % (Auto) 3.3 % (1.0-12.0); Neutrophils % (Auto) 89.4 % (38.0-78.0); Platelet Count 181 K/mcL (140-440); RBC 4.96 M/mcL (4.63-6.08); Red Cell Distribution Width 12.1 % (11.5-14.5); WBC 12.7 K/mcL (4.5-11.0)
[2022-08-19 07:10] LABS: ALT/SGPT 54 U/L (<40); AST/SGOT 17 U/L (<40); Albumin 3.3 gm/dL (3.2-5.2); Albumin/Globulin Ratio 1.6 (1.0-2.3); Alkaline Phosphatase 57 U/L (39-117); Bilirubin,Direct 0.3 mg/dL (<0.3); Bilirubin,Total 0.9 mg/dL (0.1-1.0); Blood Urea Nitrogen 13 mg/dL (8-23); Calcium 8.5 mg/dL (8.6-10.4); Carbon Dioxide 25 mmol/L (22-30); Chloride 98 mmol/L (96-108); Globulin 2.1 gm/dL (2.2-3.7); Glomerular Filtration Rate 102; Glucose 147 mg/dL (70-105); Lactate Dehydrogenase 212 U/L (135-225); Phosphorous 3.7 mg/dL (2.5-4.5); Triglycerides 79 mg/dL (<150); Uric Acid 5.4 mg/dL (2.5-8.0)
[2022-08-19] MEDS: IPRATROPIUM/ALBUTEROL 3 ML AMPUL.NEB NEB PRN (08:38)
[2022-08-19] MEDS: methylPREDNISolone SOD SUCC 125 MG/2 ML VIAL IV SCH ×2 (08:50→21:37)
[2022-08-19] MEDS: predniSONE 10 MG TABLET PO SCH (08:51)
[2022-08-19] MEDS: buPROPion 100 MG TAB.SR.12H PO SCH (08:51)
[2022-08-19] MEDS: ESCITALOPRAM 10 MG TABLET PO SCH (08:51)
[2022-08-19] MEDS: OMEPRAZOLE 20 MG CAPSULE PO SCH (08:52)
[2022-08-19] MEDS: THEOPHYLLINE ANHYDROUS 400 MG TAB.XL.24H PO SCH (08:52)
[2022-08-19] MEDS: cloNIDine HCL 0.1 MG TABLET PO SCH ×3 (08:52→21:37)
[2022-08-19] MEDS: MAGNESIUM HYDROXIDE 30 ML ORAL.SUSP PO SCH (08:53)
[2022-08-19] MEDS: BECLOMETHASONE DIPROPIONATE INH SCH ×2 (09:01→21:38)
[2022-08-19] MEDS: Ipratropium-Albuterol [Combivent Respimat] 20-100 INH SCH ×4 (09:01→21:37)
--- NOTE | 2022-08-19 10:37 | General Surgery Progress Note ---
SUBJECTIVE Subjective Patient information: Note initiated : 08/19/22 at 10:34 am Service Date, if different from initiated Date: [] Patient: Scott Bright 62 y/o M admitted on 08/11/22 for Abd pain. Chief Complaint: [] Feels well this am, had several BMs late in the day yesterday, has been passing gas Principal diagnosis: Partial small bowel obstruction Constitutional Vitals: Vital Signs Temp Pulse Resp BP Pulse Ox O2 Del Method O2 Flow Rate 97 F 57 L 16 124/85 98 2 08/19/22 07:36 08/19/22 03:12 08/19/22 08:40 08/19/22 07:36 08/19/22 07:36 08/19/22 08:40 08/19/22 06:03 Period Temp Pulse Resp BP Sys/Herr Pulse Ox O2 Del Method O2 Flow Rate Last 24 Hr 97 F-98.4 F 56-72 16-20 123-151/74-94 93-99 Nasal Cannula-Room Air 2-2 Intake and Output 08/18/22 08/19/22 08/19/22 19:59 03:59 11:59 Intake Total 1100 1200 530 Output Total 2060 2726 1175 Balance -960 -1526 -645 Weight 253 lb 6 oz Intake & Output: Intake & Output 08/18/22 08/19/22 08/19/22 19:59 03:59 11:59 Intake Total 1100 1200 530 Output Total 2060 2726 1175 Balance -960 -1526 -645 Weight 253 lb 6 oz Intake: IV 1100 1050 50 Sodium Chloride 0.9% 1,000 ml @ 1000 1000 150 mls/hr IV .Q6H40M [facility] Rx#: [id number] Zosyn 3.375 gm In Dextrose 5% 100 50 50 in Water 50 ml @ 100 mls/hr IV Q6H [facility] Rx#:[id number] Oral 150 480 Tube Feeding 0 Output: Void Amount 2060 2675 1125 Urine/Stool Mix 1 Stool 50 50 Other: Urine Appearance Clear Clear Clear Urine Color Yellow Yellow Bright Yellow Pale Urine Odor Normal Normal Stool Size Large Small Stool Color Brown Brown Stool Consistency Liquid Soft Watery Liquid Watery # Bowel Movements 1 Exam: Looks well, NAD Respiratory Additional comments: normal effort without distress Cardiovascular Cardiovascular exam: Present RRR GI/Abdominal Additional comments: soft and less distended than yesterday, midline dressing and incision appears intact Extremities Exam Additional comments: well perfused A/P Assessment and plan (1) Small bowel obstruction: Assessment and plan: Resolving SBO D/C NGT and Start Clears Continue to increase activity as able and tolerated Status: Acute Time Spent With Patient Time: Total time spent is greater than 50% in coordination of care (as documented) at patient's floor/unit and/or counseling patient:
--- NOTE | 2022-08-19 14:26 | XRay Report ---
CLINICAL INFORMATION: FOR F/U OF ILEUS COMPARISON: 08/16/2022 FINDINGS: NG tip overlies the distal gastric antrum. Multiple loops of small bowel in the central abdomen has normalized in caliber and there is now more air within the colon. There is no free air. IMPRESSION: Resolution of distal small bowel obstruction pattern Interpreted and Authenticated by: Marcel Fitzpatrick 08/19/22
[2022-08-19] MEDS: QUEtiapine 25 MG TABLET PO SCH (21:37)
[2022-08-20] MEDS: PIPERACILLIN SODIUM/TAZOBACTAM 3.375 GM in DEXTROSE 5% IN WATER 50 ML IV SCH ×5 (00:15→23:18)
[2022-08-20] MEDS: METOCLOPRAMIDE 10 MG/2 ML VIAL IV SCH ×5 (00:15→23:30)
[2022-08-20] MEDS: HYDROmorphone 0.5 MG/0.5 ML SYRINGE IV PRN ×9 (00:16→22:59)
[2022-08-20] MEDS: 0.9 % SODIUM CHLORIDE 10 ML SYRINGE IV SCH ×3 (05:12→20:53)
[2022-08-20 06:37] LABS: Basophils # (Auto) 0.02 K/mcL (0.00-0.30); Basophils % (Auto) 0.2 % (0.0-2.0); Eosinophils # (Auto) 0.01 K/mcL (0.00-0.70); Eosinophils % (Auto) 0.1 % (0.0-7.0); Hematocrit 44.8 % (40.1-51.0); Hemoglobin 15.4 g/dL (13.7-17.5); Lymphocytes # (Auto) 0.69 K/mcL (1.50-4.80); Lymphocytes % (Auto) 5.6 % (15.5-49.0); Mean Cell Volume 89.8 fL (80.0-100.0); Mean Corpuscular HGB Conc 34.4 g/dL (31.0-36.0); Monocytes # (Auto) 0.39 K/mcL (0.10-0.90); Monocytes % (Auto) 3.1 % (1.0-12.0); Neutrophils % (Auto) 89.3 % (38.0-78.0); Platelet Count 187 K/mcL (140-440); RBC 4.99 M/mcL (4.63-6.08); Red Cell Distribution Width 12.2 % (11.5-14.5); WBC 12.4 K/mcL (4.5-11.0)
[2022-08-20 06:58] LABS: ALT/SGPT 49 U/L (<40); AST/SGOT 19 U/L (<40); Albumin 3.3 gm/dL (3.2-5.2); Albumin/Globulin Ratio 1.5 (1.0-2.3); Alkaline Phosphatase 56 U/L (39-117); Bilirubin,Direct 0.3 mg/dL (<0.3); Bilirubin,Total 0.9 mg/dL (0.1-1.0); Blood Urea Nitrogen 10 mg/dL (8-23); Carbon Dioxide 27 mmol/L (22-30); Chloride 99 mmol/L (96-108); Globulin 2.2 gm/dL (2.2-3.7); Glomerular Filtration Rate 102; Glucose 150 mg/dL (70-105); Lactate Dehydrogenase 215 U/L (135-225); Phosphorous 3.4 mg/dL (2.5-4.5); Triglycerides 67 mg/dL (<150); Uric Acid 5.1 mg/dL (2.5-8.0)
[2022-08-20] MEDS: IPRATROPIUM/ALBUTEROL 3 ML AMPUL.NEB NEB PRN (07:52)
[2022-08-20] MEDS: MAGNESIUM HYDROXIDE 30 ML ORAL.SUSP PO SCH (08:34)
[2022-08-20] MEDS: OMEPRAZOLE 20 MG CAPSULE PO SCH (08:35)
[2022-08-20] MEDS: methylPREDNISolone SOD SUCC 125 MG/2 ML VIAL IV SCH ×2 (08:35→20:52)
[2022-08-20] MEDS: 0.9 % SODIUM CHLORIDE 1,000 ML IV SCH (08:35)
[2022-08-20] MEDS: buPROPion 100 MG TAB.SR.12H PO SCH (08:36)
[2022-08-20] MEDS: cloNIDine HCL 0.1 MG TABLET PO SCH ×3 (08:36→20:54)
[2022-08-20] MEDS: predniSONE 10 MG TABLET PO SCH (08:37)
[2022-08-20] MEDS: THEOPHYLLINE ANHYDROUS 400 MG TAB.XL.24H PO SCH (08:37)
[2022-08-20] MEDS: ESCITALOPRAM 10 MG TABLET PO SCH (08:37)
[2022-08-20] MEDS: BECLOMETHASONE DIPROPIONATE INH SCH ×2 (09:44→20:57)
[2022-08-20] MEDS: Ipratropium-Albuterol [Combivent Respimat] 20-100 INH SCH ×4 (09:45→20:57)
--- NOTE | 2022-08-20 19:02 | General Surgery Progress Note ---
SUBJECTIVE Subjective Patient information: Note initiated : 08/20/22 at 1245 pm Service Date, if different from initiated Date: [] Patient: Scott Bright 62 y/o M admitted on 08/11/22 for Abd pain. Chief Complaint: [] Feels like he is doing well, ready to further diet. Had an unwitnessed fall th at he reported to nursing - by his and their report, did not hit head and had no LOC Principal diagnosis: Partial small bowel obstruction Constitutional Vitals: Vital Signs Temp Pulse Resp BP Pulse Ox O2 Del Method O2 Flow Rate 98.8 F 80 20 140/87 98 2 08/20/22 15:32 08/20/22 15:32 08/20/22 15:32 08/20/22 15:32 08/20/22 15:32 08/20/22 15:32 08/20/22 06:27 Period Temp Pulse Resp BP Sys/Herr Pulse Ox O2 Del Method O2 Flow Rate Last 24 Hr 97.7 F-98.8 F 58-82 16-20 122-155/79-98 95-99 Nasal Cannula- Room Air 2-2 Intake and Output 08/20/22 08/20/22 08/20/22 03:59 11:59 19:59 Intake Total 2200 1530 1550 Output Total 3450 1250 1600 Balance -1250 280 -50 Weight 252 lb Patient Weight 08/21/22 03:59 Weight 252 lb Intake & Output: Intake & Output 08/20/22 08/20/22 08/20/22 03:59 11:59 19:59 Intake Total 2200 1530 1550 Output Total 3450 1250 1600 Balance -1250 280 -50 Weight 252 lb Intake: IV 1050 1050 100 Sodium Chloride 0.9% 1,000 ml @ 1000 1000 100 mls/hr IV .Q10H [facility] Rx#: [id number] Zosyn 3.375 gm In Dextrose 5% 50 50 100 in Water 50 ml @ 100 mls/hr IV Q6H [facility] Rx#:[id number] Oral 8200 853 6725 Output: Void Amount 3375 1250 1600 Stool 75 Other: Meal Breakfast Lunch Percent of Meal Consumed 100% 100% Feeding Ability Independent Urine Color Yellow Yellow Urine Odor Normal Normal Stool Color Brown Stool Consistency Liquid Exam: Looks well, non toxic, NAD, pleasantly conversant, family in room Respiratory Respiratory exam: Present normal respiratory exam Additional comments: normal effort without distress Cardiovascular Cardiovascular exam: Present RRR GI/Abdominal Additional comments: soft and non distended, non tender, midline dressing looks great Extremities Exam Additional comments: well perfused A/P Assessment and plan (1) Small bowel obstruction: Assessment and plan: POD #4 Ex Lap, Lysis of Adhesions for non resolving SBO Doing Well Advance Diet Saline Lock IVF Increase activity OOB with assistance only for now Status: Acute Time Spent With Patient Time: Total time spent is greater than 50% in coordination of care (as documented) at patient's floor/unit and/or counseling patient:
[2022-08-20] MEDS: QUEtiapine 25 MG TABLET PO SCH (20:54)
[2022-08-20] MEDS: ZOLPIDEM 5 MG TABLET PO PRN (20:54)
[2022-08-21] MEDS: HYDROmorphone 0.5 MG/0.5 ML SYRINGE IV PRN ×5 (01:57→21:08)
[2022-08-21] MEDS: METOCLOPRAMIDE 10 MG/2 ML VIAL IV SCH ×4 (04:58→23:41)
[2022-08-21] MEDS: PIPERACILLIN SODIUM/TAZOBACTAM 3.375 GM in DEXTROSE 5% IN WATER 50 ML IV SCH ×4 (04:59→23:41)
[2022-08-21] MEDS: 0.9 % SODIUM CHLORIDE 10 ML SYRINGE IV SCH ×3 (05:40→21:09)
[2022-08-21] MEDS ORDERED: oxyCODONE HCL 5 MG TABLET PO PRN (07:35)
[2022-08-21] MEDS: OMEPRAZOLE 20 MG CAPSULE PO SCH (09:04)
[2022-08-21] MEDS: buPROPion 100 MG TAB.SR.12H PO SCH (09:04)
[2022-08-21] MEDS: methylPREDNISolone SOD SUCC 125 MG/2 ML VIAL IV SCH ×2 (09:04→21:08)
[2022-08-21] MEDS: MAGNESIUM HYDROXIDE 30 ML ORAL.SUSP PO SCH (09:04)
[2022-08-21] MEDS: predniSONE 10 MG TABLET PO SCH (09:04)
[2022-08-21] MEDS: Ipratropium-Albuterol [Combivent Respimat] 20-100 INH SCH ×4 (09:05→21:09)
[2022-08-21] MEDS: ESCITALOPRAM 10 MG TABLET PO SCH (09:10)
[2022-08-21] MEDS: THEOPHYLLINE ANHYDROUS 400 MG TAB.XL.24H PO SCH (09:17)
[2022-08-21] MEDS: BECLOMETHASONE DIPROPIONATE INH SCH ×2 (09:21→21:14)
[2022-08-21] MEDS: cloNIDine HCL 0.1 MG TABLET PO SCH ×3 (10:07→21:12)
--- NOTE | 2022-08-21 10:58 | General Surgery Progress Note ---
SUBJECTIVE Subjective Patient information: Note initiated : 08/21/22 at 10:54 am Service Date, if different from initiated Date: [] Patient: Scott Bright 62 y/o M admitted on 08/11/22 for Abd pain. Chief Complaint: [] Looks well, minimal pain, feels he isn't passing much in the way of gas or stool now, tolerating his diet to some degree. Principal diagnosis: Partial small bowel obstruction Constitutional Vitals: Vital Signs Temp Pulse Resp BP Pulse Ox O2 Del Method O2 Flow Rate 98.2 F 64 20 131/84 99 2 08/21/22 08:00 08/21/22 10:05 08/21/22 08:00 08/21/22 08:00 08/21/22 08:00 08/21/22 08:00 08/21/22 03:51 Period Temp Pulse Resp BP Sys/Herr Pulse Ox O2 Del Method O2 Flow Rate Last 24 Hr 96.8 F-98.8 F 52-80 18-20 111-155/67-98 96-100 Nasal Cannula- Room Air 2-2 Intake and Output 08/20/22 08/21/22 08/21/22 19:59 03:59 11:59 Intake Total 2550 350 50 Output Total 1600 2750 1275 Balance 950 -2400 -1225 Weight 252 lb 242 lb 11.2 oz Intake & Output: Intake & Output 08/20/22 08/21/22 08/21/22 19:59 03:59 11:59 Intake Total 2550 350 50 Output Total 1600 2750 1275 Balance 950 -2400 -1225 Weight 252 lb 242 lb 11.2 oz Intake: IV 1100 50 50 Sodium Chloride 0.9% 1,000 ml @ 1000 100 mls/hr IV .Q10H [facility] Rx#: [id number] Zosyn 3.375 gm In Dextrose 5% 100 50 50 in Water 50 ml @ 100 mls/hr IV Q6H [facility] Rx#:[id number] Oral 1450 300 Output: Void Amount 1600 2575 1275 Stool 175 Other: Meal Lunch Percent of Meal Consumed 100% Feeding Ability Independent Urine Appearance Clear Clear Urine Color Yellow Yellow Yellow Urine Odor Normal Normal Stool Size Small Stool Color Brown Stool Consistency Liquid Loose # Bowel Movements 1 Exam: Looks well, NAD, pleasantly conversant Respiratory Respiratory exam: Present normal respiratory exam Additional comments: normal effort without distress Cardiovascular Cardiovascular exam: Present normal rate and rhythm and RRR GI/Abdominal Additional comments: soft and non tender, ? mild distension, dressing intact A/P Assessment and plan (1) Small bowel obstruction: Assessment and plan: POD #5 Ex Lap, Lysis of Adhesions for non resolving SBO Continues to look well clinically Bowel function appears minimized per patient Add suppositories today, increase activity as able and re check plain films in AM No discharge planned for today Status: Acute Time Spent With Patient Time: Total time spent is greater than 50% in coordination of care (as documented) at patient's floor/unit and/or counseling patient:
[2022-08-21] MEDS: BISACODYL 10 MG SUPP.RECT PR SCH (11:42)
[2022-08-21] MEDS: oxyCODONE HCL 5 MG TABLET PO PRN ×3 (12:17→23:38)
[2022-08-21] MEDS: ZOLPIDEM 5 MG TABLET PO PRN (21:12)
[2022-08-21] MEDS: QUEtiapine 25 MG TABLET PO SCH (21:13)
[2022-08-22] MEDS: oxyCODONE HCL 5 MG TABLET PO PRN ×3 (03:56→08:17)
[2022-08-22] MEDS: METOCLOPRAMIDE 10 MG/2 ML VIAL IV SCH ×2 (05:57→11:55)
[2022-08-22] MEDS: 0.9 % SODIUM CHLORIDE 10 ML SYRINGE IV SCH ×2 (05:57→13:49)
[2022-08-22] MEDS: PIPERACILLIN SODIUM/TAZOBACTAM 3.375 GM in DEXTROSE 5% IN WATER 50 ML IV SCH ×2 (05:58→11:56)
[2022-08-22 06:50] LABS: Hematocrit 46.4 % (40.1-51.0); Mean Cell Volume 91.2 fL (80.0-100.0); Mean Corpuscular HGB Conc 34.5 g/dL (31.0-36.0); Mean Platelet Volume 11.3 fL (8.8-12.5); Platelet Count 172 K/mcL (140-440); RBC 5.09 M/mcL (4.63-6.08); Red Cell Distribution Width 12.4 % (11.5-14.5); WBC 13.3 K/mcL (4.5-11.0)
[2022-08-22 07:31] LABS: Blood Urea Nitrogen 13 mg/dL (8-23); Calcium 9.2 mg/dL (8.6-10.4); Carbon Dioxide 29 mmol/L (22-30); Chloride 96 mmol/L (96-108); Glomerular Filtration Rate 96; Glucose 160 mg/dL (70-105)
[2022-08-22] MEDS: MAGNESIUM HYDROXIDE 30 ML ORAL.SUSP PO SCH (08:12)
[2022-08-22] MEDS: Ipratropium-Albuterol [Combivent Respimat] 20-100 INH SCH ×2 (08:12→11:56)
[2022-08-22] MEDS: cloNIDine HCL 0.1 MG TABLET PO SCH ×2 (08:12→14:47)
[2022-08-22] MEDS: BISACODYL 10 MG SUPP.RECT PR SCH (08:12)
[2022-08-22] MEDS: ESCITALOPRAM 10 MG TABLET PO SCH (08:12)
[2022-08-22] MEDS: predniSONE 10 MG TABLET PO SCH (08:13)
[2022-08-22] MEDS: OMEPRAZOLE 20 MG CAPSULE PO SCH (08:13)
[2022-08-22] MEDS: BECLOMETHASONE DIPROPIONATE INH SCH (08:13)
[2022-08-22] MEDS: buPROPion 100 MG TAB.SR.12H PO SCH (08:14)
[2022-08-22] MEDS: methylPREDNISolone SOD SUCC 125 MG/2 ML VIAL IV SCH (08:14)
[2022-08-22] MEDS: THEOPHYLLINE ANHYDROUS 400 MG TAB.XL.24H PO SCH (08:14)
--- NOTE | 2022-08-22 09:32 | XRay Report ---
CLINICAL INFORMATION: eval for any ongoing ileus and/or sbo COMPARISON: 08/19/2022. FINDINGS: The stool gas pattern is unremarkable. There is no free air, soft tissue mass, organomegaly or pathologic calcification. IMPRESSION: Normal abdomen Interpreted and Authenticated by: Marcel Fitzpatrick 08/22/22
--- NOTE | 2022-08-22 11:49 | General Surgery Progress Note ---
SUBJECTIVE Subjective Patient information: Note initiated : 08/22/22 at 11:45 am Service Date, if different from initiated Date: [] Patient: Scott Bright 62 y/o M admitted on 08/11/22 for Abd pain. Chief Complaint: [] Feels well this am, tolerating diet, much more active bowel function, feels re maranda for discharge Principal diagnosis: Partial small bowel obstruction Constitutional Vitals: Vital Signs Temp Pulse Resp BP Pulse Ox O2 Del Method O2 Flow Rate 98.4 F 53 L 20 131/84 95 2 08/22/22 07:19 08/22/22 08:00 08/22/22 08:00 08/22/22 07:19 08/22/22 08:00 08/22/22 08:00 08/22/22 03:15 Period Temp Pulse Resp BP Sys/Herr Pulse Ox O2 Del Method O2 Flow Rate Last 24 Hr 97.0 F-98.6 F 53-70 - 116-131/74-84 95-99 Nasal Cannula- Room Air 2-2 Intake and Output 08/21/22 08/22/22 08/22/22 19:59 03:59 11:59 Intake Total 700 1480 930 Output Total 1550 1775 1150 Balance -850 -295 -220 Weight 238 lb 6.4 oz Intake & Output: Intake & Output 08/21/22 08/22/22 08/22/22 19:59 03:59 11:59 Intake Total 700 1480 930 Output Total 1550 1775 1150 Balance -850 -295 -220 Weight 238 lb 6.4 oz Intake: IV 100 50 50 Zosyn 3.375 gm In Dextrose 5% 100 50 50 in Water 50 ml @ 100 mls/hr IV Q6H [facility] Rx#:[id number] Oral 600 1430 880 Output: Void Amount 1550 1775 1150 Other: Meal Dinner Breakfast Percent of Meal Consumed 75% 100% Feeding Ability Independent Urine Appearance Clear Clear Clear Urine Color Yellow Yellow Yellow Urine Odor Normal Normal Stool Size Small Stool Color Brown Stool Consistency Formed Loose # Bowel Movements 1 Exam: Looks well, NAD Respiratory Respiratory exam: Present normal respiratory exam Additional comments: normal effort without distress Cardiovascular Cardiovascular exam: Present normal rate and rhythm and RRR GI/Abdominal Additional comments: soft and non distended, non tender, midline incision and staple line intact with some scant areas of drainage Extremities Exam Additional comments: well perfused A/P Assessment and plan (1) Small bowel obstruction: Assessment and plan: POD #6 Ex lap, lysis of adhesions Resolved SBO Doing Well, home today Clinic follow up, would leave javi another 2 weeks from now Status: Acute Time Spent With Patient Time: Total time spent is greater than 50% in coordination of care (as documented) at patient's floor/unit and/or counseling patient:
[2022-08-24 08:27] LABS: POC Calcium, Ionized 1.08 (1.16-1.32); POC Creatinine 0.8 (0.6-1.2); POC Potassium 4.1 (3.3-5.1)
--- NOTE | 2022-09-12 07:27 | Operative Note ---
DATE OF OPERATION: 08/16/2022 DATE OF PROCEDURE: 08/16/2022 PREOPERATIVE DIAGNOSIS: Small bowel obstruction. POSTOPERATIVE DIAGNOSES: Small bowel obstruction due to extensive adhesions. PROCEDURE: Exploratory laparotomy with adhesiolysis. SURGEON: Priya Paul MD FINDINGS: Six areas of near complete obstruction due to adhesion and massive dilation of the small bowel. DESCRIPTION OF PROCEDURE: Under general anesthesia, the patient's abdomen was prepped and draped in a sterile field. A midline incision was made. The small bowel was massively dilated and was adherent to the omentum. The omentum was gently removed and the small bowel was gently evaluated. There were multiple adhesions, which were dissected using Metzenbaum scissors. There were six areas of near complete obstruction due to these adhesions, which were lysed. There were other areas that were causing partial obstruction. Once the bowel was fully freed, it was followed from the ligament of Treitz to the ileocecal valve. Fluid could be easily moved through the bowel and into the cecum. Irrigation was carried out. Sponge, needle, instrument, and blade counts were verified as correct. The fascia and peritoneum were closed with running #1 Prolene. Subcutaneous tissue was closed with 2-0 Monocryl. Skin was closed with javi. The patient tolerated the procedure well. He was awakened, transferred to a bed, and taken to the postanesthetic care unit in satisfactory condition. LCS:blanche Job ID: [id number] Doc ID: [id number] Priya Paul M.D.
== END 2022-08-22 15:32 | disposition home or self-care (01) | DRG 337 ==
LOC: ED 15:18 → MEDSUR 18:01
PROVIDERS: ADMIT Family Medicine Adult Medicine; ATTEND Family Medicine Adult Medicine